=== PATIENT | male | born 1945 | race Caucasian/White ===

== ENCOUNTER 2016-10-26 06:59 | Day surgery (SDC) | payer MEDICARE ==
[2016-10-21 15:13] VITALS: BMI 27.8
[~2016-10-26 06:59] MED LIST: LACTATED RINGERS 1,000 ML IV SCH; LIDOCAINE 1% 20 ML VIAL (10MG/ML) FOR IV START INTRADERMA PRN
[2016-10-26] MEDS ORDERED: LACTATED RINGERS 1,000 ML IV ONE (07:30)
[2016-10-26] MEDS ORDERED: fentaNYL (PF) 50 MCG/ML 2 ML AMP IV ONE (07:45)
[2016-10-26 07:48] VITALS: RESP 16; TEMP 97.7
[2016-10-26] MEDS ORDERED: PROPOFOL 10 MG/ML 20 ML VIAL IV ONE (07:51)
--- NOTE | 2016-10-26 08:42 | P.PCN ---
Date of Procedure: 10/26/16 Procedure(s) Performed: Procedure: Total colonoscopy. Preoperative diagnosis: Screening for neoplasia. Postoperative diagnosis: Sigmoid diverticulosis with no evidence of acute diverticulitis, strictures, polyps or cancer. Preparation: HalfLytely prep. Sedation: Was provided by anesthesia. Brief clinical history: The patient is a 71-year-old male who is referred for this evaluation for screening for neoplasia. He had a prior exam around the time when he had diverticulitis 10 years ago. He has no abdominal complaints, bleeding or anemia. Procedure: With the patient on his left lateral decubitus position and after informed consent and adequate sedation, the perianal area was inspected and it did not show any fissures or fistulas. There were no masses felt on digital rectal examination. The Olympus CFQ 160L video colonoscope was then inserted in the rectum in the usual fashion and advanced to the cecum. Unfortunately, the preparation was less than ideal, however, I was able to clean most of the areas making sure that we are not missing significant polyps or tumors. I still think that smaller polyps or superficial pathology could have been missed in certain areas. There were multiple diverticular orifices seen scattered in the sigmoid but there was no evidence of acute diverticulitis or strictures. I retroflexed endoscope in the rectum before the endoscope was withdrawn. The patient tolerated the procedure well. Plan: The patient was reassured. Discussed dietary measures. In light of his less than ideal preparation, I suggested a repeat exam in 5 years. He will follow up with you as planned.
[2016-10-26 08:47] VITALS: PULSE 59
[2016-10-26 09:08] VITALS: BP 121/67
== END 2016-10-26 09:42 | disposition home or self-care (01) ==
LOC: ORWHC2ENDO 06:59
DX: Z12.11 Encounter for screening for malignant neoplasm of colon (principal); K57.30 Diverticulosis of large intestine without perforation or abscess without bleeding; E78.5 Hyperlipidemia, unspecified; Z79.899 Other long term (current) drug therapy
CPT/HCPCS: J3010; J2704; G0121; 45378; 99153

== ENCOUNTER → 2017-03-23 | Outpatient (CLI) | payer MEDICARE ==
--- NOTE | 2017-03-23 21:01 | MR ---
EXAMINATION TYPE: MR shoulder RT wo con DATE OF EXAM: 03/23/2017 COMPARISON: Outside right shoulder x-ray March 22, 2017. HISTORY: Rt shoulder pain x 10 mos, strained shoulder when cutting a tree TECHNIQUE: Multiplanar, multisequence imaging of the right shoulder is performed without contrast. FINDINGS: Rotator Cuff: Is increased signal distal supraspinatus tendon. There is full-thickness partial tear i nvolving anterior fibers measuring approximately 10 mm AP diameter on parasagittal image 8 near the a rticular surface. There is increased signal in the distal infraspinatus tendon. There is a regular te ar at articular surface is present with some fibers remaining intact and best paracoronal image 14. A rticular surface tears confirmed on parasagittal image 5. Rotator cuff muscle bulk is preserved. The subscapularis tendon appears intact. Surrounding fluid is noted. Acromioclavicular Joint: There is moderate joint space loss with mild spurring. Glenohumeral Joint: There is small to moderate glenohumeral joint effusion. There is joint space narr owing particularly inferiorly. Labrum: The labrum appears grossly intact given limitation of non-arthrogram study. Biceps Tendon: The long head of biceps is in normal location within bicipital groove. Bone marrow signal: No focal abnormal marrow signal is appreciated. Other: No additional significant abnormality is appreciated. IMPRESSION: 1. Severe tendinosis along with partial tears of the supraspinatus and infraspinatus tendons. Full-th ickness partial tear of the anterior fibers of supraspinatus tendon noted. 2. Moderate glenohumeral and acromioclavicular joint arthropathy as detailed above.
== END | disposition home or self-care (01) ==
LOC: RADMRIMAIN 16:56
PROVIDERS: ATTEND Orthopaedic Surgery
DX: S46.011A Strain of muscle(s) and tendon(s) of the rotator cuff of right shoulder, initial encounter (principal); M12.811 Other specific arthropathies, not elsewhere classified, right shoulder; M65.811 Other synovitis and tenosynovitis, right shoulder

== ENCOUNTER 2017-07-06 05:52 | Day surgery (SDC) | payer MEDICARE ==
--- NOTE | 2017-07-05 16:09 | HP ---
HISTORY AND PHYSICAL Surgery is 07/06/2017 Birgit Huff is a 72-year-old patient seen with progressive right shoulder pain. After treatment options were discussed, he elected to proceed with right shoulder arthroscopy. Consent regarding the procedure was obtained. Medical clearance was prior to Dr. Angeli Burton. PAST MEDICAL HISTORY: Hyperlipidemia. PAST SURGICAL HISTORY: Finger amputation. MEDICATIONS: 1. Simvastatin. 2. Multivitamins. ALLERGIES: None reported. SOCIAL HISTORY: Patient denies tobacco use. PHYSICAL EXAMINATION: Physical evaluation of the right shoulder: Flexion is 170 degrees, abduction 160 degrees. External rotation is 40 degrees with pain and weakness. There is tenderness on the anterolateral acromion rotator cuff insertion site. Impingement positive at 90 degrees. Distal neurovascular exam is intact. RADIOGRAPHS: Right shoulder revealed a type 3 anterior acromion and cystic changes of the tuberosity. An MRI of the right shoulder revealed rotator cuff tear. IMPRESSION: Right shoulder impingement with rotator cuff tear. PLAN: Right shoulder arthroscopy, subacromial decompression, probable arthroscopic rotator cuff repair and debridement. MMODL / IJN: [id number] /
[~2017-07-06 05:52] MED LIST changes: +DEXAMETHASONE SOD PHOSPHATE 10 MG/ML 1 ML VIAL IV ONE; +HYDROmorphone 1 MG/ML 1 ML SYRINGE IVP PRN; +ONDANSETRON 4 MG/2 ML VIAL IVP ONE; +ceFAZolin 2 GM in SODIUM CHLORIDE 0.9% 100 ML IVPB ONE
[2017-07-06 07:02] LABS: ALT 29 U/L (21-72); AST 20 U/L (17-59); Alkaline Phosphatase 51 U/L (38-126); Anion Gap 13 mmol/L; Blood Urea Nitrogen 27 mg/dL (9-20); Calcium 9.7 mg/dL (8.4-10.2); Carbon Dioxide 22 mmol/L (22-30); Chloride 108 mmol/L (98-107); Glucose 138 mg/dL (74-99); Non-African American GFR(MDRD) 54 (>60 ml/min/1.73 sqM); Potassium 4.3 mmol/L (3.5-5.1); Sodium 143 mmol/L (137-145); Total Bilirubin 0.6 mg/dL (0.2-1.3); Total Protein 6.7 g/dL (6.3-8.2)
[2017-07-06] MEDS ORDERED: MIDAZOLAM 2 MG/2 ML VIAL IVP ONE (07:10)
[2017-07-06] MEDS ORDERED: BUPIVACAINE (PF) 0.5% 30 ML VIAL ONE (07:30)
[2017-07-06] MEDS ORDERED: NEOSTIGMINE 1 MG/ML 10 ML VIAL ONE (07:30)
[2017-07-06] MEDS ORDERED: fentaNYL (PF) 50 MCG/ML 2 ML AMP ONE (07:30)
[2017-07-06] MEDS ORDERED: PHENYLEPHRINE-0.9% NACL SYG 1 MG/10 ML SYRINGE ONE (07:30)
[2017-07-06] MEDS ORDERED: SUCCINYLCHOLINE CHLORIDE 100 MG/5 ML SYR IV ONE (07:30)
[2017-07-06] MEDS ORDERED: ePHEDrine SULFATE/0.9% NACL/PF 50 MG/5 ML SYRINGE IV ONE (07:30)
[2017-07-06] MEDS ORDERED: LIDOCAINE 2% INJ 20 MG/ML (20 ML MDV) ONE (07:30)
[2017-07-06] MEDS ORDERED: ROCURONIUM BROMIDE 10 MG/ML 10 ML VIAL IV ONE (07:30)
[2017-07-06] MEDS ORDERED: LIDOCAINE 1% INJ 10MG/ML (20 ML MDV) ONE (07:30)
[2017-07-06] MEDS ORDERED: GLYCOPYRROLATE 0.2 MG/ML 2 ML VIAL ONE (07:30)
[2017-07-06] MEDS ORDERED: PROPOFOL 10 MG/ML 20 ML VIAL IV ONE (07:30)
[2017-07-06] MEDS ORDERED: LACTATED RINGERS 1,000 ML IV ONE (08:41)
--- NOTE | 2017-07-06 09:32 | P.OP ---
Date of Procedure: 07/06/17 Preoperative Diagnosis: Right shoulder impingement Postoperative Diagnosis: 1. Right shoulder rotator cuff tear 2. Right shoulder impingement 3. Right shoulder partial biceps tendon tear 4. Right shoulder superficial anterior/superior labral tears Procedure(s) Performed: 1. Right shoulder arthroscopic rotator cuff repair 2. Right shoulder arthroscopic subacromial decompression 3. Right shoulder arthroscopic biceps tenotomy 4. Right shoulder arthroscopic debridement labral tear Implants: 4-peek anchors Anesthesia: GETA, regional (Shoulder block) Surgeon: Von Way Capacity Manager #1: Saulo Salazar Estimated Blood Loss (ml): 15 Pathology: none sent Condition: stable Disposition: PACU Indications for Procedure: 72-year-old patient seen with progressive right shoulder pain. After treatment options were discussed, he elected to proceed with arthroscopy. Operative Findings: see description of procedure Description of Procedure: Patient underwent a shoulder block by department of anesthesia. The patient was then taken to the operative suite. The patient underwent a general anesthetic by the department of anesthesia. The patient was placed into a lateral position and secured. There was appropriate padding of the bony prominence. Right shoulder was then prepped and draped in normal sterile orthopedic fashion. We placed the extremity in 10 pounds of longitudinal traction. A posterior incision was now made for a posterior working portal site. The trocar and cannula were inserted into the glenohumeral joint. Arthroscopy was initiated. Spinal needle was now inserted anteriorly, to ascertain the anterior working portal site. An incision was now made in that area, a trocar was inserted followed by a probe. There was superficial tearing of the anterior and superior labrum. There was partial tearing of the long head biceps tendon, greater than 50%. There were grade 1 chondral moist changes of the humeral head and glenoid with no osteochondral tears present. There was an obvious rotator cuff tear visualized glenohumeral side. I performed an arthroscopic biceps tenotomy. I debrided the labral tear down to stable tissue. The residual labrum was found to be stable. Instruments were now removed from glenohumeral joint. Utilizing the posterior working portal site, the trocar and cannula were inserted into the subacromial space. Arthroscopy initiated. I made an incision 2 fingerbreadths lateral to the acromion. I introduced my trocar followed by my ArthroCare ablator. I now began ablating thick subacromial bursal tissue, which exposed the undersurface of the anterior acromion. This was diminished subacromial space. There was a very prominent anterior acromion. A motorized bur was introduced and a subacromial decompression was performed. I also excised some osteophytes off the inferior aspect of the distal clavicle. The AC joint was visualized and noted to be only moderately arthritic. I did not think enough toward a Kiley procedure. I now turned my attention to the rotator cuff. There was a large approximate 2.5 cm tear along the distal supraspinatus area. I debrided the margins down to stable tissue. I abraded the footprint with a motorized bur. I now created an assessory portal site off the lateral acromion. I now inserted 2 medial row anchors with 2 sutures each. We now passed all 8 limbs of suture through good bites of rotator cuff tendon. I now crisscrossed the sutures and introduced 2 lateral anchors compressing the tendon along the footprint very nicely. The residual suture limbs were clipped. The repair was probed and found to be stable. I now injected 1 mL Allogen intra-articular. Instruments now removed from the portal sites. All portal sites were approximated with nylon suture. Sterile dressings were applied followed by a shoulder immobilizer. Esvin MONTEZ assisted with the procedure. The patient was awakened, transferred to a bed, and taken to recovery in stable condition.
[2017-07-06 09:55] VITALS: TEMP 97.6
[2017-07-06 10:06] VITALS: RESP 16
[2017-07-06 11:56] VITALS: BP 133/71; PULSE 58
== END 2017-07-06 12:24 | disposition home or self-care (01) ==
LOC: OR 05:52
PROVIDERS: ATTEND Orthopaedic Surgery
DX: M75.101 Unspecified rotator cuff tear or rupture of right shoulder, not specified as traumatic (principal); M75.41 Impingement syndrome of right shoulder; S46.111A Strain of muscle, fascia and tendon of long head of biceps, right arm, initial encounter; S43.401A Unspecified sprain of right shoulder joint, initial encounter; M25.711 Osteophyte, right shoulder; X58.XXXA Exposure to other specified factors, initial encounter; I45.6 Pre-excitation syndrome; E78.5 Hyperlipidemia, unspecified; Z79.899 Other long term (current) drug therapy; Z79.82 Long term (current) use of aspirin
CPT/HCPCS: 80053; 29826; 29827; C1713 ×2; C1765; J2001 ×2; J2250; J1100; J2710; J0690; J2405; J3010; J2370; J0330; J2704

== ENCOUNTER → 2018-07-13 | Outpatient (CLI) | payer MEDICARE ==
--- NOTE | 2018-07-13 12:11 | CT ---
EXAMINATION TYPE: CT chest wo con DATE OF EXAM: 07/13/2018 COMPARISON: Chest x-ray 01/11/2014 HISTORY: Cough CT DLP: 272.8 mGycm. Automated Exposure Control for Dose Reduction was Utilized. TECHNIQUE: CT scan of the thorax is performed without IV contrast. FINDINGS: Lack of contrast may compromise sensitivity of the exam. LUNGS: The lungs are remarkable for minimal dependent atelectatic changes at the posterior lung bases . There is a 4 mm lung nodule in the right upper lobe axial image 27 which is indeterminate. There is no pleural effusion or pneumothorax seen. The tracheobronchial tree is patent. MEDIASTINUM: Lack of IV contrast is noted to limit evaluation for mediastinal and especially hilar ad enopathy. There are no definitive greater than 1 cm hilar or mediastinal lymph nodes. No cardiomega ly or pericardial effusion is seen. OTHER: No there are extensive coronary artery calcifications present. There is a small hiatal hernia present. Parapelvic cysts associated with the left kidney. Some metallic density present at the leve l of the head of the pancreas anteriorly is indeterminate. Right hemidiaphragm is elevated, there may be eventration. IMPRESSION: Indeterminate lung nodule, follow-up recommended in 6-12 months. Noncontrast exam. Donald ry artery disease. Additional findings above.
== END | disposition home or self-care (01) ==
LOC: RADCTMAIN 10:32
PROVIDERS: ATTEND Internal Medicine Pulmonary Disease
DX: I25.10 Atherosclerotic heart disease of native coronary artery without angina pectoris (principal)
CPT/HCPCS: 71250

== ENCOUNTER → 2018-10-30 | Outpatient (CLI) | payer MEDICARE ==
--- NOTE | 2018-10-30 14:58 | FL ---
EXAMINATION: Cervical and Thoracic Esophagram DATE OF EXAM: 10/30/2018 CLINICAL INDICATION: 73-year-old male with dysphagia, difficulty swallowing for 6 months. COMPARISON: None Total Fluoroscopy Time: 1 minute 43 seconds. Coronal images: 32. FINDINGS: The swallowing mechanism is normal and hypopharyngeal anatomy is preserved. The cervical and thoracic portions have a normal course and caliber. The mucosa is normal and no pers istent filling defect is encountered. However, there is moderate tertiary peristaltic contractions demonstrated. There is a small hiatal hernia. Valsalva and positional maneuvers failed to cause any gastroesophagea l reflux during the course of the exam. IMPRESSION: 1. Moderate esophageal tertiary peristalsis compatible with mild to moderate esophageal dysmotility. 2. Small hiatal hernia incidentally seen. No gastroesophageal reflux was identified during the course of the exam.
== END | disposition home or self-care (01) ==
LOC: RADFLWHC 09:42
PROVIDERS: ATTEND Family Medicine
DX: K44.9 Diaphragmatic hernia without obstruction or gangrene (principal); K22.4 Dyskinesia of esophagus
CPT/HCPCS: 74220

== ENCOUNTER 2019-01-29 09:11 | Day surgery (SDC) | payer MEDICARE ==
[2019-01-25 10:22] VITALS: BMI 26.2
[~2019-01-29 09:11] MED LIST changes: -DEXAMETHASONE SOD PHOSPHATE 10 MG/ML 1 ML VIAL IV ONE; -HYDROmorphone 1 MG/ML 1 ML SYRINGE IVP PRN; -ONDANSETRON 4 MG/2 ML VIAL IVP ONE; -ceFAZolin 2 GM in SODIUM CHLORIDE 0.9% 100 ML IVPB ONE
[2019-01-29 09:43] VITALS: RESP 16; TEMP 98.4
[2019-01-29] MEDS ORDERED: PROPOFOL 10 MG/ML 20 ML VIAL IV ONE (11:18)
[2019-01-29] MEDS ORDERED: LIDOCAINE 1% INJ 10MG/ML (20 ML MDV) ONE (11:18)
--- NOTE | 2019-01-29 11:45 | P.PCN ---
Date of Procedure: 01/29/19 Procedure(s) Performed: Procedure: Esophagogastroduodenoscopy and biopsy. Preoperative diagnosis: Dysphagia. Preoperative diagnosis: 1. Sliding hiatal hernia with no obvious esophagitis or complicated reflux disease. 2. Mild gastritis and duodenitis. 3. Biopsies obtained from the duodenum, antrum, cardia and esophagus. Preparation and sedation: Was provided by anesthesia. Brief clinical history: The patient is a 73-year-old male who was evaluated in the office earlier this month regarding dysphagia of one year duration which, apparently, has been getting progressively worse over the last 6 months. He had an esophagogram last month that showed a hiatal hernia and tertiary contractions. He does not take any medications for heartburn or reflux. His most difficulty is with breads and solids and some problems with his medications. No prior EGD. His last colonoscopy in October 2016 showed sigmoid diverticulosis. Procedure: With the patient on his left lateral decubitus position and after informed consent and adequate sedation, I passed the Olympus-GIF H 190 video upper endoscope through the cricopharyngeus down the esophagus. GE junction was around 38 cm from the incisors and there was a small sliding hiatal hernia but no definite esophagitis or any strictures or Parker's esophagus. The esophagus was showing sustained contractions and spasms as I was advancing the endoscope. The endoscope was then passed into the stomach which was insufflated with air and inspected in detail including the retroflex view in the cardia. There was diffuse mottling and erythema and I noted a prominent fold in the cardia. Pyloric channel did not show any ulcers. Duodenal bulb showed erythema and minimal friability but no ulcers. Post bulb area and descending duodenum did not show any obvious abnormalities. I obtained biopsies from the duodenum, antrum, cardia and esophagus then the endoscope was withdrawn. There was no indication to dilate in the absence of tight strictures. The patient tolerated the procedure well. Plan: The patient was reassured. Will await biopsy results. I will see him in follow-up in the office in make additional recommendations. I will keep you updated on his progress.
[2019-01-29 12:09] VITALS: BP 132/73; PULSE 53
== END 2019-01-29 12:13 | disposition home or self-care (01) ==
LOC: ORWHC2ENDO 09:11
DX: K29.50 Unspecified chronic gastritis without bleeding (principal); K44.9 Diaphragmatic hernia without obstruction or gangrene; K29.80 Duodenitis without bleeding; M19.90 Unspecified osteoarthritis, unspecified site; K21.0 Gastro-esophageal reflux disease with esophagitis; E78.5 Hyperlipidemia, unspecified; G47.33 Obstructive sleep apnea (adult) (pediatric); Z79.82 Long term (current) use of aspirin; Z79.899 Other long term (current) drug therapy; Z85.828 Personal history of other malignant neoplasm of skin
CPT/HCPCS: 88305; 43239; J2001; J2704

== ENCOUNTER → 2019-05-28 | Outpatient (CLI) | payer MEDICARE ==
--- NOTE | 2019-05-29 07:15 | MR ---
EXAMINATION TYPE: MR brain wo/w con DATE OF EXAM: 05/28/2019 COMPARISON: NONE HISTORY: Memory loss TECHNIQUE: Multiplanar, multisequence images of the brain and brainstem is performed without and with IV contras t, utilizing 6.5 mL intravenous Gadavist . FINDINGS: Diffusion weighted images demonstrate no evidence of a recent infarct or other diffusion ab normality. There is no worrisome extra-axial fluid collection. There is diffuse ventricular and sulc al prominence slightly more prominent over the bilateral frontal lobes. There are scattered foci of T 2 hyperintensity seen throughout the superficial, deep, and periventricular white matter. I estimate approximately 50 scattered small lesions. Midline structures demonstrate normal morphology. The craniocervical junction appears within normal limits. Post contrast images demonstrate no abnormal enhancement. The dural venous sinuses appear pa tent. The visualized sinuses are clear and the globes are intact. IMPRESSION: There is mild to moderate diffuse cerebral atrophy most prominent over the bilateral fron aly lobes with moderate chronic small vessel ischemic change present. No suspicious enhancement noted .
== END | disposition home or self-care (01) ==
LOC: RADMRIMAIN 15:21
PROVIDERS: ATTEND Psychiatry & Neurology Neurology
DX: G31.9 Degenerative disease of nervous system, unspecified (principal); I67.82 Cerebral ischemia
CPT/HCPCS: 70553; A9585

== ENCOUNTER → 2019-07-19 | Outpatient (CLI) | payer MEDICARE ==
--- NOTE | 2019-07-19 14:37 | CT ---
EXAMINATION TYPE: CT chest w con DATE OF EXAM: 07/19/2019 COMPARISON: 07/13/2008 HISTORY: Lung nodule CT DLP: 459 mGycm Automated exposure control for dose reduction was used. CONTRAST: CT scan of the chest is performed with IV Contrast, patient injected with 100 mL of Isovue 300. FINDINGS: LUNGS: The lungs are grossly clear. There is no pleural effusion or pneumothorax seen. The tracheo bronchial tree is patent. There is a stable 4 mm nodule. Linear changes at the lung bases most typica l atelectasis or scar. MEDIASTINUM: There are no greater than 1 cm hilar or mediastinal lymph nodes. There is a tiny pericar dial effusion seen. Extensive coronary artery calcifications. OTHER: Small hiatal hernia noted. Parapelvic renal cysts noted. Stable right hemidiaphragm elevation . Hypertrophic and degenerative change of the spine. There is haziness within the left upper quadrant mesentery IMPRESSION: 1. Stable 4 mm right upper lobe pulmonary nodule unchanged from the prior exam. Confirming stability over the course of 2 years recommended. Therefore, six-month follow-up recommended. 2. Extensive coronary artery calcification. 3. Nonspecific haziness to the mesentery the left upper quadrant is only partially included on exam. Recommend dedicated CT of the abdomen pelvis for further evaluation. .
== END | disposition home or self-care (01) ==
LOC: RADCTMAIN 12:51
PROVIDERS: ATTEND Family Medicine
DX: I25.10 Atherosclerotic heart disease of native coronary artery without angina pectoris (principal); R91.1 Solitary pulmonary nodule
CPT/HCPCS: 82565; 84520; 71260; 36415; Q9967

== ENCOUNTER → 2020-03-12 | Outpatient (CLI) | payer MEDICARE ==
--- NOTE | 2020-03-12 16:12 | CT ---
EXAMINATION TYPE: CT chest w con DATE OF EXAM: 03/12/2020 COMPARISON: 07/19/2019 and 07/13/2018 HISTORY: 75-year-old male follow up solitary pulmonary nodule TECHNIQUE: Contiguous axial scanning of the chest after the administration of 100 mL of Isovue 300. Coronal/sagittal reconstructions performed. CT DLP: 212.6mGycm. Automatic exposure control utilized for a dose reduction. FINDINGS: Heart normal size with a small anterior pericardial effusion, minimally increased from 07/19/2019. Co ronary artery calcifications are present. Aorta normal caliber with conventional branching anatomy. No thoracic lymphadenopathy by CT size criteria. Mild dependent atelectasis and some strandy right basilar atelectasis. 4 mm right middle lobe pulmonary nodule unchanged for 8 months. This suggests a benign etiology. 3 mm lingular pulmonary nodule, axial image 30, unchanged. No consolidation or pleural effusion. Small hiatal hernia. Otherwise, the visualized upper abdomen shows parapelvic cysts within the left k idney. Moderate stool burden is visualized. Bones: Moderate degenerative disc disease midthoracic spine. IMPRESSION: A couple pulmonary nodules measuring up to 4 mm stable for nearly 2 years back to 07/13/2018. Findings suggest a benign etiology. CAD. Small hiatal hernia.
== END | disposition home or self-care (01) ==
LOC: RADCTMAIN 14:14
PROVIDERS: ATTEND Family Medicine
DX: R91.1 Solitary pulmonary nodule (principal); I25.10 Atherosclerotic heart disease of native coronary artery without angina pectoris; K44.9 Diaphragmatic hernia without obstruction or gangrene
CPT/HCPCS: 82565; 84520; 71260; 36415; Q9967

== ENCOUNTER 2020-12-21 15:35 | Emergency (ER) | payer MEDICARE ==
[2020-12-21 15:50] VITALS: RESP 18
--- NOTE | 2020-12-21 16:15 | ED ---
General Adult HPI - General Stated complaint: SOB Time Seen by Provider: 12/21/20 15:48 Source: patient Mode of arrival: ambulatory Limitations: no limitations - History of Present Illness Initial comments: Birgit is a 75-year-old male who presents to the ER today with his with a multitude of vague complaints. Patient has a long history of obstructive sleep apnea and has been prescribed a CPAP in the past, he is really recently lost a significant amount of weight and was prescribed a new CPAP mask which she doesn't feel fits well. Patient reports he only wears CPAP for about one hour per night. He admits that he is not sleeping well and he is fatigued and tired throughout the day every day. reports that he nods off frequently while sitting during the day. reports that today they were sitting on a couch when the patient stood up and seemed somewhat disoriented. This is atypical for him. decided to bring him the ER for evaluation. Of note the patient does have a history of Parkinson's disease. Approximately 2 months ago the patient's Sinemet dose was doubled but it caused him side effects including constipation which prompted him to decrease the dose. reports that they would prefer he do with the tremors rather than the side effects of the higher dose of medication. Patient has only had for 4 visits with neurology and has not been seen in person. - Related Data Home Medications Medication Instructions Recorded Confirmed Nature[employer] Nutrition Vitamin 1 pack PO DAILY 10/21/16 01/25/19 Pack Simvastatin [Zocor] 10 mg PO HS 10/21/16 01/25/19 Aspirin [Adult Low Dose Aspirin EC] 81 mg PO DAILY 06/30/17 01/25/19 [place]-3 Fatty Acids/Fish Oil [Fish 1 cap PO DAILY 06/30/17 01/25/19 Oil 1,000 mg Softgel] Vit C/E/Zn/Coppr/Lutein/Zeaxan 1 cap PO DAILY 06/30/17 01/25/19 [Preservision Areds 2 Softgel] polyethylene glycoL 3350 [Miralax] 17 gm PO Q48H 06/30/17 01/25/19 Saw [place] 500 mg PO DAILY 01/25/19 01/25/19 Allergies Allergy/AdvReac Type Severity Reaction Status Date / Time No Known Allergies Allergy Verified 12/21/20 15:49 Review of Systems ROS Statement: Those systems with pertinent positive or pertinent negative responses have been documented in the HPI. ROS Other: All systems not noted in ROS Statement are negative. Past Medical History Past Medical History: Cancer, Hyperlipidemia, Osteoarthritis (OA), Sleep Apnea/CPAP/BIPAP Additional Past Medical History / Comment(s): hx Lbjsd-Tdyodefcv-Jshdg, Skin CA. small hiatal hernia, diff swallowing, arthritis rt hand, Parkinson History of Any Multi-Drug Resistant Organisms: None Reported Past Surgical History: Cardiac Ablation, Orthopedic Surgery Additional Past Surgical History / Comment(s): skin cancer removed from forehead, .Lt ring finger amputation. arthroscopic surgery on left hip and left knee Past Anesthesia/Blood Transfusion Reactions: No Reported Reaction Past Psychological History: No Psychological Hx Reported Smoking Status: Never smoker Past Alcohol Use History: Rare Past Drug Use History: None Reported - Past Family History Mother Family Medical History: Cancer Additional Family Medical History / Comment(s): Breast CA. Father Family Medical History: Cancer Additional Family Medical History / Comment(s): Prostate CA with mets to liver and colon Sister(s) Family Medical History: Cancer Additional Family Medical History / Comment(s): Ovarian CA. General Exam - General Exam Comments Initial Comments: Physical Exam GENERAL: Elderly gentleman in no acute distress HENT: Normocephalic, Atraumatic. EYES: PERRL, EOMI PULMONARY: Unlabored respirations. No audible rales rhonchi or wheezing was noted. CARDIOVASCULAR: There is a regular rate and rhythm without any murmurs gallops or rubs. ABDOMEN: Soft and nontender with normal bowel sounds. SKIN: Skin is clear with no lesions or rashes and otherwise unremarkable. : Deferred NEUROLOGIC: Patient is alert and oriented x3. Moving all extremities spontaneously MUSCULOSKELETAL: Normal extremities with adequate strength and full range of motion. No lower extremity swelling or edema. No calf tenderness. PSYCHIATRIC: Normal psychiatric evaluation. Limitations: no limitations Course Vital Signs 12/21/20 12/21/20 15:44 17:30 Temperature 98.1 F 97.9 F Pulse Rate 67 62 Respiratory 18 18 Rate Blood Pressure 138/67 138/76 O2 Sat by Pulse 98 98 Oximetry EKG Findings - EKG Comments: EKG Findings:: EKG was obtained at 1557, rate of 65 rhythm junctional versus slow A. fib, QRS 86 QTC [address] elevations or depressions no ischemia or infarction. Medical Decision Making - Medical Decision Making Patient was seen and evaluated history was obtained from patient and My concern that the patient is fatigued not wearing his CPAP at night and having episodes of confusion Labs and imaging were obtained came back with no acute findings, likely feels reassured by his would prefer outpatient follow-up as they don't want to stay in the hospital at this time. - Lab Data Result diagrams: 12/21/20 16:23 12/21/20 16:23 Lab Results 12/21/20 12/21/20 Range/Units 16:23 16:23 WBC 5.3 (3.8-10.6) k/uL RBC 4.30 (4.30-5.90) m/uL Hgb 13.9 (13.0-17.5) gm/dL Hct 41.6 (39.0-53.0) % MCV 96.8 (80.0-100.0) fL MCH 32.5 (25.0-35.0) pg MCHC 33.5 (31.0-37.0) g/dL RDW 12.7 (11.5-15.5) % Plt Count 184 (150-450) k/uL MPV 8.1 Neutrophils % 67 % Lymphocytes % 22 % Monocytes % 7 % Eosinophils % 2 % Basophils % 1 % Neutrophils # 3.5 (1.3-7.7) k/uL Lymphocytes # 1.1 (1.0-4.8) k/uL Monocytes # 0.4 (0-1.0) k/uL Eosinophils # 0.1 (0-0.7) k/uL Basophils # 0.0 (0-0.2) k/uL Sodium 138 (137-145) mmol/L Potassium 4.3 (3.5-5.1) mmol/L Chloride 101 (98-107) mmol/L Carbon Dioxide 32 H (22-30) mmol/L Anion Gap 5 mmol/L BUN 22 H (9-20) mg/dL Creatinine 1.30 H (0.66-1.25) mg/dL Est GFR (CKD-EPI)AfAm 62 (>60 ml/min/1.73 sqM) Est GFR (CKD-EPI)NonAf 54 (>60 ml/min/1.73 sqM) Glucose 173 H (74-99) mg/dL Calcium 9.2 (8.4-10.2) mg/dL Total Bilirubin 0.4 (0.2-1.3) mg/dL AST 24 (17-59) U/L ALT 6 (4-49) U/L Alkaline Phosphatase 65 (38-126) U/L Total Protein 6.4 (6.3-8.2) g/dL Albumin 4.2 (3.5-5.0) g/dL Disposition Clinical Impression: Obstructive sleep apnea, Parkinson disease Disposition: HOME SELF-CARE Condition: Stable Instructions (If sedation given, give patient instructions): Sleep Apnea (DC) Is patient prescribed a controlled substance at d/c from ED?: No Referrals: Angeli Burton MD [Primary Care Provider] - 1-2 days
[2020-12-21 16:33] LABS: Basophils % (A) 1 %; Eosinophils # (A) 0.1 k/uL (0-0.7); Eosinophils % (A) 2 %; HCT 41.6 % (39.0-53.0); HGB 13.9 gm/dL (13.0-17.5); Lymphocytes # (A) 1.1 k/uL (1.0-4.8); Lymphocytes % (A) 22 %; MCH 32.5 pg (25.0-35.0); MCHC 33.5 g/dL (31.0-37.0); MCV 96.8 fL (80.0-100.0); Mean Platelet Volume 8.1; Monocytes # (A) 0.4 k/uL (0-1.0); Monocytes % (A) 7 %; Neutrophils # (A) 3.5 k/uL (1.3-7.7); Neutrophils % (A) 67 %; Platelet Count 184 k/uL (150-450); RDW 12.7 % (11.5-15.5); WBC 5.3 k/uL (3.8-10.6)
[2020-12-21 16:44] LABS: Albumin 4.2 g/dL (3.5-5.0); Calcium 9.2 mg/dL (8.4-10.2); Potassium 4.3 mmol/L (3.5-5.1); Total Bilirubin 0.4 mg/dL (0.2-1.3); Total Protein 6.4 g/dL (6.3-8.2)
--- NOTE | 2020-12-21 16:55 | CT ---
EXAMINATION TYPE: CT brain wo con DATE OF EXAM: 12/21/2020 COMPARISON: None HISTORY: Altered mental status. Increased tremors with Parkinson's disease. CT DLP: 1107.4 mGycm Automated exposure control for dose reduction was used. Images obtained of the brain without contrast. There is cerebral cortical atrophy. There is no mass effect nor midline shift. There is no sign of in tracranial hemorrhage. There is normal aeration of the mastoid sinuses. Calvarium is intact. IMPRESSION: Cerebral atrophy. No acute intracranial abnormality.
[2020-12-21 17:32] VITALS: BP 138/76; PULSE 62; TEMP 97.9
== END 2020-12-21 18:28 | disposition home or self-care (01) ==
LOC: EC 15:35
DX: G47.33 Obstructive sleep apnea (adult) (pediatric) (principal); G20 Parkinson's disease; M19.90 Unspecified osteoarthritis, unspecified site; E78.5 Hyperlipidemia, unspecified
CPT/HCPCS: 36415; 70450; 80053; 85025; 93005; 99284

== ENCOUNTER 2021-04-24 22:57 | Emergency (ER) | payer MEDICARE ==
[2021-04-24 23:01] VITALS: BP 136/73; RESP 16; TEMP 98.8
[2021-04-24] MEDS ORDERED: ONDANSETRON 4 MG/2 ML VIAL IVP STA (23:27)
[2021-04-24] MEDS ORDERED: SODIUM CHLORIDE 0.9% 1,000 ML IV STA (23:27)
--- NOTE | 2021-04-24 23:57 | XR ---
EXAMINATION TYPE: XR KUB DATE OF EXAM: 04/24/2021 COMPARISON: 01/11/2014 HISTORY: Pain TECHNIQUE: 2 views upright FINDINGS: There is no sign of intestinal obstruction or pneumoperitoneum. Fecal pattern is normal. Angeli ng bases are clear. There are no pathologic calcifications. There is calcification of the vas deferen s. Sacroiliac joints are intact. IMPRESSION: Nonacute abdomen. No adverse change.
[2021-04-25 00:14] LABS: Basophils % (A) 0 %; Eosinophils # (A) 0.1 k/uL (0-0.7); Eosinophils % (A) 2 %; HCT 42.3 % (39.0-53.0); HGB 13.7 gm/dL (13.0-17.5); Lymphocytes # (A) 0.9 k/uL (1.0-4.8); Lymphocytes % (A) 15 %; MCH 31.1 pg (25.0-35.0); MCHC 32.5 g/dL (31.0-37.0); MCV 95.7 fL (80.0-100.0); Monocytes # (A) 0.3 k/uL (0-1.0); Monocytes % (A) 5 %; Neutrophils # (A) 4.5 k/uL (1.3-7.7); Neutrophils % (A) 76 %; Platelet Count 187 k/uL (150-450); RBC 4.41 m/uL (4.30-5.90)
[2021-04-25 00:20] VITALS: PULSE 53
[2021-04-25 00:24] LABS: ALT <6 U/L (4-49); AST 34 U/L (17-59); African American GFR (CKD) 66 (>60 ml/min/1.73 sqM); Albumin 4.2 g/dL (3.5-5.0); Alkaline Phosphatase 65 U/L (38-126); Anion Gap 7 mmol/L; Blood Urea Nitrogen 26 mg/dL (9-20); Calcium 9.8 mg/dL (8.4-10.2); Carbon Dioxide 30 mmol/L (22-30); Chloride 101 mmol/L (98-107); Glucose 128 mg/dL (74-99); Non-African American GFR(CKD) 57 (>60 ml/min/1.73 sqM); Potassium 4.4 mmol/L (3.5-5.1); Sodium 138 mmol/L (137-145); Total Bilirubin 0.4 mg/dL (0.2-1.3); Total Protein 6.4 g/dL (6.3-8.2)
--- NOTE | 2021-04-25 00:33 | ED ---
General Adult HPI - General Chief complaint: Nausea/Vomiting/Diarrhea Stated complaint: Vomiting Time Seen by Provider: 04/24/21 23:06 Source: patient, family, RN notes reviewed Mode of arrival: ambulatory Limitations: no limitations - History of Present Illness Initial comments: Patient is a 76-year-old male that presented to the emergency department c omplaining of a 2-3 days history of nausea with vomiting. He notes that he only vomits at night but is nauseous throughout the day. He notes that he's recently diagnosed with Parkinson's and was wondering if that headache is due to. Patient was a well-appearing 76-year-old male in no apparent distress or pain while sitting up in bed during the exam and interview. He denied any hematemesis. He noted that he does takes medications as prescribed. He denied any other issues. He denied any chest pain shortness of breath headache constipation diarrhea fever fatigue chills hematochezia melena. - Related Data Home Medications Medication Instructions Recorded Confirmed Nature's Code Nutrition Vitamin 1 pack PO DAILY 10/21/16 01/25/19 Pack Simvastatin [Zocor] 10 mg PO HS 10/21/16 01/25/19 Aspirin [Adult Low Dose Aspirin EC] 81 mg PO DAILY 06/30/17 01/25/19 [place]-3 Fatty Acids/Fish Oil [Fish 1 cap PO DAILY 06/30/17 01/25/19 Oil 1,000 mg Softgel] Vit C/E/Zn/Coppr/Lutein/Zeaxan 1 cap PO DAILY 06/30/17 01/25/19 [Preservision Areds 2 Softgel] polyethylene glycoL 3350 [Miralax] 17 gm PO Q48H 06/30/17 01/25/19 Saw [place] 500 mg PO DAILY 01/25/19 01/25/19 Previous Rx's Medication Instructions Recorded Ondansetron Odt [Zofran Odt] 4 mg PO Q8HR PRN #10 tab 04/25/21 Allergies Allergy/AdvReac Type Severity Reaction Status Date / Time No Known Allergies Allergy Verified 04/24/21 23:01 Review of Systems ROS Statement: Those systems with pertinent positive or pertinent negative responses have been documented in the HPI. ROS Other: All systems not noted in ROS Statement are negative. Past Medical History Past Medical History: Cancer, Hyperlipidemia, Osteoarthritis (OA), Sleep Apnea/CPAP/BIPAP Additional Past Medical History / Comment(s): hx Fljrt-Cbtteskut-Ttqgd, Skin CA. small hiatal hernia, diff swallowing, arthritis rt hand, Parkinson History of Any Multi-Drug Resistant Organisms: None Reported Past Surgical History: Cardiac Ablation, Orthopedic Surgery Additional Past Surgical History / Comment(s): skin cancer removed from forehead, .Lt ring finger amputation. arthroscopic surgery on left hip and left knee Past Anesthesia/Blood Transfusion Reactions: No Reported Reaction Past Psychological History: No Psychological Hx Reported Smoking Status: Never smoker Past Alcohol Use History: Rare Past Drug Use History: None Reported - Past Family History Mother Family Medical History: Cancer Additional Family Medical History / Comment(s): Breast CA. Father Family Medical History: Cancer Additional Family Medical History / Comment(s): Prostate CA with mets to liver and colon Sister(s) Family Medical History: Cancer Additional Family Medical History / Comment(s): Ovarian CA. General Exam Limitations: no limitations General appearance: alert, in no apparent distress Head exam: Present: atraumatic, normocephalic, normal inspection Eye exam: Present: normal appearance, PERRL, EOMI. Absent: scleral icterus, conjunctival injection, periorbital swelling Neck exam: Present: normal inspection Respiratory exam: Present: normal lung sounds bilaterally. Absent: respiratory distress, wheezes, rales, rhonchi, stridor Cardiovascular Exam: Present: regular rate, normal rhythm, normal heart sounds. Absent: systolic murmur, diastolic murmur, rubs, gallop, clicks GI/Abdominal exam: Present: soft, normal bowel sounds, other (Discomfort on the left side). Absent: distended, tenderness, guarding, rebound, rigid Extremities exam: Present: normal inspection, full ROM, normal capillary refill. Absent: tenderness, pedal edema, joint swelling, calf tenderness Neurological exam: Present: alert, oriented X3 Psychiatric exam: Present: normal affect, normal mood Skin exam: Present: warm, dry, intact, normal color. Absent: rash Course Vital Signs 04/24/21 04/25/21 22:59 00:00 Temperature 98.8 F Pulse Rate 55 L 53 L Respiratory 16 16 Rate Blood Pressure 136/73 O2 Sat by Pulse 98 98 Oximetry Medical Decision Making - Medical Decision Making 76-year-old male complaining of nausea and vomiting for the past several days. Labs: Normal saline, 4 mg of Zofran ordered. KUB ordered, nonacute abdomen. Labs unremarkable. Case discussed with Dr. Mejias, patient can discharge home with follow-up to primary care. - Lab Data Result diagrams: 04/25/21 00:00 04/25/21 00:00 Lab Results 04/25/21 04/25/21 Range/Units 00:00 00:00 WBC 6.0 (3.8-10.6) k/uL RBC 4.41 (4.30-5.90) m/uL Hgb 13.7 (13.0-17.5) gm/dL Hct 42.3 (39.0-53.0) % MCV 95.7 (80.0-100.0) fL MCH 31.1 (25.0-35.0) pg MCHC 32.5 (31.0-37.0) g/dL RDW 13.0 (11.5-15.5) % Plt Count 187 (150-450) k/uL MPV 8.0 Neutrophils % 76 % Lymphocytes % 15 % Monocytes % 5 % Eosinophils % 2 % Basophils % 0 % Neutrophils # 4.5 (1.3-7.7) k/uL Lymphocytes # 0.9 L (1.0-4.8) k/uL Monocytes # 0.3 (0-1.0) k/uL Eosinophils # 0.1 (0-0.7) k/uL Basophils # 0.0 (0-0.2) k/uL Sodium 138 (137-145) mmol/L Potassium 4.4 (3.5-5.1) mmol/L Chloride 101 (98-107) mmol/L Carbon Dioxide 30 (22-30) mmol/L Anion Gap 7 mmol/L BUN 26 H (9-20) mg/dL Creatinine 1.23 (0.66-1.25) mg/dL Est GFR (CKD-EPI)AfAm 66 (>60 ml/min/1.73 sqM) Est GFR (CKD-EPI)NonAf 57 (>60 ml/min/1.73 sqM) Glucose 128 H (74-99) mg/dL Calcium 9.8 (8.4-10.2) mg/dL Total Bilirubin 0.4 (0.2-1.3) mg/dL AST 34 (17-59) U/L ALT <6 (4-49) U/L Alkaline Phosphatase 65 (38-126) U/L Total Protein 6.4 (6.3-8.2) g/dL Albumin 4.2 (3.5-5.0) g/dL Disposition Clinical Impression: Nausea & vomiting Disposition: HOME SELF-CARE Condition: Stable Instructions (If sedation given, give patient instructions): Acute Nausea and Vomiting (ED) Additional Instructions: Please return to the Emergency Department if symptoms worsen or any other concerns. Follow-up with primary care in the next several days. Eat foods as tolerated. Prescriptions: Ondansetron Odt [Zofran Odt] 4 mg PO Q8HR PRN #10 tab PRN Reason: Nausea Is patient prescribed a controlled substance at d/c from ED?: No Referrals: Angeli Burton MD [Primary Care Provider] - 1-2 days Time of Disposition: 00:49
== END 2021-04-25 01:23 | disposition home or self-care (01) ==
LOC: EC 22:57
DX: R11.2 Nausea with vomiting, unspecified (principal); E78.5 Hyperlipidemia, unspecified; G20 Parkinson's disease; G47.30 Sleep apnea, unspecified; M19.041 Primary osteoarthritis, right hand; Z79.82 Long term (current) use of aspirin; Z79.899 Other long term (current) drug therapy
CPT/HCPCS: 36415; 80053; 85025; 74018; 99284; 96374; 96361; J2405

== ENCOUNTER 2022-02-07 18:57 | Emergency (ER) | payer MEDICARE ==
[2022-02-07 19:18] VITALS: TEMP 98.1
[2022-02-07 20:11] LABS: Basophils % (A) 1 %; Eosinophils # (A) 0.2 k/uL (0-0.7); Eosinophils % (A) 3 %; HCT 41.6 % (39.0-53.0); Lymphocytes # (A) 1.2 k/uL (1.0-4.8); Lymphocytes % (A) 20 %; MCH 30.6 pg (25.0-35.0); MCHC 31.3 g/dL (31.0-37.0); MCV 97.7 fL (80.0-100.0); Mean Platelet Volume 8.4; Monocytes # (A) 0.3 k/uL (0-1.0); Monocytes % (A) 5 %; Neutrophils # (A) 4.3 k/uL (1.3-7.7); Neutrophils % (A) 70 %; Platelet Count 194 k/uL (150-450); RBC 4.26 m/uL (4.30-5.90); RDW 12.8 % (11.5-15.5); WBC 6.1 k/uL (3.8-10.6)
--- NOTE | 2022-02-07 20:18 | XR ---
EXAMINATION TYPE: XR chest 2V DATE OF EXAM: 02/07/2022 COMPARISON: Chest x-ray January 11, 2014. CT chest March 12, 2020 HISTORY: Difficulty in breathing. TECHNIQUE: Frontal and lateral views of the chest are obtained. FINDINGS: There is mild chronic parenchymal change bilaterally without suspicious focal air space op acity, pleural effusion, or pneumothorax seen. Symmetric densities over the lung bases correlate to p atient's nipples. The cardiac silhouette size remains within normal limits. Underlying scoliosis cent ered in the upper lumbar spine is present. IMPRESSION: Chronic changes without acute pulmonary process.
[2022-02-07 20:24] LABS: INR 0.9 (<1.2); Partial Thromboplastin Time 23.1 sec (22.0-30.0); Prothrombin Time 10.1 sec (9.0-12.0)
[2022-02-07 20:53] LABS: ALT <6 U/L (4-49); AST 28 U/L (17-59); African American GFR (CKD) 68 (>60 ml/min/1.73 sqM); Albumin 4.3 g/dL (3.5-5.0); Alkaline Phosphatase 55 U/L (38-126); Anion Gap 6 mmol/L; Blood Urea Nitrogen 33 mg/dL (9-20); Calcium 9.4 mg/dL (8.4-10.2); Carbon Dioxide 30 mmol/L (22-30); Chloride 104 mmol/L (98-107); Glucose 123 mg/dL (74-99); Non-African American GFR(CKD) 58 (>60 ml/min/1.73 sqM); Potassium 4.6 mmol/L (3.5-5.1); Sodium 140 mmol/L (137-145); Total Bilirubin 0.6 mg/dL (0.2-1.3); Total Protein 6.7 g/dL (6.3-8.2)
--- NOTE | 2022-02-07 21:13 | ED ---
General Adult HPI - General Chief complaint: Shortness of Breath Stated complaint: SOB Time Seen by Provider: 02/07/22 21:12 Source: patient Mode of arrival: wheelchair - History of Present Illness Initial comments: Patient presents to the ED with his for evaluation. Patient states that he has had intermittent dyspnea over the past 3 weeks or so. Patient states that his dyspnea seems to be worse today. Patient states that his dyspnea is worse when he lays flat. Patient admits that he did recently return from a road trip to [place]. Patient states that he is fully vaccinated against Covid. Patient denies having any pain, fever or chills, headache, focal neuro deficit, sore throat, neck/arm/jaw/back pain, chest pain or pressure, cough or cold symptoms, palpitations, dizziness, nausea/vomiting/diarrhea, abdominal pain, bloody or melanotic stool, dysuria or urinary symptoms, decreased urine output, leg or calf swelling or pain, or any other symptoms or complaints. - Related Data Home Medications Medication Instructions Recorded Confirmed Nature's Code Nutrition Vitamin 1 pack PO DAILY 10/21/16 01/25/19 Pack Simvastatin [Zocor] 10 mg PO HS 10/21/16 01/25/19 Aspirin [Adult Low Dose Aspirin EC] 81 mg PO DAILY 06/30/17 01/25/19 [place]-3 Fatty Acids/Fish Oil [Fish 1 cap PO DAILY 06/30/17 01/25/19 Oil 1,000 mg Softgel] Vit C/E/Zn/Coppr/Lutein/Zeaxan 1 cap PO DAILY 06/30/17 01/25/19 [Preservision Areds 2 Softgel] polyethylene glycoL 3350 [Miralax] 17 gm PO Q48H 06/30/17 01/25/19 Saw [place] 500 mg PO DAILY 01/25/19 01/25/19 Previous Rx's Medication Instructions Recorded Ondansetron Odt [Zofran Odt] 4 mg PO Q8HR PRN #10 tab 04/25/21 Allergies Allergy/AdvReac Type Severity Reaction Status Date / Time No Known Allergies Allergy Verified 02/07/22 19:18 Review of Systems ROS Statement: Those systems with pertinent positive or pertinent negative responses have been documented in the HPI. ROS Other: All systems not noted in ROS Statement are negative. Past Medical History Past Medical History: Cancer, Hyperlipidemia, Osteoarthritis (OA), Sleep Apnea/CPAP/BIPAP Additional Past Medical History / Comment(s): hx Nocxn-Ouljtnowo-Qnhjl, Skin CA. small hiatal hernia, diff swallowing, arthritis rt hand, Parkinson History of Any Multi-Drug Resistant Organisms: None Reported Past Surgical History: Cardiac Ablation, Orthopedic Surgery Additional Past Surgical History / Comment(s): skin cancer removed from forehead , .Lt ring finger amputation. arthroscopic surgery on left hip and left knee Past Anesthesia/Blood Transfusion Reactions: No Reported Reaction Past Psychological History: No Psychological Hx Reported Smoking Status: Never smoker Past Alcohol Use History: Rare Past Drug Use History: None Reported - Past Family History Mother Family Medical History: Cancer Additional Family Medical History / Comment(s): Breast CA. Father Family Medical History: Cancer Additional Family Medical History / Comment(s): Prostate CA with mets to liver and colon Sister(s) Family Medical History: Cancer Additional Family Medical History / Comment(s): Ovarian CA. General Exam Limitations: no limitations General appearance: alert, in no apparent distress Head exam: Present: atraumatic, normocephalic Eye exam: Present: normal appearance, PERRL, EOMI ENT exam: Present: mucous membranes moist Neck exam: Present: other (Trachea is in midline) Respiratory exam: Present: normal lung sounds bilaterally. Absent: respiratory distress, wheezes, rales, rhonchi, stridor Cardiovascular Exam: Present: regular rate, normal rhythm, normal heart sounds, other (Normal radial pulses bilaterally) GI/Abdominal exam: Present: soft. Absent: distended, tenderness, guarding Extremities exam: Present: other (Negative Homans sign bilaterally). Absent: tenderness, pedal edema, calf tenderness Neurological exam: Present: alert, oriented X3, other (Parkinson's tremor is present). Absent: motor sensory deficit Psychiatric exam: Present: normal affect, normal mood Skin exam: Present: warm, dry, intact, normal color Course Vital Signs 02/07/22 02/07/22 19:16 21:18 Temperature 98.1 F Pulse Rate 48 L 67 Respiratory 22 16 Rate Blood Pressure 128/54 137/84 O2 Sat by Pulse 100 98 Oximetry - Reevaluation(s) Reevaluation #1: 02/07/22 23:21 Patient denies development of any new symptoms while in the ED. Patient remains alert and breathing comfortably with a normal room air oxygen saturation and clear breath sounds bilaterally. Patient and are aware the patient's test results, and they both feel comfortable with the patient being discharged home at this time. They were counseled about dyspnea, and they were clearly explained return and follow-up instructions. Patient was instructed to follow up closely with his primary care provider. Patient was also instructed to have a low threshold for return to the emergency department should his symptoms wo rsen. Patient feels comfortable with this plan. EKG Findings - EKG Comments: EKG Findings:: Normal sinus rhythm, ventricular rate of 68 bpm, occasional premature supraventricular complexes, normal AL and QRS intervals, normal QT interval, normal axis, no ST or T-wave abnormality Medical Decision Making - Medical Decision Making Patient's labs and chest x-ray are fairly unremarkable. Patient is breathing comfortably in the ED with clear breath sounds bilaterally and a normal room air oxygen saturation. Patient is afebrile and without leukocytosis. Patient's Covid test, troponin, BNP and d-dimer are all negative. I do not suspect an emergent medical condition at this time. Will discharge patient home with his at this time. Patient feels comfortable with this plan. - Lab Data Result diagrams: 02/07/22 19:55 02/07/22 19:55 Lab Results 02/07/22 02/07/22 02/07/22 Range/Units 19:55 19:55 19:55 WBC 6.1 (3.8-10.6) k/uL RBC 4.26 L (4.30-5.90) m/uL Hgb 13.0 (13.0-17.5) gm/dL Hct 41.6 (39.0-53.0) % MCV 97.7 (80.0-100.0) fL MCH 30.6 (25.0-35.0) pg MCHC 31.3 (31.0-37.0) g/dL RDW 12.8 (11.5-15.5) % Plt Count 194 (150-450) k/uL MPV 8.4 Neutrophils % 70 % Lymphocytes % 20 % Monocytes % 5 % Eosinophils % 3 % Basophils % 1 % Neutrophils # 4.3 (1.3-7.7) k/uL Lymphocytes # 1.2 (1.0-4.8) k/uL Monocytes # 0.3 (0-1.0) k/uL Eosinophils # 0.2 (0-0.7) k/uL Basophils # 0.0 (0-0.2) k/uL PT 10.1 (9.0-12.0) sec INR 0.9 (<1.2) APTT 23.1 (22.0-30.0) sec D-Dimer 0.28 (<0.60) mg/L FEU Sodium 140 (137-145) mmol/L Potassium 4.6 (3.5-5.1) mmol/L Chloride 104 (98-107) mmol/L Carbon Dioxide 30 (22-30) mmol/L Anion Gap 6 mmol/L BUN 33 H (9-20) mg/dL Creatinine 1.21 (0.66-1.25) mg/dL Est GFR (CKD-EPI)AfAm 68 (>60 ml/min/1.73 sqM) Est GFR (CKD-EPI)NonAf 58 (>60 ml/min/1.73 sqM) Glucose 123 H (74-99) mg/dL Plasma Lactic Acid Lux (0.7-2.0) mmol/L Calcium 9.4 (8.4-10.2) mg/dL Total Bilirubin 0.6 (0.2-1.3) mg/dL AST 28 (17-59) U/L ALT <6 (4-49) U/L Alkaline Phosphatase 55 (38-126) U/L Troponin I (0.000-0.034) ng/mL NT-Pro-B Natriuret Pep pg/mL Total Protein 6.7 (6.3-8.2) g/dL Albumin 4.3 (3.5-5.0) g/dL Coronavirus (PCR) (Not Detectd) 02/07/22 02/07/22 02/07/22 Range/Units 19:55 19:55 19:55 WBC (3.8-10.6) k/uL RBC (4.30-5.90) m/uL Hgb (13.0-17.5) gm/dL Hct (39.0-53.0) % MCV (80.0-100.0) fL MCH (25.0-35.0) pg MCHC (31.0-37.0) g/dL RDW (11.5-15.5) % Plt Count (150-450) k/uL MPV Neutrophils % % Lymphocytes % % Monocytes % % Eosinophils % % Basophils % % Neutrophils # (1.3-7.7) k/uL Lymphocytes # (1.0-4.8) k/uL Monocytes # (0-1.0) k/uL Eosinophils # (0-0.7) k/uL Basophils # (0-0.2) k/uL PT (9.0-12.0) sec INR (<1.2) APTT (22.0-30.0) sec D-Dimer (<0.60) mg/L FEU Sodium (137-145) mmol/L Potassium (3.5-5.1) mmol/L Chloride (98-107) mmol/L Carbon Dioxide (22-30) mmol/L Anion Gap mmol/L BUN (9-20) mg/dL Creatinine (0.66-1.25) mg/dL Est GFR (CKD-EPI)AfAm (>60 ml/min/1.73 sqM) Est GFR (CKD-EPI)NonAf (>60 ml/min/1.73 sqM) Glucose (74-99) mg/dL Plasma Lactic Acid Lux 1.0 (0.7-2.0) mmol/L Calcium (8.4-10.2) mg/dL Total Bilirubin (0.2-1.3) mg/dL AST (17-59) U/L ALT (4-49) U/L Alkaline Phosphatase (38-126) U/L Troponin I <0.012 (0.000-0.034) ng/mL NT-Pro-B Natriuret Pep 118 pg/mL Total Protein (6.3-8.2) g/dL Albumin (3.5-5.0) g/dL Coronavirus (PCR) (Not Detectd) 02/07/22 Range/Units 22:01 WBC (3.8-10.6) k/uL RBC (4.30-5.90) m/uL Hgb (13.0-17.5) gm/dL Hct (39.0-53.0) % MCV (80.0-100.0) fL MCH (25.0-35.0) pg MCHC (31.0-37.0) g/dL RDW (11.5-15.5) % Plt Count (150-450) k/uL MPV Neutrophils % % Lymphocytes % % Monocytes % % Eosinophils % % Basophils % % Neutrophils # (1.3-7.7) k/uL Lymphocytes # (1.0-4.8) k/uL Monocytes # (0-1.0) k/uL Eosinophils # (0-0.7) k/uL Basophils # (0-0.2) k/uL PT (9.0-12.0) sec INR (<1.2) APTT (22.0-30.0) sec D-Dimer (<0.60) mg/L FEU Sodium (137-145) mmol/L Potassium (3.5-5.1) mmol/L Chloride (98-107) mmol/L Carbon Dioxide (22-30) mmol/L Anion Gap mmol/L BUN (9-20) mg/dL Creatinine (0.66-1.25) mg/dL Est GFR (CKD-EPI)AfAm (>60 ml/min/1.73 sqM) Est GFR (CKD-EPI)NonAf (>60 ml/min/1.73 sqM) Glucose (74-99) mg/dL Plasma Lactic Acid Lux (0.7-2.0) mmol/L Calcium (8.4-10.2) mg/dL Total Bilirubin (0.2-1.3) mg/dL AST (17-59) U/L ALT (4-49) U/L Alkaline Phosphatase (38-126) U/L Troponin I (0.000-0.034) ng/mL NT-Pro-B Natriuret Pep pg/mL Total Protein (6.3-8.2) g/dL Albumin (3.5-5.0) g/dL Coronavirus (PCR) Not Detected (Not Detectd) - Radiology Data Chest x-ray: Chronic changes without acute pulmonary process. Disposition Clinical Impression: Dyspnea Disposition: HOME SELF-CARE Condition: Stable Instructions (If sedation given, give patient instructions): Dyspnea (ED) Additional Instructions: Return to the ER immediately should you develop increased shortness of breath, any significant pain, chest pain, a fever, vomiting, feeling dizzy or faint, or new or worsening symptoms. Follow up closely with your primary care provider. Is patient prescribed a controlled substance at d/c from ED?: No Referrals: Angeli Burton MD [Primary Care Provider] - 1-2 days Time of Disposition: 23:23
[2022-02-07 22:13] VITALS: RESP 16
[2022-02-07 23:29] VITALS: BP 119/70; PULSE 70
== END 2022-02-07 23:28 | disposition home or self-care (01) ==
LOC: EC 18:57
DX: R06.00 Dyspnea, unspecified (principal); Z20.822 Contact with and (suspected) exposure to COVID-19
CPT/HCPCS: 36415; 71046; 80053; 83605; 83880; 84484; 85025; 85379; 85610; 85730; 87635; 93005; 99285

== ENCOUNTER 2022-03-05 00:29 | Emergency (ER) | payer MEDICARE ==
[2022-03-05 01:08] VITALS: TEMP 98.6
[2022-03-05] MEDS ORDERED: ONDANSETRON 4 MG/2 ML VIAL IVP STA (01:15)
[2022-03-05 02:37] LABS: Basophils % (A) 0 %; Eosinophils % (A) 0 %; HCT 37.7 % (39.0-53.0); HGB 12.1 gm/dL (13.0-17.5); Lymphocytes # (A) 0.5 k/uL (1.0-4.8); Lymphocytes % (A) 5 %; MCH 31.4 pg (25.0-35.0); MCHC 32.2 g/dL (31.0-37.0); MCV 97.7 fL (80.0-100.0); Monocytes # (A) 0.3 k/uL (0-1.0); Monocytes % (A) 3 %; Neutrophils # (A) 9.3 k/uL (1.3-7.7); Neutrophils % (A) 91 %; Platelet Count 144 k/uL (150-450); RBC 3.85 m/uL (4.30-5.90); RDW 12.8 % (11.5-15.5); WBC 10.2 k/uL (3.8-10.6)
[2022-03-05 02:47] LABS: Calcium 8.8 mg/dL (8.4-10.2); Potassium 4.2 mmol/L (3.5-5.1); Total Bilirubin 0.5 mg/dL (0.2-1.3)
[2022-03-05 04:40] VITALS: BP 117/63; PULSE 72; RESP 15
[2022-03-05 04:52] LABS: Appearance,Urine Clear (Clear); Bilirubin,Urine Negative (Negative); Blood,Urine Negative (Negative); Color,Urine Yellow; Glucose,Urine (UA) Negative (Negative); Ketones,Urine 2+ (Negative); Leukocyte Esterase,Urine Negative (Negative); Nitrite,Urine Negative (Negative); PH, Urine 5.5 (5.0-8.0); Protein,Urine Trace (Negative); Specific Gravity,Urine 1.023 (1.001-1.035); Urobilinogen,Urine <2.0 mg/dL (<2.0)
--- NOTE | 2022-03-05 04:53 | ED ---
Nausea/Vomiting/Diarrhea HPI - General Chief complaint: Nausea/Vomiting/Diarrhea Stated complaint: Weakness, nausea Time Seen by Provider: 03/05/22 01:15 Source: patient Mode of arrival: EMS Limitations: no limitations - History of Present Illness MD complaint: nausea, vomiting, diarrhea Onset/Timin -: days(s) Description of Vomiting: watery, bilious Associated Abdominal Pain: No Radiation: none Severity scale (1-10): 0 Consistency: intermittent Improves with: none Worsens with: none Associated Symptoms: denies other symptoms - Related Data Home Medications Medication Instructions Recorded Confirmed Nature's Code Nutrition Vitamin 1 pack PO DAILY 10/21/16 01/25/19 Pack Simvastatin [Zocor] 10 mg PO HS 10/21/16 01/25/19 Aspirin [Adult Low Dose Aspirin EC] 81 mg PO DAILY 06/30/17 01/25/19 [place]-3 Fatty Acids/Fish Oil [Fish 1 cap PO DAILY 06/30/17 01/25/19 Oil 1,000 mg Softgel] Vit C/E/Zn/Coppr/Lutein/Zeaxan 1 cap PO DAILY 06/30/17 01/25/19 [Preservision Areds 2 Softgel] polyethylene glycoL 3350 [Miralax] 17 gm PO Q48H 06/30/17 01/25/19 Saw [place] 500 mg PO DAILY 01/25/19 01/25/19 Previous Rx's Medication Instructions Recorded Ondansetron Odt [Zofran Odt] 4 mg PO Q8HR PRN #10 tab 04/25/21 Ondansetron Odt [Zofran ODT] 4 mg PO Q8HR PRN #10 tab 03/05/22 Allergies Allergy/AdvReac Type Severity Reaction Status Date / Time No Known Allergies Allergy Verified 02/07/22 19:18 Review of Systems ROS Statement: Those systems with pertinent positive or pertinent negative responses have been documented in the HPI. ROS Other: All systems not noted in ROS Statement are negative. Constitutional: Denies: fever Respiratory: Denies: cough, dyspnea Cardiovascular: Denies: chest pain, palpitations Gastrointestinal: Reports: vomiting, diarrhea. Denies: abdominal pain, nausea, hematemesis, melena, hematochezia Genitourinary: Denies: dysuria, hematuria, testicular pain Musculoskeletal: Denies: back pain Skin: Denies: rash Neurological: Denies: headache, weakness Past Medical History Past Medical History: Cancer, Hyperlipidemia, Osteoarthritis (OA), Sleep Apnea/CPAP/BIPAP Additional Past Medical History / Comment(s): hx [id number], Skin CA. small hiatal hernia, diff swallowing, arthritis rt hand, Parkinson History of Any Multi-Drug Resistant Organisms: None Reported Past Surgical History: Cardiac Ablation, Orthopedic Surgery Additional Past Surgical History / Comment(s): skin cancer removed from forehead, .Lt ring finger amputation. arthroscopic surgery on left hip and left knee Past Anesthesia/Blood Transfusion Reactions: No Reported Reaction Past Psychological History: No Psychological Hx Reported Smoking Status: Never smoker Past Alcohol Use History: Rare Past Drug Use History: None Reported - Past Family History Mother Family Medical History: Cancer Additional Family Medical History / Comment(s): Breast CA. Father Family Medical History: Cancer Additional Family Medical History / Comment(s): Prostate CA with mets to liver and colon Sister(s) Family Medical History: Cancer Additional Family Medical History / Comment(s): Ovarian CA. General Exam Limitations: no limitations General appearance: alert, in no apparent distress Head exam: Present: atraumatic, normocephalic Eye exam: Present: normal appearance. Absent: scleral icterus, conjunctival injection ENT exam: Present: normal oropharynx Neck exam: Present: normal inspection Respiratory exam: Present: normal lung sounds bilaterally. Absent: respiratory distress, wheezes, rales, rhonchi, stridor Cardiovascular Exam: Present: regular rate, normal rhythm, normal heart sounds. Absent: systolic murmur, diastolic murmur, rubs, gallop GI/Abdominal exam: Present: soft. Absent: distended, tenderness, guarding, rebound, rigid, mass, pulsatile mass, hernia Extremities exam: Present: normal inspection, normal capillary refill. Absent: pedal edema, calf tenderness Back exam: Present: normal inspection. Absent: CVA tenderness (R), CVA tenderness (L) Neurological exam: Present: alert Skin exam: Present: warm, dry, intact, normal color. Absent: rash Course Vital Signs 03/05/22 03/05/22 03/05/22 00:57 02:15 04:39 Temperature 98.6 F Pulse Rate 62 69 72 Respiratory 16 20 15 Rate Blood Pressure 140/68 140/68 117/63 O2 Sat by Pulse 98 99 63 L Oximetry Medical Decision Making - Lab Data Result diagrams: 03/05/22 02:16 03/05/22 02:16 Lab Results 03/05/22 03/05/22 03/05/22 Range/Units 02:16 02:16 04:39 WBC 10.2 (3.8-10.6) k/uL RBC 3.85 L (4.30-5.90) m/uL Hgb 12.1 L (13.0-17.5) gm/dL Hct 37.7 L (39.0-53.0) % MCV 97.7 (80.0-100.0) fL MCH 31.4 (25.0-35.0) pg MCHC 32.2 (31.0-37.0) g/dL RDW 12.8 (11.5-15.5) % Plt Count 144 L (150-450) k/uL MPV 8.0 Neutrophils % 91 % Lymphocytes % 5 % Monocytes % 3 % Eosinophils % 0 % Basophils % 0 % Neutrophils # 9.3 H (1.3-7.7) k/uL Lymphocytes # 0.5 L (1.0-4.8) k/uL Monocytes # 0.3 (0-1.0) k/uL Eosinophils # 0.0 (0-0.7) k/uL Basophils # 0.0 (0-0.2) k/uL Sodium 134 L (137-145) mmol/L Potassium 4.2 (3.5-5.1) mmol/L Chloride 100 (98-107) mmol/L Carbon Dioxide 28 (22-30) mmol/L Anion Gap 6 mmol/L BUN 30 H (9-20) mg/dL Creatinine 1.19 (0.66-1.25) mg/dL Est GFR (CKD-EPI)AfAm 69 (>60 ml/min/1.73 sqM) Est GFR (CKD-EPI)NonAf 60 (>60 ml/min/1.73 sqM) Glucose 136 H (74-99) mg/dL Calcium 8.8 (8.4-10.2) mg/dL Total Bilirubin 0.5 (0.2-1.3) mg/dL AST 26 (17-59) U/L ALT 7 (4-49) U/L Alkaline Phosphatase 55 (38-126) U/L Total Protein 6.0 L (6.3-8.2) g/dL Albumin 4.0 (3.5-5.0) g/dL Amylase 57 (30-110) U/L Lipase 56 (23-300) U/L Urine Color Yellow Urine Appearance Clear (Clear) Urine pH 5.5 (5.0-8.0) Ur Specific [place] 1.023 (1.001-1.035) Urine Protein Trace H (Negative) Urine Glucose (UA) Negative (Negative) Urine Ketones 2+ H (Negative) Urine Blood Negative (Negative) Urine Nitrite Negative (Negative) Urine Bilirubin Negative (Negative) Urine Urobilinogen <2.0 (<2.0) mg/dL Ur Leukocyte Esterase Negative (Negative) Disposition Clinical Impression: Vomiting Disposition: HOME SELF-CARE Condition: Fair Instructions (If sedation given, give patient instructions): Acute Nausea and Vomiting (ED) Prescriptions: Ondansetron Odt [Zofran ODT] 4 mg PO Q8HR PRN #10 tab PRN Reason: Nausea Is patient prescribed a controlled substance at d/c from ED?: No Referrals: Angeli Burton MD [Primary Care Provider] - 1-2 days
== END 2022-03-05 05:46 | disposition home or self-care (01) ==
LOC: EC 00:29
DX: R11.10 Vomiting, unspecified (principal); E78.5 Hyperlipidemia, unspecified; M19.90 Unspecified osteoarthritis, unspecified site; Z72.89 Other problems related to lifestyle
CPT/HCPCS: 36415; 80053; 82150; 83690; 85025; 81003; 99284; 96374; J2405

== ENCOUNTER 2022-03-09 13:10 | Emergency (ER) | payer MEDICARE ==
[2022-03-09] MEDS ORDERED: SODIUM CHLORIDE 0.9% 500 ML 500 ML IV STA (16:15)
--- NOTE | 2022-03-09 16:22 | ED ---
General Adult HPI - General Source: patient, family, RN notes reviewed, old records reviewed Mode of arrival: ambulatory Limitations: no limitations - History of Present Illness -: days(s) (10) Associated Symptoms: nausea/vomiting, other (diarrhea) <Eugenio River - Last Filed: 03/09/22 19:02> <Justin Mccarty - Last Filed: 03/09/22 19:21> - General Chief complaint: Nausea/Vomiting/Diarrhea Stated complaint: Diarrhea/revisit Time Seen by Provider: 03/09/22 16:10 - History of Present Illness Initial comments: 76-year-old male presents to the emergency room with family member complaining of diarrhea for the past 10 days watery in nature. Also complaining of left lower quadrant pain. Patient states he was recently seen here for nausea vomiting and diarrhea and directed to follow up with his primary care doctor. He did see Dr. Burton's nurse practitioner today and referred him back to the emergency room. He also complains of vomiting for the past 6 months, watery in nature. Denies any fevers. They have not seen a music video director. Family member at bedside states that she's just wanting answers and does not know where else to turn. (Eugenio River) - Related Data Home Medications Medication Instructions Recorded Confirmed Simvastatin [Zocor] 10 mg PO HS 10/21/16 03/09/22 Aspirin [Adult Low Dose Aspirin EC] 81 mg PO HS 06/30/17 03/09/22 Carbidopa-Levodopa ER 50-200Mg 1 tab PO TID@0900,1300,1700 03/09/22 03/09/22 [Sinemet CR 50-200 mg] Ciprofloxacin HCl 500 mg PO BID 03/09/22 03/09/22 Donepezil HCl [Aricept] 10 mg PO HS 03/09/22 03/09/22 FLUoxetine HCL [PROzac] 20 mg PO HS 03/09/22 03/09/22 Temazepam [Restoril] 15 mg PO HS 03/09/22 03/09/22 hydrOXYzine HCL [Atarax] 50 mg PO HS 03/09/22 03/09/22 metroNIDAZOLE [Flagyl] 500 mg PO QID 03/09/22 03/09/22 rOPINIRole HCL [Requip] 0.25 mg PO HS 03/09/22 03/09/22 Allergies Allergy/AdvReac Type Severity Reaction Status Date / Time No Known Allergies Allergy Verified 03/09/22 17:27 Review of Systems ROS Other: All systems not noted in ROS Statement are negative. <Eugenio River - Last Filed: 03/09/22 19:02> ROS Other: All systems not noted in ROS Statement are negative. <Justin Mccarty - Last Filed: 03/09/22 19:21> ROS Statement: Those systems with pertinent positive or pertinent negative responses have been documented in the HPI. Past Medical History Past Medical History: Cancer, Hyperlipidemia, Osteoarthritis (OA), Sleep Apnea/CPAP/BIPAP Additional Past Medical History / Comment(s): hx Azlmq-Vfoxtxnaq-Vghuc, Skin CA. small hiatal hernia, diff swallowing, arthritis rt hand, Parkinson History of Any Multi-Drug Resistant Organisms: None Reported Past Surgical History: Cardiac Ablation, Orthopedic Surgery Additional Past Surgical History / Comment(s): skin cancer removed from forehead, .Lt ring finger amputation. arthroscopic surgery on left hip and left knee Past Anesthesia/Blood Transfusion Reactions: No Reported Reaction Past Psychological History: No Psychological Hx Reported Smoking Status: Never smoker Past Alcohol Use History: Rare Past Drug Use History: None Reported - Past Family History Mother Family Medical History: Cancer Additional Family Medical History / Comment(s): Breast CA. Father Family Medical History: Cancer Additional Family Medical History / Comment(s): Prostate CA with mets to liver and colon Sister(s) Family Medical History: Cancer Additional Family Medical History / Comment(s): Ovarian CA. <Eugenio River - Last Filed: 03/09/22 19:02> General Exam Limitations: no limitations General appearance: alert, in no apparent distress Head exam: Present: atraumatic Eye exam: Absent: scleral icterus, conjunctival injection Respiratory exam: Present: normal lung sounds bilaterally. Absent: respiratory distress, accessory muscle use Cardiovascular Exam: Present: regular rate GI/Abdominal exam: Present: soft, tenderness (Left lower quadrant), normal bowel sounds. Absent: distended, guarding, rebound, rigid Extremities exam: Present: normal capillary refill. Absent: pedal edema Back exam: Absent: tenderness, CVA tenderness (R), CVA tenderness (L) Neurological exam: Present: alert, oriented X3 Psychiatric exam: Present: normal affect, normal mood Skin exam: Present: warm, dry, normal color. Absent: cyanosis, diaphoretic, petechiae, pallor <Eugenio River - Last Filed: 03/09/22 19:02> Course Vital Signs 03/09/22 03/09/22 13:52 17:24 Temperature 97.7 F Pulse Rate 74 72 Respiratory 20 20 Rate Blood Pressure 122/70 138/61 O2 Sat by Pulse 97 98 Oximetry Medical Decision Making - Lab Data Result diagrams: 03/09/22 17:20 03/09/22 17:20 <Eugenio River - Last Filed: 03/09/22 19:02> - Lab Data Result diagrams: 03/09/22 17:20 03/09/22 17:20 <Justin Mccarty - Last Filed: 03/09/22 19:21> - Medical Decision Making Patient care is signed out to me by previous shift doctor of nursing, nurse practitioner, Dr. Eugenio River. Plan [place] to follow-up with pending computed tomography scan of the abdomen and pelvis. There was concern of diverticulitis given that patient has lower left quadrant pain. Laboratory evaluation is unremarkable. Computed tomography scan of the abdomen and pelvis shows prostatomegaly no evidence of bowel obstruction, diverticulitis or intra- abdominal infection. There does appear to be gaseous distention of the colon. There also does appear to be a fecaloma. Repeat abdominal exam performed at 7:20 PM shows non-impressive abdominal exam. Patient's well-appearing at bedside. Patient did mention to me that he takes MiraLAX daily as a constipation preventative measure he is told that his symptoms could be perhaps from taking MiraLAX daily. Patient advised to discontinue MiraLAX for the next couple days follow-up with primary care doctor for outpatient management of diarrhea and constipation. Skull is. Patient be discharged. (Justin Mccarty) - Lab Data Lab Results 03/09/22 03/09/22 03/09/22 Range/Units 17:20 17:20 17:20 WBC 6.5 (3.8-10.6) k/uL RBC 4.21 L (4.30-5.90) m/uL Hgb 13.3 (13.0-17.5) gm/dL Hct 41.6 (39.0-53.0) % MCV 99.0 (80.0-100.0) fL MCH 31.7 (25.0-35.0) pg MCHC 32.0 (31.0-37.0) g/dL RDW 13.5 (11.5-15.5) % Plt Count 174 (150-450) k/uL MPV 8.4 Neutrophils % 76 % Lymphocytes % 14 % Monocytes % 7 % Eosinophils % 1 % Basophils % 0 % Neutrophils # 5.0 (1.3-7.7) k/uL Lymphocytes # 0.9 L (1.0-4.8) k/uL Monocytes # 0.4 (0-1.0) k/uL Eosinophils # 0.0 (0-0.7) k/uL Basophils # 0.0 (0-0.2) k/uL Sodium 138 (137-145) mmol/L Potassium 5.1 (3.5-5.1) mmol/L Chloride 103 (98-107) mmol/L Carbon Dioxide 29 (22-30) mmol/L Anion Gap 6 mmol/L BUN 25 H (9-20) mg/dL Creatinine 1.16 (0.66-1.25) mg/dL Est GFR (CKD-EPI)AfAm 71 (>60 ml/min/1.73 sqM) Est GFR (CKD-EPI)NonAf 62 (>60 ml/min/1.73 sqM) Glucose 110 H (74-99) mg/dL Plasma Lactic Acid Lux 1.3 (0.7-2.0) mmol/L Calcium 9.3 (8.4-10.2) mg/dL Total Bilirubin 0.7 (0.2-1.3) mg/dL AST 54 (17-59) U/L ALT 6 (4-49) U/L Alkaline Phosphatase 50 (38-126) U/L Total Protein 6.5 (6.3-8.2) g/dL Albumin 4.3 (3.5-5.0) g/dL Amylase 60 (30-110) U/L Lipase 55 (23-300) U/L Disposition <Eugenio River - Last Filed: 03/09/22 19:02> Is patient prescribed a controlled substance at d/c from ED?: No <Justin Mccarty - Last Filed: 03/09/22 19:21> Clinical Impression: Diarrhea Disposition: HOME SELF-CARE Condition: Fair Instructions (If sedation given, give patient instructions): Acute Diarrhea (ED) Referrals: Angeli Burton MD [Primary Care Provider] - 1-2 days
[2022-03-09 17:27] LABS: Basophils % (A) 0 %; Eosinophils % (A) 1 %; HCT 41.6 % (39.0-53.0); HGB 13.3 gm/dL (13.0-17.5); Lymphocytes # (A) 0.9 k/uL (1.0-4.8); Lymphocytes % (A) 14 %; MCH 31.7 pg (25.0-35.0); Mean Platelet Volume 8.4; Monocytes # (A) 0.4 k/uL (0-1.0); Monocytes % (A) 7 %; Neutrophils % (A) 76 %; Platelet Count 174 k/uL (150-450); RBC 4.21 m/uL (4.30-5.90); RDW 13.5 % (11.5-15.5); WBC 6.5 k/uL (3.8-10.6)
[2022-03-09 17:41] LABS: Albumin 4.3 g/dL (3.5-5.0); Calcium 9.3 mg/dL (8.4-10.2); Total Bilirubin 0.7 mg/dL (0.2-1.3); Total Protein 6.5 g/dL (6.3-8.2)
[2022-03-09 17:42] LABS: Potassium 5.1 mmol/L (3.5-5.1)
--- NOTE | 2022-03-09 19:06 | CT ---
EXAMINATION TYPE: CT abdomen pelvis w con CT DLP: 616.6 mGycm, Automated exposure control for dose reduction was used. DATE OF EXAM: 03/09/2022 6:47 PM COMPARISON: None. CLINICAL INDICATION:Male, 76 years old with history of LLQ pain TECHNIQUE: Standard CT of the abdomen and pelvis following the administration of 100 cc of Isovue 3 00 IV contrast material. Coronal and sagittal reformats were performed. FINDINGS: LOWER CHEST: Unremarkable ABDOMEN LIVER: Unremarkable GALLBLADDER AND BILE DUCTS: Unremarkable. PANCREAS: Unremarkable. SPLEEN: Unremarkable. ADRENAL GLANDS: Unremarkable. KIDNEYS AND URETERS: Peripelvic renal cysts are seen bilaterally. No evidence of hydronephrosis or re nal calculus. The ureters are unremarkable. PELVIS BLADDER: Unremarkable REPRODUCTIVE: Prostate is enlarged in size measuring 5.7 cm in transverse dimension. ABDOMEN & PELVIS STOMACH AND BOWEL: No evidence of bowel obstruction. Limited evaluation of the abdomen secondary to paucity of intra-abdominal fat as well as blooming fro m multiple loops of bowel containing presumably ingested contents with high density. There is gaseous distention of the colon which appears right redundant in the sigmoid colon portion. PERITONEUM: No evidence of pneumoperitoneum or free fluid. VASCULATURE: No evidence of aortic aneurysm. Atherosclerosis of the arterial vasculature. MUSCULOSKELETAL: No acute osseous abnormalities. LYMPH NODES: No gross evidence for lymphadenopathy. SOFT TISSUE/ABDOMINAL WALL: Unremarkable IMPRESSION: 1. No evidence for acute intra-abdominal process. 2. There is gaseous distention of the colon with fecaloma in the rectum. 3. Prostatomegaly correlate with serum PSA.
[2022-03-09 19:39] VITALS: BP 136/69; PULSE 67; RESP 16; TEMP 98.2
== END 2022-03-09 19:38 | disposition home or self-care (01) ==
LOC: EC 13:10
DX: R19.7 Diarrhea, unspecified (principal); R10.32 Left lower quadrant pain; E78.5 Hyperlipidemia, unspecified; M19.90 Unspecified osteoarthritis, unspecified site; G20 Parkinson's disease; Z79.82 Long term (current) use of aspirin; Z79.899 Other long term (current) drug therapy
CPT/HCPCS: 36415; 80053; 82150; 83605; 83690; 85025; 74177; 99284; 96360; Q9967

== ENCOUNTER 2022-12-25 22:20 | Emergency (ER) | payer MEDICARE ==
[2022-12-25 22:38] VITALS: BP 153/67; PULSE 53; RESP 18; TEMP 97.8
[2022-12-25] MEDS ORDERED: ONDANSETRON 4 MG/2 ML VIAL IVP STA (22:48)
[2022-12-25] MEDS ORDERED: SODIUM CHLORIDE 0.9% 1,000 ML IV STA ×2 (22:48→23:31)
[2022-12-25 23:17] LABS: Basophils % (A) 0 %; Eosinophils # (A) 0.1 k/uL (0-0.7); Eosinophils % (A) 1 %; HCT 42.3 % (39.0-53.0); HGB 13.8 gm/dL (13.0-17.5); Lymphocytes # (A) 0.8 k/uL (1.0-4.8); Lymphocytes % (A) 9 %; MCH 31.6 pg (25.0-35.0); MCHC 32.6 g/dL (31.0-37.0); MCV 96.9 fL (80.0-100.0); Mean Platelet Volume 7.6; Monocytes # (A) 0.4 k/uL (0-1.0); Monocytes % (A) 4 %; Neutrophils # (A) 7.6 k/uL (1.3-7.7); Neutrophils % (A) 84 %; Platelet Count 189 k/uL (150-450); RBC 4.37 m/uL (4.30-5.90); RDW 12.6 % (11.5-15.5)
[2022-12-25 23:29] LABS: Albumin 4.5 g/dL (3.5-5.0); Calcium 9.5 mg/dL (8.4-10.2); Potassium 4.4 mmol/L (3.5-5.1); Total Bilirubin 0.4 mg/dL (0.2-1.3); Total Protein 6.8 g/dL (6.3-8.2)
--- NOTE | 2022-12-25 23:46 | ED ---
Nausea/Vomiting/Diarrhea HPI - General Chief complaint: Nausea/Vomiting/Diarrhea Stated complaint: vomiting blood Time Seen by Provider: 12/25/22 22:48 Source: patient, family (Spouse), RN notes reviewed Mode of arrival: wheelchair Limitations: no limitations - History of Present Illness Initial comments: Patient is a 77 year old male presenting to the emergency room with acute onset of nausea and vomiting which began approximately 4 hours before arrival to the emergency room. He believed that there was blood in his vomit however he has a bucket containing some of this emesis which she believes is bloody in nature and the emesis is discolored secondary to food intake with no blood present. Hair focused reports that they ate supper around 5:30 this evening and he took his medications approximately half an hour before his nausea and vomiting began with codeine as he typically does. She does report that he has been taking fluoxetine as needed around lunchtime and states that his primary care provider advised him he could do so despite our records indicating that he is post be taking it daily at bedtime. He has been seeing a new neurologist in regards to his Parkinson's disease which is slowly worsening and has been placed on a new medication however they are unsure of the new medication name he has been on this medication for approximately 4 weeks. Spouse reports that she this female as a patient without any episodes of nausea or vomiting since eating the food herself. He reports generalized weakness as an associated symptoms but denies any other symptoms including any chest pain, shortness of breath, abdominal pain, diarrhea, dysuria, urinary hematuria, new focal neurological deficits, fevers or chills. In addition to his Parkinson's disease he has a past medical history significant for WPW, Hyperlipidemia, skin cancer, arthritis, and sleep apnea. - Related Data Home Medications Medication Instructions Recorded Confirmed Simvastatin [Zocor] 10 mg PO HS 10/21/16 03/09/22 Aspirin [Adult Low Dose Aspirin EC] 81 mg PO HS 06/30/17 03/09/22 Carbidopa-Levodopa ER 50-200Mg 1 tab PO TID@0900,1300,1700 03/09/22 03/09/22 [Sinemet CR 50-200 mg] Ciprofloxacin HCl 500 mg PO BID 03/09/22 03/09/22 Donepezil HCl [Aricept] 10 mg PO HS 03/09/22 03/09/22 FLUoxetine HCL [PROzac] 20 mg PO HS 03/09/22 03/09/22 Temazepam [Restoril] 15 mg PO HS 03/09/22 03/09/22 hydrOXYzine HCL [Atarax] 50 mg PO HS 03/09/22 03/09/22 metroNIDAZOLE [Flagyl] 500 mg PO QID 03/09/22 03/09/22 rOPINIRole HCL [Requip] 0.25 mg PO HS 03/09/22 03/09/22 Allergies Allergy/AdvReac Type Severity Reaction Status Date / Time No Known Allergies Allergy Verified 12/25/22 22:34 Review of Systems ROS Statement: Those systems with pertinent positive or pertinent negative responses have been documented in the HPI. ROS Other: All systems not noted in ROS Statement are negative. Past Medical History Past Medical History: Cancer, Hyperlipidemia, Musculoskeletal Disorder, Osteoarthritis (OA), Sleep Apnea/CPAP/BIPAP Additional Past Medical History / Comment(s): hx Pjnfp-[id number]-[id number], Skin CA. small hiatal hernia, diff swallowing, arthritis rt hand, Parkinson History of Any Multi-Drug Resistant Organisms: None Reported Past Surgical History: Cardiac Ablation, Orthopedic Surgery Additional Past Surgical History / Comment(s): skin cancer removed from forehead, .Lt ring finger amputation. arthroscopic surgery on left hip and left knee Past Anesthesia/Blood Transfusion Reactions: No Reported Reaction Past Psychological History: No Psychological Hx Reported Smoking Status: Never smoker Past Alcohol Use History: Rare Past Drug Use History: None Reported - Past Family History Mother Family Medical History: Cancer Additional Family Medical History / Comment(s): Breast CA. Father Family Medical History: Cancer Additional Family Medical History / Comment(s): Prostate CA with mets to liver and colon Sister(s) Family Medical History: Cancer Additional Family Medical History / Comment(s): Ovarian CA. General Exam - General Exam Comments Initial Comments: GENERAL: Appears chronically ill. HEENT: Normocephalic, atraumatic. Pupils equal, round, reactive to light. Moist mucous membranes. LUNGS: No respiratory distress. Clear to auscultation, no adventitious sounds, no use of accessory muscles. HEART: Regular rate and rhythm without murmur, rub, or gallop. ABDOMEN: Normal bowel sounds. Soft, non-tender, non-distended. BACK: Normal inspection. EXTREMITIES: No edema. Stiff extremities with tremor bilateral upper extremities noted NEUROLOGIC: Alert & oriented x 3. Tremor as above. Slow verbal responses. Poor eye contact. PSYCHIATRIC: Flat affect and behavior. DERMATOLOGIC: Skin intact, without rashes or lesions noted. Limitations: no limitations Course Vital Signs 12/25/22 22:34 Temperature 97.8 F Pulse Rate 53 L Respiratory 18 Rate Blood Pressure 153/67 O2 Sat by Pulse 98 Oximetry Medical Decision Making - Medical Decision Making Was pt. sent in by a medical professional or institution (, [facility], DIAL MAKER, urgent care, hospital, or fci...) When possible be specific @ -No Did you speak to anyone other than the patient for history (EMS, parent, family, police, friend...)? What history was obtained from this source @ -Spouse Did you review nursing and triage notes (agree or disagree)? Why? @ -I reviewed and agree with nursing and triage notes except no blood in vomit. Were old charts reviewed (outside hosp., previous admission, EMS record, old EKG, old radiological studies, urgent care reports/EKG's, fci records)? Report findings @ -Yes, I reviewed MRI report from November 2022 and most recent laboratory studies from August 2022 Differential Diagnosis (chest pain, altered mental status, abdominal pain women, abdominal pain men, vaginal bleeding, weakness, fever, dyspnea, syncope, headache, dizziness, GI bleed, back pain, seizure, CVA, palpatations, mental health, musculoskeletal)? @ -Differential Abdominal Pain Men: Appendicitis, cholecystitis, diverticulosis, ischemic bowel, pancreatitis, hepatitis, UTI, gastroenteritis, incarcerated hernia, bowel obstruction, con stipation, viral illness, medication side effect, this is not meant to be an all-inclusive list EKG interpreted by me (3pts min.). @ -None done X-rays interpreted by me (1pt min.). @ -None done CT interpreted by me (1pt min.). @ -None done U/S interpreted by me (1pt. min.). @ -None done What testing was considered but not performed or refused? (CT, X-rays, U/S, labs)? Why? @ -None What meds were considered but not given or refused? Why? @ -None Did you discuss the management of the patient with other professionals (professionals i.e. , PA, DIAL MAKER, lab, RT, psych nurse, marriage and family social worker, building rental manager, teacher, fire information officer, family independence case manager)? Give summary @ -No Was smoking cessation discussed for >3mins.? @ -No Was critical care preformed (if so, how long)? @ -No Were there social determinants of health that impacted care today? How? (Homel essness, low income, unemployed, alcoholism, drug addiction, transportation, low edu. Level, literacy, decrease access to med. care, group home, rehab)? @ -No Was there de-escalation of care discussed even if they declined (Discuss DNR or withdrawal of care, Hospice)? DNR status @ -No What co-morbidities impacted this encounter? (DM, HTN, Smoking, COPD, CAD, Cancer, CVA, ARF, Chemo, Hep., AIDS, mental health diagnosis, sleep apnea, morbid obesity)? @ -None Was patient admitted / discharged? Hospital course, mention meds given and route, prescriptions, significant lab abnormalities, going to OR and other pertinent info. @ -77 year old male presenting to the emergency room with acute onset of nausea and vomiting which began approximately 4 hours before arrival to the emergency room. He believed that there was blood in his vomit however emesis is discolored secondary to food intake and no blood present. No other symptoms with the exception of generalized weakness. Patient does note that he is taking his fluoxetine as needed and did not take a dose today. Will obtain laboratory studies of CBC, CMP, amylase, lipase and viral testing for COVID, influenza and RSV. In the absence of abdominal pain and normal abdominal exam no indication for diagnostic imaging. Will give IV fluids and Zofran. Laboratory study results include CBC normal except lymphocytes low at 0.8 CMP with elevated CO2 levels 32 anion gap normal BUN elevated 26 creatinine high n ormal at 1.2 glucose elevated 176 patient not diabetic AST and ALTs and alkaline phosphate normal potassium and sodium levels normal amylase and lipase normal viral swabs for COVID, RSV and influenza negative. High concern for worsening of Parkinson's causing weakness. Will give additional 1 L fluid bolus and monitor for further episodes of vomiting. Tolerated IV hydration well. No further episodes of emesis. No indication for further laboratory studies or diagnostic imaging at this time. Above findings discussed at length with patient and spouse. Questions and concerns answered. Advised to maintain good hydration and utilize Zofran starter pack as needed for nausea. Advised follow-up with primary care provider and neurologist. Questions return parameters to the emergency room discussed. Will discharge home in stable condition with symptomatic management of nausea and vomiting with Zofran starter pack along with good hydration advising follow- up with primary care provider and neurologist as scheduled. Undiagnosed new problem with uncertain prognosis? @ -No Drug Therapy requiring intensive monitoring for toxicity (Heparin, Nitro, Insulin, Cardizem)? @ -No Were any procedures done? @ -No Diagnosis/symptom? @ -Nausea and vomiting Acute, or Chronic, or Acute on Chronic? @ -Acute Uncomplicated (without systemic symptoms) or Complicated (systemic symptoms)? @ -Uncomplicated Side effects of treatment? @ -No Exacerbation, Progression, or Severe Exacerbation? @ -No Poses a threat to life or bodily function? How? (Chest pain, [place], [place], pneumonia, PE, COPD, DKA, ARF, appy, cholecystitis, CVA, Diverticulitis, Homicidal, Suicidal, threat to staff... and all critical care pts) @ -No Case discussed with Dr. Mccarty - Lab Data Result diagrams: 12/25/22 22:52 12/25/22 22:52 Lab Results 12/25/22 12/25/22 12/25/22 Range/Units 22:52 22:52 22:52 WBC 9.0 (3.8-10.6) k/uL RBC 4.37 (4.30-5.90) m/uL Hgb 13.8 (13.0-17.5) gm/dL Hct 42.3 (39.0-53.0) % MCV 96.9 (80.0-100.0) fL MCH 31.6 (25.0-35.0) pg MCHC 32.6 (31.0-37.0) g/dL RDW 12.6 (11.5-15.5) % Plt Count 189 (150-450) k/uL MPV 7.6 Neutrophils % 84 % Lymphocytes % 9 % Monocytes % 4 % Eosinophils % 1 % Basophils % 0 % Neutrophils # 7.6 (1.3-7.7) k/uL Lymphocytes # 0.8 L (1.0-4.8) k/uL Monocytes # 0.4 (0-1.0) k/uL Eosinophils # 0.1 (0-0.7) k/uL Basophils # 0.0 (0-0.2) k/uL Sodium 139 (137-145) mmol/L Potassium 4.4 (3.5-5.1) mmol/L Chloride 98 (98-107) mmol/L Carbon Dioxide 32 H (22-30) mmol/L Anion Gap 9 mmol/L BUN 26 H (9-20) mg/dL Creatinine 1.23 (0.66-1.25) mg/dL Est GFR (CKD-EPI)AfAm 66 (>60 ml/min/1.73 sqM) Est GFR (CKD-EPI)NonAf 57 (>60 ml/min/1.73 sqM) Glucose 176 H (74-99) mg/dL Calcium 9.5 (8.4-10.2) mg/dL Total Bilirubin 0.4 (0.2-1.3) mg/dL AST 28 (17-59) U/L ALT 12 (4-49) U/L Alkaline Phosphatase 73 (38-126) U/L Total Protein 6.8 (6.3-8.2) g/dL Albumin 4.5 (3.5-5.0) g/dL Amylase 72 (30-110) U/L Lipase 299 (23-300) U/L Influenza Type A (PCR) Not Detected (Not Detectd) Influenza Type B (PCR) Not Detected (Not Detectd) RSV (PCR) Not Detected (Not Detectd) SARS-CoV-2 (PCR) Not Detected (Not Detectd) Disposition Clinical Impression: Nausea and vomiting Disposition: HOME SELF-CARE Condition: Stable Instructions (If sedation given, give patient instructions): Acute Nausea and Vomiting (ED) Additional Instructions: Utilize Zofran starter pack for nausea and vomiting as needed. Stay well hydrated Avoid vitamin and mineral administration during nausea and vomiting time. Please follow-up with your primary care provider and neurologist per their recommendations.. Please return to the Emergency Department if symptoms worsen or any other concerns. Is patient prescribed a controlled substance at d/c from ED?: No Referrals: Angeli Burton MD [Primary Care Provider] - 1-2 days Time of Disposition: 01:12
[2022-12-26] MEDS ORDERED: ONDANSETRON 4 MG ODT STARTER PACK 2 TAB BTL PO STA (01:12)
== END 2022-12-26 01:56 | disposition home or self-care (01) ==
LOC: EC 22:20
DX: R11.2 Nausea with vomiting, unspecified (principal); E78.5 Hyperlipidemia, unspecified; G47.30 Sleep apnea, unspecified; Z79.82 Long term (current) use of aspirin; Z79.899 Other long term (current) drug therapy; Z20.822 Contact with and (suspected) exposure to COVID-19
CPT/HCPCS: 80053; 82150; 83690; 85025; 87636; 99284; 96374; 96361 ×3; J2405; S0119

== ENCOUNTER → 2023-07-21 | Outpatient (CLI) | payer MEDICARE ==
--- NOTE | 2023-07-21 12:42 | FL ---
Modified barium swallow. HISTORY: Dysphagia. Modified barium swallow was performed with the department of speech pathology. The patient was prese nted with various consistencies of barium. There is evidence of deep transient penetration. There is also pooling of contrast within the vallecu [place] and piriform sinuses. Dysmotility is noted of the epiglottis. Full report is to follow from the de partment of speech pathology. Impression: No evidence for aspiration.
== END | disposition home or self-care (01) ==
LOC: RADFLMAIN 11:01
PROVIDERS: ATTEND Psychiatry & Neurology Neurology
DX: G20.C Parkinsonism, unspecified (principal); R13.10 Dysphagia, unspecified
CPT/HCPCS: 74230

== ENCOUNTER 2023-09-07 22:29 | Observation (INO) | payer MEDICARE ==
[2023-09-07] MEDS ORDERED: SODIUM CHLORIDE 0.9% 1,000 ML IV STA (22:50)
[2023-09-07] MEDS ORDERED: ONDANSETRON 4 MG/2 ML VIAL IVP STA (22:50)
[2023-09-08 00:09] LABS: Basophils % (A) 0 %; Eosinophils # (A) 0.1 k/uL (0-0.7); Eosinophils % (A) 1 %; HCT 39.7 % (39.0-53.0); HGB 13.2 gm/dL (13.0-17.5); Lymphocytes # (A) 0.9 k/uL (1.0-4.8); Lymphocytes % (A) 11 %; MCH 31.6 pg (25.0-35.0); MCHC 33.1 g/dL (31.0-37.0); MCV 95.4 fL (80.0-100.0); Mean Platelet Volume 7.9; Monocytes # (A) 0.4 k/uL (0-1.0); Monocytes % (A) 4 %; Neutrophils # (A) 6.5 k/uL (1.3-7.7); Neutrophils % (A) 82 %; Platelet Count 223 k/uL (150-450); RBC 4.17 m/uL (4.30-5.90); RDW 13.1 % (11.5-15.5)
[2023-09-08 00:14] LABS: ALT 6 U/L (4-49); AST 26 U/L (17-59); African American GFR (CKD) 76 (>60 ml/min/1.73 sqM); Albumin 3.9 g/dL (3.5-5.0); Alkaline Phosphatase 74 U/L (38-126); Anion Gap 10 mmol/L; Blood Urea Nitrogen 28 mg/dL (9-20); Calcium 9.4 mg/dL (8.4-10.2); Carbon Dioxide 26 mmol/L (22-30); Chloride 99 mmol/L (98-107); Glucose 128 mg/dL (74-99); Non-African American GFR(CKD) 66 (>60 ml/min/1.73 sqM); Potassium 4.5 mmol/L (3.5-5.1); Sodium 135 mmol/L (137-145); Total Bilirubin 0.7 mg/dL (0.2-1.3); Total Protein 6.3 g/dL (6.3-8.2)
[2023-09-08 00:15] LABS: INR 0.9 (<1.2); Partial Thromboplastin Time 23.7 sec (22.0-30.0); Prothrombin Time 10.4 sec (10.0-12.5)
--- NOTE | 2023-09-08 00:22 | ED ---
General Adult HPI - General Chief complaint: Shortness of Breath Stated complaint: UTI Time Seen by Provider: 09/07/23 22:41 Source: patient, EMS, RN notes reviewed, old records reviewed Mode of arrival: EMS Limitations: no limitations - History of Present Illness Initial comments: Patient is a 78-year-old male who presents emergency Department complaining of generalized weakness and when he describes his shortness of breath for 2 weeks. Does have a history of sleep apnea, Parkinson's disease. Also states that he occasionally feels nauseous. No known sick contacts. Concerned for possible UTI per family and EMS. Patient has no other acute complaints at this time. Denies diarrhea. Denies emesis. Denies chest pain. Denies current shortness of breath. Denies any lower extremity edema. His chronic weakness of the lower extremity secondary to Parkinson's and uses a walker at home. Presents for further evaluation. Lives with his at home. - Related Data Home Medications Medication Instructions Recorded Confirmed Simvastatin [Zocor] 10 mg PO HS 10/21/16 03/09/22 Aspirin [Adult Low Dose Aspirin EC] 81 mg PO HS 06/30/17 03/09/22 Carbidopa-Levodopa ER 50-200Mg 1 tab PO TID@0900,1300,1700 03/09/22 03/09/22 [Sinemet CR 50-200 mg] Ciprofloxacin HCl 500 mg PO BID 03/09/22 03/09/22 Donepezil HCl [Aricept] 10 mg PO HS 03/09/22 03/09/22 FLUoxetine HCL [PROzac] 20 mg PO HS 03/09/22 03/09/22 Temazepam [Restoril] 15 mg PO HS 03/09/22 03/09/22 hydrOXYzine HCL [Atarax] 50 mg PO HS 03/09/22 03/09/22 metroNIDAZOLE [Flagyl] 500 mg PO QID 03/09/22 03/09/22 rOPINIRole HCL [Requip] 0.25 mg PO HS 03/09/22 03/09/22 Allergies Allergy/AdvReac Type Severity Reaction Status Date / Time No Known Allergies Allergy Verified 09/07/23 22:34 Review of Systems ROS Statement: Those systems with pertinent positive or pertinent negative responses have been documented in the HPI. Review of Systems: CONST: Denies fever EYES: Denies blurry vision ENT: Denies nasal congestion C/V: Denies Chest pain RESP: Denies shortness of breath GI: Denies abdominal pain : Denies dysuria SKIN: Denies rash. MSK: Denies joint pain. NEURO: Denies headache ROS Other: All systems not noted in ROS Statement are negative. Past Medical History Past Medical History: Cancer, Hyperlipidemia, Musculoskeletal Disorder, Osteoarthritis (OA), Sleep Apnea/CPAP/BIPAP Additional Past Medical History / Comment(s): hx [id number], Skin CA. small hiatal hernia, diff swallowing, arthritis rt hand, Parkinson History of Any Multi-Drug Resistant Organisms: None Reported Past Surgical History: Cardiac Ablation, Orthopedic Surgery Additional Past Surgical History / Comment(s): skin cancer removed from forehead, .Lt ring finger amputation. arthroscopic surgery on left hip and left knee Past Anesthesia/Blood Transfusion Reactions: No Reported Reaction Past Psychological History: No Psychological Hx Reported Smoking Status: Never smoker Past Alcohol Use History: Rare Past Drug Use History: None Reported - Past Family History Mother Family Medical History: Cancer Additional Family Medical History / Comment(s): Breast CA. Father Family Medical History: Cancer Additional Family Medical History / Comment(s): Prostate CA with mets to liver and colon Sister(s) Family Medical History: Cancer Additional Family Medical History / Comment(s): Ovarian CA. General Exam - General Exam Comments Initial Comments: General: Appears in no acute distress. HEAD: Normal with no signs of head trauma. EYES: PERRLA, EOMI, conjunctiva normal, no discharge. ENT: Hearing grossly intact, normal oropharynx. Dry mucous membranes. RESPIRATORY: Clear breath sounds bilaterally. No wheezes, rales, or rhonchi. C/V: Regular rate and rhythm. S1 and S2 auscultated, no edema, peripheral pulses 2+ and intact throughout ABD: Abd is soft, nontender, nondistended EXT: Normal range of motion, no obvious deformity SKIN: No rashes or lesions observed on exposed skin. NEURO: Alert and oriented 4. Chronic lower extremity weakness. No focal deficits appreciated. Limitations: no limitations Course Vital Signs 09/07/23 09/08/23 09/08/23 22:31 01:38 01:48 Temperature 98.0 F Pulse Rate 72 69 63 Respiratory 20 Rate Blood Pressure 161/80 O2 Sat by Pulse 96 Oximetry Medical Decision Making - Medical Decision Making Was pt. sent in by a medical professional or institution (, [facility], [facility], urgent care, hospital, or [facility]...) When possible be specific @ -No Did you speak to anyone other than the patient for history (EMS, parent, family, police, friend...)? What history was obtained from this source @ -No Did you review nursing and triage notes (agree or disagree)? Why? @ -I reviewed and agree with nursing and triage notes Were old charts reviewed (outside hosp., previous admission, EMS record, old EKG, old radiological studies, urgent care reports/EKG's, [facility] records)? Report findings @ -Old charts reviewed Differential Diagnosis (chest pain, altered mental status, abdominal pain women, abdominal pain men, vaginal bleeding, weakness, fever, dyspnea, syncope, headache, dizziness, GI bleed, back pain, seizure, CVA, palpatations, mental health, musculoskeletal)? @ -Differential Weakness: Hypoglycemia, shock, sepsis, hyponatremia, anemia, infection, [place], ETOH, adverse medicine reaction, overdose, stroke, this is not meant to be an all-inclusive list. EKG interpreted by me (3pts min.). @ -As above X-rays interpreted by me (1pt min.). @ -Chest x-ray reveals no obvious acute cardio pulmonary process. CT interpreted by me (1pt min.). @ -None done U/S interpreted by me (1pt. min.). @ -None done What testing was considered but not performed or refused? (CT, X-rays, U/S, labs)? Why? @ -None What meds were considered but not given or refused? Why? @ -None Did you discuss the management of the patient with other professionals (mayco velasco i.e. , [facility], [facility], lab, RT, psych nurse, professor of social work, product engineer, teacher, ship officer, family service caseworker)? Give summary @ -Discussed with Dr. Levy who accepted the patient. Was smoking cessation discussed for >3mins.? @ -No Was critical care preformed (if so, how long)? @ -No Were there social determinants of health that impacted care today? How? (Homelessness, low income, unemployed, alcoholism, drug addiction, transportation, low edu. Level, literacy, decrease access to med. care, [place] [facility], rehab)? @ -No Was there de-escalation of care discussed even if they declined (Discuss DNR or withdrawal of care, Hospice)? DNR status @ -No What co-morbidities impacted this encounter? (DM, HTN, Smoking, COPD, CAD, Cancer, CVA, ARF, Chemo, Hep., AIDS, mental health diagnosis, sleep apnea, morbid obesity)? @ -None Was patient admitted / discharged? Hospital course, mention meds given and route, prescriptions, significant lab abnormalities, going to OR and other pertinent info. @ -Based on the patient's presentation and physical exam, I'm concerned for possible infectious process for his current weakness. We'll obtain basic labs. Does appear mildly dehydrated. He will receive 1 L fluid bolus. We will obtain a chest x-ray. He was in agreement with this plan. Vital signs are within acceptable limits. EKG showed no signs of acute ischemia.Chest x-ray unremarkable. Patient's laboratory studies also unremarkable. On reevaluation, patient adamantly will desat to 90-92% on room air. Patient's family is not bedside. We'll discuss at length the patient's workup. There is possible his symptoms are all secondary to worsening Parkinson's diseases as they did recently have some medication changes. However due to the weakness, as well as patient's age we will admit the patient. Due to the intermittent dyspnea but he is experiencing, we will trial him on a breathing treatment. I will order an echo. Patient in agreement this plan. Family in agreement this plan. I spoke with the admitting physician, Dr. Levy who accepted the patient. Undiagnosed new problem with uncertain prognosis? @ -No Drug Therapy requiring intensive monitoring for toxicity (Heparin, Nitro, Insuli n, Cardizem)? @ -No Were any procedures done? @ -No Diagnosis/symptom? @ -Weakness Acute, or Chronic, or Acute on Chronic? @ -Acute Uncomplicated (without systemic symptoms) or Complicated (systemic symptoms)? @ -Complicated Side effects of treatment? @ -none Exacerbation, Progression, or Severe Exacerbation] @ -no Poses a threat to life or bodily function? @ -Possibly - Lab Data Result diagrams: 09/07/23 23:24 09/07/23 23:24 Lab Results 09/07/23 09/07/23 09/07/23 Range/Units 23:24 23:24 23:24 WBC 8.0 (3.8-10.6) k/uL RBC 4.17 L (4.30-5.90) m/uL Hgb 13.2 (13.0-17.5) gm/dL Hct 39.7 (39.0-53.0) % MCV 95.4 (80.0-100.0) fL MCH 31.6 (25.0-35.0) pg MCHC 33.1 (31.0-37.0) g/dL RDW 13.1 (11.5-15.5) % Plt Count 223 (150-450) k/uL MPV 7.9 Neutrophils % 82 % Lymphocytes % 11 % Monocytes % 4 % Eosinophils % 1 % Basophils % 0 % Neutrophils # 6.5 (1.3-7.7) k/uL Lymphocytes # 0.9 L (1.0-4.8) k/uL Monocytes # 0.4 (0-1.0) k/uL Eosinophils # 0.1 (0-0.7) k/uL Basophils # 0.0 (0-0.2) k/uL PT 10.4 (10.0-12.5) sec INR 0.9 (<1.2) APTT 23.7 (22.0-30.0) sec Sodium (137-145) mmol/L Potassium (3.5-5.1) mmol/L Chloride (98-107) mmol/L Carbon Dioxide (22-30) mmol/L Anion Gap mmol/L BUN (9-20) mg/dL Creatinine (0.66-1.25) mg/dL Est GFR (CKD-EPI)AfAm (>60 ml/min/1.73 sqM) Est GFR (CKD-EPI)NonAf (>60 ml/min/1.73 sqM) Glucose (74-99) mg/dL Plasma Lactic Acid Lux (0.7-2.0) mmol/L Calcium (8.4-10.2) mg/dL Magnesium (1.6-2.3) mg/dL Total Bilirubin (0.2-1.3) mg/dL AST (17-59) U/L ALT (4-49) U/L Alkaline Phosphatase (38-126) U/L Total Protein (6.3-8.2) g/dL Albumin (3.5-5.0) g/dL Urine Color Light Yellow Urine Appearance Clear (Clear) Urine pH 7.5 (5.0-8.0) Ur Specific [place] 1.018 (1.001-1.035) Urine Protein Trace H (Negative) Urine Glucose (UA) Negative (Negative) Urine Ketones 1+ H (Negative) Urine Blood Negative (Negative) Urine Nitrite Negative (Negative) Urine Bilirubin Negative (Negative) Urine Urobilinogen <2.0 (<2.0) mg/dL Ur Leukocyte Esterase Negative (Negative) Influenza Type A (PCR) (Not Detectd) Influenza Type B (PCR) (Not Detectd) RSV (PCR) (Not Detectd) SARS-CoV-2 (PCR) (Not Detectd) 09/07/23 09/07/23 09/07/23 Range/Units 23:24 23:24 23:24 WBC (3.8-10.6) k/uL RBC (4.30-5.90) m/uL Hgb (13.0-17.5) gm/dL Hct (39.0-53.0) % MCV (80.0-100.0) fL MCH (25.0-35.0) pg MCHC (31.0-37.0) g/dL RDW (11.5-15.5) % Plt Count (150-450) k/uL MPV Neutrophils % % Lymphocytes % % Monocytes % % Eosinophils % % Basophils % % Neutrophils # (1.3-7.7) k/uL Lymphocytes # (1.0-4.8) k/uL Monocytes # (0-1.0) k/uL Eosinophils # (0-0.7) k/uL Basophils # (0-0.2) k/uL PT (10.0-12.5) sec INR (<1.2) APTT (22.0-30.0) sec Sodium 135 L (137-145) mmol/L Potassium 4.5 (3.5-5.1) mmol/L Chloride 99 (98-107) mmol/L Carbon Dioxide 26 (22-30) mmol/L Anion Gap 10 mmol/L BUN 28 H (9-20) mg/dL Creatinine 1.08 (0.66-1.25) mg/dL Est GFR (CKD-EPI)AfAm 76 (>60 ml/min/1.73 sqM) Est GFR (CKD-EPI)NonAf 66 (>60 ml/min/1.73 sqM) Glucose 128 H (74-99) mg/dL Plasma Lactic Acid Lux 0.9 (0.7-2.0) mmol/L Calcium 9.4 (8.4-10.2) mg/dL Magnesium 2.0 (1.6-2.3) mg/dL Total Bilirubin 0.7 (0.2-1.3) mg/dL AST 26 (17-59) U/L ALT 6 (4-49) U/L Alkaline Phosphatase 74 (38-126) U/L Total Protein 6.3 (6.3-8.2) g/dL Albumin 3.9 (3.5-5.0) g/dL Urine Color Urine Appearance (Clear) Urine pH (5.0-8.0) Ur Specific [place] (1.001-1.035) Urine Protein (Negative) Urine Glucose (UA) (Negative) Urine Ketones (Negative) Urine Blood (Negative) Urine Nitrite (Negative) Urine Bilirubin (Negative) Urine Urobilinogen (<2.0) mg/dL Ur Leukocyte Esterase (Negative) Influenza Type A (PCR) Not Detected (Not Detectd) Influenza Type B (PCR) Not Detected (Not Detectd) RSV (PCR) Not Detected (Not Detectd) SARS-CoV-2 (PCR) Not Detected (Not Detectd) - EKG Data -: EKG Interpreted by Me EKG Comments: 12-lead Electrocardiogram Interpretation Note EKG was reviewed and interpreted by myself. 12-lead ECG performed at 2340 is interpreted by me as revealing normal sinus rhythm at a rate of 68 beats per minute. [place] is normal. [place] interval is 175 ms, QRS duration is 90 ms, QTc is 417 ms.. There were no ST or T wave abnormalities to suggest myocardial ischemia or injury. R wave progression across the precordium was satisfactory. By my interpretation this EKG is non-diagnostic for acute ischemia.. Disposition Clinical Impression: Weakness Disposition: ADMITTED IP TO THIS HOSP Condition: Stable Time of Disposition: 01:05
[2023-09-08 00:42] LABS: Appearance,Urine Clear (Clear); Bilirubin,Urine Negative (Negative); Blood,Urine Negative (Negative); Color,Urine Light Yellow; Glucose,Urine (UA) Negative (Negative); Ketones,Urine 1+ (Negative); Leukocyte Esterase,Urine Negative (Negative); Nitrite,Urine Negative (Negative); PH, Urine 7.5 (5.0-8.0); Protein,Urine Trace (Negative); Specific Gravity,Urine 1.018 (1.001-1.035); Urobilinogen,Urine <2.0 mg/dL (<2.0)
--- NOTE | 2023-09-08 01:03 | XR ---
EXAM: XR Chest, 2 Views CLINICAL HISTORY: ITS.REASON XR Reason: Weakness TECHNIQUE: Frontal and lateral views of the chest. COMPARISON: No relevant prior studies available. FINDINGS: Lungs: Unremarkable. No consolidation. Pleural space: Unremarkable. No pneumothorax. Heart: Unremarkable. No cardiomegaly. Mediastinum: Unremarkable. Normal mediastinal contour. Bones/joints: Unremarkable. No acute fracture. IMPRESSION: Normal chest x-rays.
[2023-09-08] MEDS ORDERED: IPRATROPIUM-ALBUTEROL 3 ML NEB INHALATION STA (01:15)
[2023-09-08] MEDS ORDERED: ONDANSETRON 4 MG/2 ML VIAL IVP PRN (01:17)
[2023-09-08] MEDS ORDERED: ACETAMINOPHEN TAB 325 MG TAB PO PRN (01:17)
[2023-09-08] MEDS ORDERED: NALOXONE 0.4 MG/ML 1 ML VIAL IV PRN (01:17)
[2023-09-08] MEDS: SODIUM CHLORIDE 0.9% 1,000 ML IV SCH ×2 (02:25→16:14)
--- NOTE | 2023-09-08 06:44 | P.CNPUL ---
History of Present Illness Consult date: 09/08/23 Requesting physician: Andrew Couch Reason for consult: dyspnea Chief complaint: "Anxiety attacks" and shortness of breath History of present illness: I am seeing this patient in new consultation today 09/08/2023 in the emergency room after he presented with episodic shortness of breath and "anxiety attacks". Patient is a 78-year-old white male with past medical history significant for moderate to severe Parkinson's disease with Doupa pump, dysphagia, dementia, recent diagnosis of diabetes, obstructive sleep apnea with CPAP. His PCP is Dr. Burton, and does follow with Dr. Galdamez. Patient provides very limited information. He is confused and only oriented to self. He appears weak and deconditioned. He lives at home with his . I did speak to the patient's over the phone. She states that he has had intermittent episodic episodes of shortness of breath over the last 2 months, and over the last 2 weeks he has become more weak, more confused than baseline, and having what she feels are anxiety attacks. This occur even at rest. She denies any other observable symptoms while at home. No witnessed aspiration. Denies any history of pulmonary disease. Does not smoke. No reported heart palpitations, syncopal episodes, or chest pain. Patient is currently lying in bed, sleeping, on room air. SpO2 is 95%. Not in any respiratory distress. He does have a resting tremor. Chest x- ray on arrival did not demonstrate any cardiopulmonary disease process. CBC on arrival is unremarkable. BMP on arrival also unremarkable. Normal saline is infusing at 75 mL per hour. Urinalysis not concerning for UTI. Lactic acid level 0.9. Negative for influenza, RSV, COVID-19. Afebrile. Vital signs are stable. He is being admitted to the general medical floor. Review of Systems ROS unobtainable: due to mental status Past Medical History Past Medical History: Cancer, Hyperlipidemia, Musculoskeletal Disorder, Osteoarthritis (OA), Sleep Apnea/CPAP/BIPAP Additional Past Medical History / Comment(s): hx [id number], Skin CA. small hiatal hernia, diff swallowing, arthritis rt hand, Parkinson History of Any Multi-Drug Resistant Organisms: None Reported Past Surgical History: Cardiac Ablation, Orthopedic Surgery Additional Past Surgical History / Comment(s): skin cancer removed from forehead, .Lt ring finger amputation. arthroscopic surgery on left hip and left knee Past Anesthesia/Blood Transfusion Reactions: No Reported Reaction Past Psychological History: No Psychological Hx Reported Smoking Status: Never smoker Past Alcohol Use History: Rare Past Drug Use History: None Reported - Past Family History Mother Family Medical History: Cancer Additional Family Medical History / Comment(s): Breast CA. Father Family Medical History: Cancer Additional Family Medical History / Comment(s): Prostate CA with mets to liver and colon Sister(s) Family Medical History: Cancer Additional Family Medical History / Comment(s): Ovarian CA. Medications and Allergies Home Medications Medication Instructions Recorded Confirmed Type Simvastatin [Zocor] 10 mg PO HS 10/21/16 03/09/22 History Aspirin [Adult Low Dose Aspirin EC] 81 mg PO HS 06/30/17 03/09/22 History Carbidopa-Levodopa ER 50-200Mg 1 tab PO TID@0900,1300,1700 03/09/22 03/09/22 History [Sinemet CR 50-200 mg] Ciprofloxacin HCl 500 mg PO BID 03/09/22 03/09/22 History Donepezil HCl [Aricept] 10 mg PO HS 03/09/22 03/09/22 History FLUoxetine HCL [PROzac] 20 mg PO HS 03/09/22 03/09/22 History Temazepam [Restoril] 15 mg PO HS 03/09/22 03/09/22 History hydrOXYzine HCL [Atarax] 50 mg PO HS 03/09/22 03/09/22 History metroNIDAZOLE [Flagyl] 500 mg PO QID 03/09/22 03/09/22 History rOPINIRole HCL [Requip] 0.25 mg PO HS 03/09/22 03/09/22 History Allergies Allergy/AdvReac Type Severity Reaction Status Date / Time No Known Allergies Allergy Verified 09/07/23 22:34 Physical Exam Vitals: Vital Signs Temp Pulse Resp BP Pulse Ox 09/08/23 04:00 73 18 137/75 94 L 09/08/23 03:34 78 18 149/79 95 09/08/23 02:34 71 18 151/75 95 09/08/23 01:48 63 09/08/23 01:38 69 09/08/23 01:34 71 18 154/79 95 09/07/23 23:00 18 09/07/23 22:31 98.0 F 72 20 161/80 96 Intake and Output 09/07/23 09/07/23 09/08/23 14:59 22:59 06:59 Other: Weight 57.153 kg GENERAL EXAM: Alert, 78-year-old white male with flat affect, comfortable in no apparent distress. HEAD: Normocephalic and atraumatic EYES: Normal reaction of pupils, equal size. NOSE: Clear with pink turbinates. THROAT: No erythema or exudates. NECK: No masses, no JVD. CHEST: No chest wall deformity. LUNGS: Equal air entry with no crackles, wheeze, rhonchi or dullness. On room air. No conversational dyspnea or accessory muscle use.. CVS: S1 and S2 normal with no audible murmur, regular rhythm. No extra heart sounds ABDOMEN: No hepatosplenomegaly, active bowel sounds, no guarding or rigidity. Duo pump insertion site is clean and dry. SPINE: No scoliosis or deformity SKIN: No rashes CENTRAL NERVOUS SYSTEM: No focal deficits, tone is normal in all 4 extremities. Generalized resting tremor EXTREMITIES: Rigidity. There is no peripheral edema, clubbing, or cyanosis. Peripheral pulses are intact. Results - Laboratory Findings CBC and BMP: 09/07/23 23:24 09/07/23 23:24 PT/INR, D-dimer PT 10.4 sec (10.0-12.5) 09/07/23 23:24 INR 0.9 (<1.2) 09/07/23 23:24 Abnormal lab findings: Abnormal Labs 09/07/23 09/07/23 09/07/23 23:24 23:24 23:24 RBC 4.17 L Lymphocytes # 0.9 L Sodium 135 L BUN 28 H Glucose 128 H Urine Protein Trace H Urine Ketones 1+ H - Diagnostic Findings Chest x-ray: image reviewed Assessment and Plan Assessment: Episodic dyspnea, under investigation. Chest x-ray did not show any acute cardiopulmonary process. No history of pulmonary disease. Negative for influenza, RSV, COVID-19 Moderate to severe progression of Parkinson's disease Dementia, on Aricept Possible anxiety Diabetes mellitus type 2, recently started on metformin outpatient Hyperlipidemia History of Mota Parkinson White, previous cardiac ablation Obstructive sleep apnea, on CPAP at home Plan: Patient's medications, labs, chest x-ray reviewed Patient's dyspnea is currently under investigation. No clear-cut etiology. No infectious symptoms reported. No history of pulmonary disease other than JAMEY. May consider PFT on outpatient basis. Patient is currently on room air, not in any respiratory distress. SpO2 is reading 95%. echocardiogram pending. We will continue to follow I have personally seen and examined the patient, performed the documentation and the assessment and plan as written. Number of minutes spent on the visit:20 Time with Patient: Greater than 30
[2023-09-08] MEDS: HEPARIN SODIUM,PORCINE 5,000 UNIT/ML 1 ML VIAL SQ SCH ×2 (08:23→21:07)
[2023-09-08] MEDS: glipiZIDE 5 MG TAB PO SCH (13:13)
[2023-09-08] MEDS: metFORMIN 500 MG TAB PO SCH (13:13)
[2023-09-08] MEDS: LEVODOPA MISCELLANE SCH (13:15)
[2023-09-08] MEDS: CARBIDOPA MISCELLANE SCH (13:15)
--- NOTE | 2023-09-08 15:01 | P.HPIM ---
History of Present Illness H&P Date: 09/08/23 Birgit Huff, is a 78-year-old male who presented to [facility] emergency room with multiple medical problems, per his at the bedside, patient was having episodes of shaking, episodes of shortness of breath, and generalized weakness, she was concerned that patient may have seizures so she called EMS. Patient has a known history of advanced Parkinson disease, he has a carbidopa/levodopa pump, he also has a known history of diabetes mellitus, Alzheimer disease with dementia, and hyperlipidemia. He was evaluated in the emergency room vital examination on presentation reveal ed a temperature of 98 pulse 72 respiration 20 blood pressure 161/80 pulse ox 96% on room air Laboratory data revealed a white blood count of 8.0 hemoglobin 13.2 platelet count 223 sodium 135 potassium 4.5 chloride 99 CO2 26 BUN 28 creatinine 1.08 Testing in the emergency room revealed EKG revealed sinus rhythm normal EKG, chest x-ray revealed normal chest. Patient was admitted to medical floor for further evaluation and treatment Past Medical History Past Medical History: Cancer, Diabetes Mellitus, Hyperlipidemia, Musculoskeletal Disorder, Osteoarthritis (OA), Sleep Apnea/CPAP/BIPAP Additional Past Medical History / Comment(s): hx [id number], Skin CA. small hiatal hernia, diff swallowing, arthritis rt hand, Parkinson History of Any Multi-Drug Resistant Organisms: None Reported Past Surgical History: Cardiac Ablation, Orthopedic Surgery Additional Past Surgical History / Comment(s): skin cancer removed from forehead, .Lt ring finger amputation. arthroscopic surgery on left hip and left knee Past Anesthesia/Blood Transfusion Reactions: No Reported Reaction Past Psychological History: No Psychological Hx Reported Smoking Status: Never smoker Past Alcohol Use History: Rare Past Drug Use History: None Reported - Past Family History Mother Family Medical History: Cancer Additional Family Medical History / Comment(s): Breast CA. Father Family Medical History: Cancer Additional Family Medical History / Comment(s): Prostate CA with mets to liver and colon Sister(s) Family Medical History: Cancer Additional Family Medical History / Comment(s): Ovarian CA. Medications and Allergies Home Medications Medication Instructions Recorded Confirmed Type Simvastatin [Zocor] 10 mg PO HS 10/21/16 09/08/23 History Aspirin [Adult Low Dose Aspirin EC] 81 mg PO HS 06/30/17 09/08/23 History Donepezil HCl [Aricept] 10 mg PO HS 03/09/22 09/08/23 History FLUoxetine HCL [PROzac] 20 mg PO HS 03/09/22 09/08/23 History Temazepam [Restoril] 15 mg PO HS PRN 03/09/22 09/08/23 History rOPINIRole HCL [Requip] 0.25 mg PO TID 03/09/22 09/08/23 History Carbidopa/Levodopa [Duopa 4.63 1 dose MISCELLANE DIRECTED 09/08/23 09/08/23 History mg-20 mg/ml Susp] Mv-Min/Folic/K1/Lycopen/Lutein 1 tab PO DAILY 09/08/23 09/08/23 History [Centrum Silver Men Tablet] glipiZIDE/METFORMIN HCL 1 tab PO DAILY 09/08/23 09/08/23 History [glipiZIDE/METFORMIN HCL 5-500 mg] Allergies Allergy/AdvReac Type Severity Reaction Status Date / Time No Known Allergies Allergy Verified 09/08/23 08:56 Physical Exam Vitals: Vital Signs Temp Pulse Pulse Resp BP BP Pulse Ox 09/08/23 08:23 92 L 09/08/23 08:08 98.0 F 79 18 149/76 09/08/23 06:00 79 18 154/68 94 L 09/08/23 04:00 73 18 137/75 94 L 09/08/23 03:34 78 18 149/79 95 09/08/23 02:34 71 18 151/75 95 09/08/23 01:48 63 09/08/23 01:38 69 09/08/23 01:34 71 18 154/79 95 09/07/23 23:00 18 09/07/23 22:31 98.0 F 72 20 161/80 96 Intake and Output 09/07/23 09/08/23 09/08/23 22:59 06:59 14:59 Other: Voiding Method Bedpan Urinal Weight 57.153 kg 57.153 kg In general patient is alert and oriented x 3 in no distress HEENT head normocephalic and atraumatic Neck is supple no JVD no goiter no lymphadenopathy no carotid bruit Chest examination is clear to auscultation no crackles no wheezing Cardiac exam reveals regular heart sounds S1 and S2 no gallops no murmurs Abdomen is soft nontender no organomegaly with normal bowel sounds Extremity exam reveals no edema no cyanosis or clubbing Neurological examination reveals no gross focal deficits Results CBC & Chem 7: 09/07/23 23:24 09/07/23 23:24 Labs: Abnormal Lab Results - Last 24 Hours (Table) 09/07/23 09/07/23 09/07/23 Range/Units 23:24 23:24 23:24 RBC 4.17 L (4.30-5.90) m/uL Lymphocytes # 0.9 L (1.0-4.8) k/uL Sodium 135 L (137-145) mmol/L BUN 28 H (9-20) mg/dL Glucose 128 H (74-99) mg/dL Urine Protein Trace H (Negative) Urine Ketones 1+ H (Negative) Thrombosis Risk Factor Assmnt - Choose All That Apply Any of the Below Risk Factors Present?: No Other Risk Factors: Yes Each Risk Factor Represents 2 Points: Malignancy Each Risk Factor Represents 3 Points: Age 75 years or older Other congenital or acquired thrombophilia - If yes, enter type in comment: No Thrombosis Risk Factor Assessment Total Risk Factor Score: 5 Thrombosis Risk Factor Assessment Level: High Risk Assessment and Plan Plan: Generalized weakness Episodes of shaking rule out seizure activity Episodes of shortness of breath Underlying history of Parkinson disease maintained on Levodopa/carbidopa pump Underlying history of Alzheimer's disease with dementia maintained on Aricept Underlying history of hyperlipidemia maintained on Lipitor At this time patient was seen and examined on the medical floor Home medications reviewed and reordered For DVT prophylaxis subcu Lovenox Pulmonary consultation and neurology consultation requested Will follow closely
[2023-09-08] MEDS: ASPIRIN 81 MG PO SCH (21:06)
[2023-09-08] MEDS: ATORVASTATIN 10 MG TAB PO SCH (21:07)
[2023-09-08] MEDS: DONEPEZIL 10 MG TAB PO SCH (21:07)
[2023-09-08] MEDS: FLUoxetine HCL 20 MG CAP PO SCH (21:07)
[2023-09-09] MEDS: SODIUM CHLORIDE 0.9% 1,000 ML IV SCH ×2 (05:20→19:34)
[2023-09-09 08:31] LABS: Basophils # (A) 0.04 X 10*3/uL (0.00-0.10); Basophils % (A) 0.5 %; Eosinophils # (A) 0.08 X 10*3/uL (0.04-0.35); HCT 38.6 % (39.6-50.0); HGB 12.8 g/dL (13.0-17.0); Lymphocytes # (A) 1.58 X 10*3/uL (0.90-5.00); Lymphocytes % (A) 20.2 %; MCH 31.2 pg (27.0-32.0); MCHC 33.2 g/dL (32.0-37.0); MCV 94.1 FL (80.0-97.0); Mean Platelet Volume 10.1 FL (9.5-12.2); Monocytes # (A) 0.57 X 10*3/uL (0.20-1.00); Monocytes % (A) 7.3 %; NRBC Per 100 WBC 0 X 10*3/uL (0.00-0.01); Neutrophils % (A) 70.5 %; Platelet Count 246 X 10*3/uL (140-440); RDW 13.3 % (11.5-14.5); WBC 7.81 X 10*3/uL (4.50-10.00)
[2023-09-09] MEDS: MULTIVITAMINS, THERA 1 EACH TAB PO SCH (08:46)
[2023-09-09] MEDS: glipiZIDE 5 MG TAB PO SCH (08:46)
[2023-09-09] MEDS: metFORMIN 500 MG TAB PO SCH (08:47)
[2023-09-09] MEDS: LEVODOPA MISCELLANE SCH (08:47)
[2023-09-09] MEDS: HEPARIN SODIUM,PORCINE 5,000 UNIT/ML 1 ML VIAL SQ SCH ×2 (08:47→19:57)
[2023-09-09] MEDS: CARBIDOPA MISCELLANE SCH (08:47)
[2023-09-09 09:25] LABS: ALT <5 U/L (10-49); AST 31 U/L (14-35); Albumin 4.2 g/dL (3.8-4.9); Albumin/Globulin Ratio 2.33 Ratio (1.60-3.17); Alkaline Phosphatase 77 U/L (41-126); Blood Urea Nitrogen 21.7 mg/dL (9.0-27.0); Calcium 9.6 mg/dL (8.7-10.3); Carbon Dioxide 23.2 mmol/L (21.6-31.8); Chloride 104 mmol/L (96-109); Globulin 1.8 g/dL (1.6-3.3); Glucose 98 mg/dL (70-110); Potassium 4.5 mmol/L (3.5-5.5); Sodium 141 mmol/L (135-145); Total Bilirubin 0.4 mg/dL (0.3-1.2)
--- NOTE | 2023-09-09 10:40 | P.PN ---
Subjective Progress Note Date: 09/09/23 Birgit Huff, is a 78-year-old male who presented to [facility] emergency room with multiple medical problems, per his at the bedside, patient was having episodes of shaking, episodes of shortness of breath, and generalized weakness, she was concerned that patient may have seizures so she called EMS. Patient has a known history of advanced Parkinson disease, he has a carbidopa/levodopa pump, he also has a known history of diabetes mellitus, Alzheimer disease with dementia, and hyperlipidemia. He was evaluated in the emergency room vital examination on presentation revealed a temperature of 98 pulse 72 respiration 20 blood pressure 161/80 pulse ox 96% on room air Laboratory data revealed a white blood count of 8.0 hemoglobin 13.2 platelet count 223 sodium 135 potassium 4.5 chloride 99 CO2 26 BUN 28 creatinine 1.08 Testing in the emergency room revealed EKG revealed sinus rhythm normal EKG, chest x-ray revealed normal chest. Patient was admitted to medical floor for further evaluation and treatment On 09/09/2023 patient is alert and oriented 3. Awaiting neurology input 2-D echo completed awaiting reading. Patient reports improvement with shortness of breath. Vital signs temp 97.7, heart rate 71, respiratory rate 16, blood pressure 158/65 with pulse ox of 94%. Patient denies chest pain or shortness breath. Patient denies nausea vomiting or diarrhea. Patient denies any urinary burning or frequency Objective - Vital Signs Vital signs: Vital Signs Temp 97.9 F 09/09/23 07:00 Pulse 61 09/09/23 07:00 Resp 16 09/09/23 07:00 BP 163/82 09/09/23 07:00 Pulse Ox 94 L 09/09/23 07:00 FiO2 Intake & Output 09/08/23 09/09/23 09/09/23 18:59 06:59 18:59 Output Total 900 300 Balance -900 -300 Weight 57.153 kg Output: Urine 900 300 Other: Voiding Method Bedpan Toilet Urinal Diaper # Voids 3 3 - Exam In general patient is alert and oriented x 3 in no distress HEENT head normocephalic and atraumatic Neck is supple no JVD no goiter no lymphadenopathy no carotid bruit Chest examination is clear to auscultation no crackles no wheezing Cardiac exam reveals regular heart sounds S1 and S2 no gallops no murmurs Abdomen is soft nontender no organomegaly with normal bowel sounds Extremity exam reveals no edema no cyanosis or clubbing Neurological examination reveals no gross focal deficits - Labs CBC & Chem 7: 09/09/23 05:37 09/09/23 05:37 Labs: Abnormal Lab Results - Last 24 Hours (Table) 09/09/23 09/09/23 Range/Units 05:37 05:37 RBC 4.10 L (4.40-5.60) X 10*6/uL Hgb 12.8 L (13.0-17.0) g/dL Hct 38.6 L (39.6-50.0) % Anion Gap 13.80 H (4.00-12.00) mmol/L Est GFR (CKD-EPI) 52 L (>=60) ALT <5 L (10-49) U/L Total Protein 6.0 L (6.2-8.2) g/dL Assessment and Plan Plan: Generalized weakness Episodes of shaking rule out seizure activity Episodes of shortness of breath Underlying history of Parkinson disease maintained on Levodopa/carbidopa pump Underlying history of Alzheimer's disease with dementia maintained on Aricept Underlying history of hyperlipidemia maintained on Lipitor At this time patient was seen and examined on the medical floor Home medications reviewed and reordered For DVT prophylaxis subcu Lovenox Pulmonary consultation and neurology consultation requested Will follow closely
--- NOTE | 2023-09-09 12:32 | CA ---
Transthoracic Echo Report Name: Birgit Huff Age: 78 Gender: M : 1945 Exam Date: 09/09/2023 09:11 Exam Location: [place] [facility] Ht (in): 60 Wt (lb): 126 Ordering Physician: Andrew Couch MD Attending/Referring Phys: Saw Man Martine Escobar RDCS Procedure CPT: Indications: dyspnea Cardiac Hx: Technical Quality: Fair Contrast 1: Total Dose (mL): Contrast 2: Total Dose (mL): MEASUREMENTS (Male / Female) Normal Values 2D ECHO LV Diastolic Diameter PLAX 4.7 cm 4.2 - 5.9 / 3.9 - 5.3 cm LV Systolic Diameter PLAX 3.1 cm IVS Diastolic Thickness 1.0 cm 0.6 - 1.0 / 0.6 - 0.9 cm LVPW Diastolic Thickness 1.0 cm 0.6 - 1.0 / 0.6 - 0.9 cm LV Relative Wall Thickness 0.4 LA Systolic Diameter LX 3.0 cm 3.0 - 4.0 / 2.7 - 3.8 cm LA Volume 28.5 cm??? 18 - 58 / 22 - 52 cm??? LA Volume Index 18.2 cm???/m??? 16 - 28 cm???/m??? M-MODE Aortic Root Diameter MM 3.6 cm AV Cusp Separation MM 2.0 cm DOPPLER AV Peak Velocity 83.5 cm/s AV Peak Gradient 2.8 mmHg MV Area PHT 2.7 cm??? Mitral E Point Velocity 57.8 cm/s Mitral A Point Velocity 77.7 cm/s Mitral E to A Ratio 0.7 MV Deceleration Time 279.3 ms MV E' Velocity 5.1 cm/s Mitral E to MV E' Ratio 11.3 FINDINGS Left Ventricle Left ventricular ejection fraction is estimated at 55-60 %. Left ventricular cavity size normal. Right Ventricle Right ventricle not well visualized. Right Atrium Normal right atrial size. Left Atrium Normal left atrial size. Mitral Valve Structurally normal mitral valve. No mitral stenosis, regurgitation or prolapse. Aortic Valve Trileaflet aortic valve. Aortic valve sclerosis. Tricuspid Valve Structurally normal tricuspid valve. No tricuspid stenosis, regurgitation or prolapse. Pulmonic Valve Structurally normal pulmonic valve. Trace pulmonic regurgitation. Pericardium No pericardial effusion. Aorta Normal size aortic root and proximal ascending aorta. CONCLUSIONS Normal LV systolic function Previewed by: Dr. Andrew Workmna MD (Electronically Signed) Final Date: 09 September 2023 12:31
--- NOTE | 2023-09-09 15:06 | P.PN ---
Subjective Progress Note Date: 09/09/23 I am seeing this patient in new consultation today 09/08/2023 in the emergency room after he presented with episodic shortness of breath and "anxiety attacks". Patient is a 78-year-old white male with past medical history significant for moderate to severe Parkinson's disease with Doupa pump, dysphagia, dementia, recent diagnosis of diabetes, obstructive sleep apnea with CPAP. His PCP is Dr. Burton, and does follow with Dr. Galdamez. Patient provides very limited information. He is confused and only oriented to self. He appears weak and deconditioned. He lives at home with his . I did speak to the patient's over the phone. She states that he has had intermittent episodic episodes of shortness of breath over the last 2 months, and over the last 2 weeks he has become more weak, more confused than baseline, and having what she feels are anxiety attacks. This occur even at rest. She denies any other observable symptoms while at home. No witnessed aspiration. Denies any history of pulmonary disease. Does not smoke. No reported heart palpitations, syncopal episodes, or chest pain. Patient is currently lying in bed, sleeping, on room air. SpO2 is 95%. Not in any respiratory distress. He does have a resting tremor. Chest x- ray on arrival did not demonstrate any cardiopulmonary disease process. CBC on arrival is unremarkable. BMP on arrival also unremarkable. Normal saline is infusing at 75 mL per hour. Urinalysis not concerning for UTI. Lactic acid level 0.9. Negative for influenza, RSV, COVID-19. Afebrile. Vital signs are stable. He is being admitted to the general medical floor. The patient is seen today 09/09/2023 in follow-up on the regular medical floor. He is currently sitting up in bed. Awake and alert in no acute distress. Maintaining good O2 saturations in the 90s on room air. No IV fluids. Echocardiogram revealed preserved left ventricle systolic function with ejection fraction 55-60%. White count 7.8. Hemoglobin 12.8. Platelets 246. Sodium 141. Potassium 4.5. Bicarb 23. BUN 22. Creatinine 1.4. Glucose 98. He is continued on heparin for DVT prophylaxis. Objective - Vital Signs Vital signs: Vital Signs Temp 97.5 F L 09/09/23 14:58 Pulse 65 09/09/23 14:58 Resp 16 09/09/23 14:58 BP 119/61 09/09/23 14:58 Pulse Ox 96 09/09/23 14:58 FiO2 Intake & Output 09/08/23 09/09/23 09/09/23 18:59 06:59 18:59 Intake Total 354 Output Total 900 300 Balance -900 54 Weight 57.153 kg Intake: Oral 354 Output: Urine 900 300 Other: Voiding Method Bedpan Toilet Toilet Urinal Diaper Diaper # Voids 3 3 - Exam GENERAL EXAM: Alert, 78-year-old male with flat affect, on room air, comfortable in no apparent distress. HEAD: Normocephalic and atraumatic EYES: Normal reaction of pupils, equal size. NOSE: Clear with pink turbinates. THROAT: No erythema or exudates. NECK: No masses, no JVD. CHEST: No chest wall deformity. LUNGS: Equal air entry with no crackles, wheeze, rhonchi or dullness. No conversational dyspnea. CVS: S1 and S2 normal with no audible murmur, regular rhythm. No extra heart sounds ABDOMEN: No hepatosplenomegaly, active bowel sounds, no guarding or rigidity. Duo pump insertion site is clean and dry. SPINE: No scoliosis or deformity SKIN: No rashes CENTRAL NERVOUS SYSTEM: No focal deficits, tone is normal in all 4 extremities. Generalized resting tremor EXTREMITIES: Rigidity. There is no peripheral edema, clubbing, or cyanosis. Peripheral pulses are intact. - Labs CBC & Chem 7: 09/09/23 05:37 09/09/23 05:37 Labs: Abnormal Lab Results - Last 24 Hours (Table) 09/09/23 09/09/23 Range/Units 05:37 05:37 RBC 4.10 L (4.40-5.60) X 10*6/uL Hgb 12.8 L (13.0-17.0) g/dL Hct 38.6 L (39.6-50.0) % Anion Gap 13.80 H (4.00-12.00) mmol/L Est GFR (CKD-EPI) 52 L (>=60) ALT <5 L (10-49) U/L Total Protein 6.0 L (6.2-8.2) g/dL Assessment and Plan Assessment: Episodic dyspnea, under investigation. Chest x-ray did not show any acute cardiopulmonary process. No history of pulmonary disease. Negative for influenza, RSV, COVID-19 Moderate to severe progression of Parkinson's disease Dementia, on Aricept Possible anxiety Diabetes mellitus type 2, recently started on metformin outpatient Hyperlipidemia History of Mota Parkinson White, previous cardiac ablation Obstructive sleep apnea, on CPAP at home Plan: The patient was seen and evaluated Echocardiogram, labs and medications reviewed Stable and on room air Continue the current treatment plan I have personally seen and examined the patient, performed the documentation and the assessment and plan as written. Number of minutes spent on the visit: 10.
--- NOTE | 2023-09-09 16:17 | P.CNNES ---
History of Present Illness Consult date: 09/09/23 Requesting physician: Stalin Levy Reason for Consult: weakness, parkinson disease History of Present Illness: Patient is a 78-year-old male with history of Parkinson's disease and dementia, came to the hospital, 2 days ago by ambulance on 09/07/2023 at 10:29 PM for worsening Parkinson's, and near syncopal spell. Patient not able to provide much history. He has mentioned his that he wants to . Per patient's , he has been diagnosed with Parkinson's disease about 4 years ago. Patient follows up with Dr. Bernard Bernardo, and patient's next appointment is in and of October 2023. Patient's mentioned on the day of admission, he was not feeling well all day. Usually with his Parkinson's, he does very well in the mornings, but his evenings and nights are bad. His Parkinson's gets worse, he cannot move and his has to help with everything, and with walking. He develops mucous in the throat, cannot cough it up and sometimes chokes. On the day of admission, in the evening, he was sitting in the chair and he started shaking, straightened out in the chair. Patient's brought the recliner back up and he shortly came out of it. He did wet himself. Patient states that he never passed out, and remembers the whole incident. No loss of consciousness. Patient's believes that it was "like a seizure". Patient has check blood pressure before the incident, which was 150/80s. When EMS came, they checked his vitals and was fine. Patient's mentions that his Parkinson's gets worse in the evening. He gets more dependent on her and his legs bother him. This is going on for months. Patient has a Duopa pump, and the last follow-up, the dose was increased to double and is getting the medication 24 hours a day. They have tried evening Sinemet dose, which did not help. Patient's believes that he has mild dementia, getting worse. Patient also has sleep apnea, uses CPAP machine. She believes that when he uses CPAP, in the morning, it loosens up the mucous, and he coughs it up. Patient's also mentions that he has developed hallucinations for the last 1 year. EMS flow sheet not available in the chart. Vital signs on arrival, blood pressure 161/80, pulse rate 72 temperature 98.0. EKG shows sinus rhythm. Chest x-ray is normal. 2-D echo revealed normal left ventricle systolic function. Left atrial size is normal. MRI of the brain performed 12/07/2022 revealed mild to moderate diffuse cerebral atrophy, greatest over the bilateral frontal and temporal lobes. Moderate to severe probable chronic small vessel ischemic change. Moderate chronic ethmoid sinus disease. There is no history of tobacco or alcohol use. He has been recently diagnosed w ith diabetes. Medications include simvastatin 10 mg, aspirin 81 mg, ropinirole 0.25 mg 3 times a day, donepezil 10 mg at bedtime, fluoxetine 20 mg at bedtime, glipizide/metformin, Duopa 4.63 mg-20 mg/mL suspension, 100 mL as directed. Review of Systems Constitutional: Denies chills (cold), Denies fever Eyes: denies blurred vision, denies diplopia, denies pain Ears: deny: decreased hearing, ear discharge Ears, nose, mouth and throat: Reports headache, Denies sore throat Cardiovascular: Reports shortness of breath, Denies chest pain Respiratory: Reports cough, Reports excessive sputum, Reports sleep apnea Gastrointestinal: Reports nausea, Denies abdominal pain, Denies diarrhea, Denies vomiting Genitourinary: Denies dysuria, Denies incontinence Musculoskeletal: Denies low back pain, Denies neck pain Integumentary: Denies pruritus, Denies rash Neurological: Denies aphasia, Denies numbness, Denies weakness Psychiatric: Reports depression, Reports hallucinations (Off and on for last 1 year), Reports memory loss Hematologic/Lymphatic: Denies easy bleeding, Denies easy bruising Past Medical History Past Medical History: Cancer, Diabetes Mellitus, Hyperlipidemia, Musculoskeletal Disorder, Osteoarthritis (OA), Sleep Apnea/CPAP/BIPAP Additional Past Medical History / Comment(s): hx [id number], Skin CA. small hiatal hernia, diff swallowing, arthritis rt hand, Parkinson History of Any Multi-Drug Resistant Organisms: None Reported Past Surgical History: Cardiac Ablation, Orthopedic Surgery Additional Past Surgical History / Comment(s): skin cancer removed from forehead, .Lt ring finger amputation. arthroscopic surgery on left hip and left knee Past Anesthesia/Blood Transfusion Reactions: No Reported Reaction Past Psychological History: No Psychological Hx Reported Smoking Status: Never smoker Past Alcohol Use History: Rare Past Drug Use History: None Reported - Past Family History Mother Family Medical History: Cancer Additional Family Medical History / Comment(s): Breast CA. Father Family Medical History: Cancer Additional Family Medical History / Comment(s): Prostate CA with mets to liver and colon Sister(s) Family Medical History: Cancer Additional Family Medical History / Comment(s): Ovarian CA. Medications and Allergies Home Medications Medication Instructions Recorded Confirmed Type Simvastatin [Zocor] 10 mg PO HS 10/21/16 09/08/23 History Aspirin [Adult Low Dose Aspirin EC] 81 mg PO HS 06/30/17 09/08/23 History Donepezil HCl [Aricept] 10 mg PO HS 03/09/22 09/08/23 History FLUoxetine HCL [PROzac] 20 mg PO HS 03/09/22 09/08/23 History Temazepam [Restoril] 15 mg PO HS PRN 03/09/22 09/08/23 History rOPINIRole HCL [Requip] 0.25 mg PO TID 03/09/22 09/08/23 History Carbidopa/Levodopa [Duopa 4.63 1 dose MISCELLANE DIRECTED 09/08/23 09/08/23 History mg-20 mg/ml Susp] Mv-Min/Folic/K1/Lycopen/Lutein 1 tab PO DAILY 09/08/23 09/08/23 History [Centrum Silver Men Tablet] glipiZIDE/METFORMIN HCL 1 tab PO DAILY 09/08/23 09/08/23 History [glipiZIDE/METFORMIN HCL 5-500 mg] Allergies Allergy/AdvReac Type Severity Reaction Status Date / Time No Known Allergies Allergy Verified 09/08/23 08:56 Physical Examination - Vital Signs Vital Signs: Vital Signs Temp Pulse Resp BP Pulse Ox 09/09/23 08:00 61 16 09/09/23 07:00 97.9 F 61 16 163/82 94 L 09/09/23 02:14 97.7 F 71 16 158/65 94 L 09/08/23 19:29 98.1 F 62 16 101/74 95 09/08/23 15:00 98.3 F 63 14 138/68 94 L Intake and Output 09/08/23 09/09/23 09/09/23 22:59 06:59 14:59 Intake Total 236 Output Total 300 Balance -64 Intake: Oral 236 Output: Urine 300 Other: Voiding Method Toilet Toilet Toilet Diaper Diaper Diaper # Voids 1 3 3 Patient is an elderly male, in no acute distress. Patient is alert awake. Patient states it is September and the year is 2013, then said it was 2023. He knows that he is in the hospital in [place] in [place], does not know the name. Patient has some hypophonia. Speech and language functions are normal. Patient can name and repeat very well. No aphasia or dysarthria. Attention, concentration is slightly impaired and fund of knowledge is limited. On cranial nerve examination, pupils are equal, round and reacting to light, visual enciso are full on confrontation, with no neglect on double simultaneous stimulation. Extraocular muscles are intact with no nystagmus. Face is symmetric, tongue protrudes to the midline. Palatal elevation and sensation normal, hearing and shoulder shrug normal, facial sensation normal. On muscle strength testing, there is no pronator drift and the strength is normal in arms and legs distally and proximally. Deep tendon reflexes are symmetric but overall hypoactive and plantars downgoing bilaterally. Sensory to touch is equal with no neglect on double simultaneous stimulation. Cerebellar function showed no ataxia for [id number] testing. No dysdiadochokinesia. No ataxia for [id number] testing on either side. Tone is normal in the arms, and no tremors at rest noted. No rigidity. Patient is slightly bradykinetic. His bulk of muscles normal. Gait deferred.. On general examination, there is no carotid bruit or murmur, S1-S2 audible. Chest is clear on consultation. Abdomen is soft nontender. No organomegaly, bowel sounds present. Peripheral pulses are present. No peripheral edema. Results - Laboratory Findings CBC and BMP: 09/09/23 05:37 09/09/23 05:37 Abnormal Lab Findings: Abnormal Labs 09/07/23 09/07/23 09/07/23 23:24 23:24 23:24 RBC 4.17 L Hgb Hct Lymphocytes # 0.9 L Sodium 135 L Anion Gap BUN 28 H Est GFR (CKD-EPI) Glucose 128 H ALT Total Protein Urine Protein Trace H Urine Ketones 1+ H 09/09/23 09/09/23 05:37 05:37 RBC 4.10 L Hgb 12.8 L Hct 38.6 L Lymphocytes # Sodium Anion Gap 13.80 H BUN Est GFR (CKD-EPI) 52 L Glucose ALT <5 L Total Protein 6.0 L Urine Protein Urine Ketones Assessment and Plan Assessment: * Near syncope, less likely seizure. This is likely triggered from viral syndrome. * Parkinson's disease * Mild dementia * Presence of Duopa pump * Diabetes * Hypertension * Hyperlipidemia * Sleep apnea, on CPAP machine Plan: * It appears patient's Parkinson's gets worse in the evening at night, daily for "months". I discussed with patient's about adding either Sinemet at night, but she believes it did not help and she declined. Recommended increase dose of Requip, but she declined, as the dose was just increased 0.25 mg 3 times a day to 4 times a day. She can increase the rate of Duopa pump, but she does not have instructions how to do it. Patient's wanted him to stay on the same medication regimen, and did not seem to accept any changes in his regimen. * 2-D echo revealed normal left ventricular size and systolic function with EF 55-60%. Left atrial size is normal. Aortic valve sclerosis. * Carotid Doppler, rule out stenosis. * EEG, can be done as an outpatient. Prescription provided and will be schedule d as an outpatient. * Recommend patient follow up with neurologist Dr. Maciel as outpatient for management of Parkinson's disease. Has an appointment in end of October 2023. * Continue donepezil 10 mg for cognitive impairment * B12, folate * Continue Requip 0.25 mg 4 times a day. * Neurologically clear, if the carotid Doppler comes back normal. * Dr. Gama will be covering neurology service over the weekend if any concerns. * Thank you for the consult. Addendum: About an hour later, I was passing by patient's room, and patient's diverted my attention to the patient. Went in to see patient having tremoring of the right arm. It was nervous shake, as when I alerted the patient a bit firmly, he stopped jerking, and was fully at baseline. I do not believe this wa s a seizure. Carotid Doppler revealed atheromatous plaquing without significant flow limiting stenosis. Antegrade flow in both vertebral arteries. Dr. Gama will be available for any neurological concerns over the weekend. Time with Patient: Greater than 30
--- NOTE | 2023-09-09 16:43 | US ---
EXAMINATION TYPE: US carotid duplex BILAT DATE OF EXAM: 09/09/2023 COMPARISON: NONE CLINICAL INDICATION: Male, 78 years old with history of Near syncope; Near syncope TECHNIQUE: Carotid duplex ultrasound examination. Indirect Doppler criteria was utilized. FINDINGS: EXAM MEASUREMENTS: RIGHT: Peak Systolic Velocity (PSV) cm/sec ----- Right CCA: 107 ----- Right ICA: 103 ----- Right ECA: 121 ICA/CCA ratio: 0.96 RIGHT: End Diastole cm/sec ----- Right CCA: 16.2 ----- Right ICA: 21.4 ----- Right ECA: 5.9 LEFT: Peak Systolic Velocity (PSV) cm/sec ----- Left CCA: 103 ----- Left ICA: 102 ----- Left ECA: 120 ICA/CCA ratio: 0.99 LEFT: End Diastole cm/sec ----- Left CCA: 18.2 ----- Left ICA: 19.8 ----- Left ECA: 2.2 VERTEBRALS (direction of flow): Right Vertebral: Antegrade Left Vertebral: Antegrade Rhythm: Normal [employer] NOTES: Mild plaque bilateral bifurcations. No evidence of increased velocities. Tortuous vessels bilaterally IMPRESSION: 1. Atheromatous plaquing without significant flow-limiting stenosis. Criteria for Assigning % of Stenosis / Diameter reduction (Estimation based on the indirect measurements of the internal carotid artery velocities (ICA PSV). 1. Normal (no stenosis)=ICA PSV < 125 cm/s: ratio < 2.0: ICA EDV<40 cm/s. 2. Less than 50% stenosis=ICA PSV < 125 cm/s: ratio < 2.0: ICA EDV<40 cm/s. 3. 50 to 69% stenosis=ICA PSV of 125 to 230 cm/s: ration 2.0 ? 4.0: ICA EDV 40-100 cm/s. 4. Greater than 70% stenosis to near occlusion= ICA PSV > 230 cm/s: ratio > 4.0: ICA EDV > 100 cm/s. 5. Near occlusion= ICA PSV velocities may be low or undetectable: variable ratio and ICA EDV. 6. Total occlusion=unable to detect flow.
[2023-09-09] MEDS: ASPIRIN 81 MG PO SCH (19:56)
[2023-09-09] MEDS: FLUoxetine HCL 20 MG CAP PO SCH (19:56)
[2023-09-09] MEDS: DONEPEZIL 10 MG TAB PO SCH (19:56)
[2023-09-09] MEDS: ATORVASTATIN 10 MG TAB PO SCH (19:57)
[2023-09-10] MEDS: SODIUM CHLORIDE 0.9% 1,000 ML IV SCH ×2 (05:49→19:42)
[2023-09-10] MEDS: LEVODOPA MISCELLANE SCH (08:58)
[2023-09-10] MEDS: metFORMIN 500 MG TAB PO SCH (08:58)
[2023-09-10] MEDS: glipiZIDE 5 MG TAB PO SCH (08:58)
[2023-09-10] MEDS: MULTIVITAMINS, THERA 1 EACH TAB PO SCH (08:58)
[2023-09-10] MEDS: CARBIDOPA MISCELLANE SCH (08:58)
[2023-09-10] MEDS: HEPARIN SODIUM,PORCINE 5,000 UNIT/ML 1 ML VIAL SQ SCH ×2 (08:58→19:41)
--- NOTE | 2023-09-10 11:01 | P.PN ---
Subjective Progress Note Date: 09/10/23 I am seeing this patient in new consultation today 09/08/2023 in the emergency room after he presented with episodic shortness of breath and "anxiety attacks". Patient is a 78-year-old white male with past medical history significant for moderate to severe Parkinson's disease with Doupa pump, dysphagia, dementia, recent diagnosis of diabetes, obstructive sleep apnea with CPAP. His PCP is Dr. Burton, and does follow with Dr. Galdamez. Patient provides very limited information. He is confused and only oriented to self. He appears weak and deconditioned. He lives at home with his . I did speak to the patient's over the phone. She states that he has had intermittent episodic episodes of shortness of breath over the last 2 months, and over the last 2 weeks he has become more weak, more confused than baseline, and having what she feels are anxiety attacks. This occur even at rest. She denies any other observable symptoms while at home. No witnessed aspiration. Denies any history of pulmonary disease. Does not smoke. No reported heart palpitations, syncopal episodes, or chest pain. Patient is currently lying in bed, sleeping, on room air. SpO2 is 95%. Not in any respiratory distress. He does have a resting tremor. Chest x- ray on arrival did not demonstrate any cardiopulmonary disease process. CBC on arrival is unremarkable. BMP on arrival also unremarkable. Normal saline is infusing at 75 mL per hour. Urinalysis not concerning for UTI. Lactic acid level 0.9. Negative for influenza, RSV, COVID-19. Afebrile. Vital signs are stable. He is being admitted to the general medical floor. The patient is seen today 09/09/2023 in follow-up on the regular medical floor. He is currently sitting up in bed. Awake and alert in no acute distress. Maintaining good O2 saturations in the 90s on room air. No IV fluids. Echocardiogram revealed preserved left ventricle systolic function with ejection fraction 55-60%. White count 7.8. Hemoglobin 12.8. Platelets 246. Sodium 141. Potassium 4.5. Bicarb 23. BUN 22. Creatinine 1.4. Glucose 98. He is continued on heparin for DVT prophylaxis. The patient is seen today 09/10/2023 in follow-up on the regular medical floor. He is currently sitting up in bed. Awake and alert. Somewhat confused to time and place. He is maintaining O2 saturations in the 90s on 2 L/m per nasal cannula. He has normal saline at 75 ML's per hour. Carotid Dopplers did not reveal any significant carotid artery stenosis. He remains on Aricept, Duopa, and Requip. Heparin for DVT prophylaxis. Objective - Vital Signs Vital signs: Vital Signs Temp 97.3 F L 09/10/23 07:00 Pulse 78 09/10/23 07:00 Resp 16 09/10/23 07:00 BP 159/78 09/10/23 07:00 Pulse Ox 96 09/10/23 07:00 FiO2 21 09/09/23 21:39 Intake & Output 09/09/23 09/10/23 09/10/23 18:59 06:59 18:59 Intake Total 354 120 Output Total 300 Balance 54 120 Intake: Oral 354 120 Output: Urine 300 Other: Voiding Method Toilet Toilet Toilet Diaper Diaper Diaper # Voids 4 2 - Exam GENERAL EXAM: Alert, pleasantly confused 78-year-old male with flat affect, on room air, comfortable in no apparent distress. HEAD: Normocephalic and atraumatic EYES: Normal reaction of pupils, equal size. NOSE: Clear with pink turbinates. THROAT: No erythema or exudates. NECK: No masses, no JVD. CHEST: No chest wall deformity. LUNGS: Equal air entry with no crackles, wheeze, rhonchi or dullness. No conversational dyspnea. CVS: S1 and S2 normal with no audible murmur, regular rhythm. No extra heart sounds ABDOMEN: No hepatosplenomegaly, active bowel sounds, no guarding or rigidity. Duo pump insertion site is clean and dry. SPINE: No scoliosis or deformity SKIN: No rashes CENTRAL NERVOUS SYSTEM: No focal deficits, tone is normal in all 4 extremities. Generalized resting tremor EXTREMITIES: Rigidity. There is no peripheral edema, clubbing, or cyanosis. Peripheral pulses are intact. - Labs CBC & Chem 7: 09/09/23 05:37 09/09/23 05:37 Assessment and Plan Assessment: Episodic dyspnea, under investigation. Chest x-ray did not show any acute cardiopulmonary process. No history of pulmonary disease. Negative for influenza, RSV, COVID-19 Moderate to severe progression of Parkinson's disease Dementia, on Aricept Possible anxiety Diabetes mellitus type 2, recently started on metformin outpatient Hyperlipidemia History of Mota Parkinson White, previous cardiac ablation Obstructive sleep apnea, on CPAP at home Plan: The patient was seen and evaluated Carotid Dopplers, medications reviewed Stable and on room air Continue the current treatment plan Plan is for home with home care per social work This patient was seen independently by the nurse practitioner I have personally seen and examined the patient, performed the documentation and the assessment and plan as written. Number of minutes spent on the visit: 22.
--- NOTE | 2023-09-10 12:37 | P.PN ---
Subjective Progress Note Date: 09/10/23 Birgit Huff, is a 78-year-old male who presented to [facility] emergency room with multiple medical problems, per his at the bedside, patient was having episodes of shaking, episodes of shortness of breath, and generalized weakness, she was concerned that patient may have seizures so she called EMS. Patient has a known history of advanced Parkinson disease, he has a carbidopa/levodopa pump, he also has a known history of diabetes mellitus, Alzheimer disease with dementia, and hyperlipidemia. He was evaluated in the emergency room vital examination on presentation revealed a temperature of 98 pulse 72 respiration 20 blood pressure 161/80 pulse ox 96% on room air Laboratory data revealed a white blood count of 8.0 hemoglobin 13.2 platelet count 223 sodium 135 potassium 4.5 chloride 99 CO2 26 BUN 28 creatinine 1.08 Testing in the emergency room revealed EKG revealed sinus rhythm normal EKG, chest x-ray revealed normal chest. Patient was admitted to medical floor for further evaluation and treatment On 09/09/2023 patient is alert and oriented 3. Awaiting neurology input 2-D echo completed awaiting reading. Patient reports improvement with shortness of breath. Vital signs temp 97.7, heart rate 71, respiratory rate 16, blood pressure 158/65 with pulse ox of 94%. Patient denies chest pain or shortness breath. Patient denies nausea vomiting or diarrhea. Patient denies any urinary burning or frequency. On 09/10/2023 patient was seen and examined on the medical floor he is alert and oriented 3 in no apparent distress, patient is complaining of extreme weakness with inability to stand or walk, there is no fever or chills no headache or dizziness no chest pain no shortness of breath no cough no nausea or vomiting no abdominal pain no diarrhea and no urinary symptoms. Physical therapy and occupational therapy consult requested.. Possibility of going home discussed with patient and in details, patient is having significant weakness and is stating that she is not able to take care for him at home , they are requesting evaluation by physical therapy, will follow closely Objective - Vital Signs Vital signs: Vital Signs Temp 97.3 F L 09/10/23 07:00 Pulse 78 09/10/23 07:00 Resp 16 09/10/23 07:00 BP 159/78 09/10/23 07:00 Pulse Ox 96 09/10/23 07:00 FiO2 21 09/09/23 21:39 Intake & Output 09/09/23 09/10/23 09/10/23 18:59 06:59 18:59 Intake Total 354 Output Total 300 Balance 54 Intake: Oral 354 Output: Urine 300 Other: Voiding Method Toilet Toilet Diaper Diaper # Voids 4 2 - Exam In general patient is alert and oriented x 3 in no distress HEENT head normocephalic and atraumatic Neck is supple no JVD no goiter no lymphadenopathy no carotid bruit Chest examination is clear to auscultation no crackles no wheezing Cardiac exam reveals regular heart sounds S1 and S2 no gallops no murmurs Abdomen is soft nontender no organomegaly with normal bowel sounds Extremity exam reveals no edema no cyanosis or clubbing Neurological examination reveals no gross focal deficits - Labs CBC & Chem 7: 09/09/23 05:37 09/09/23 05:37 Labs: Abnormal Lab Results - Last 24 Hours (Table) 09/09/23 Range/Units 05:37 Anion Gap 13.80 H (4.00-12.00) mmol/L Est GFR (CKD-EPI) 52 L (>=60) ALT <5 L (10-49) U/L Total Protein 6.0 L (6.2-8.2) g/dL Assessment and Plan Plan: Generalized weakness Episodes of shaking rule out seizure activity Episodes of shortness of breath Underlying history of Parkinson disease maintained on Levodopa/carbidopa pump Underlying history of Alzheimer's disease with dementia maintained on Aricept Underlying history of hyperlipidemia maintained on Lipitor At this time patient was seen and examined on the medical floor Home medications reviewed and reordered For DVT prophylaxis subcu Lovenox Pulmonary consultation and neurology consultation requested Will follow closely
[2023-09-10] MEDS: DONEPEZIL 10 MG TAB PO SCH (19:41)
[2023-09-10] MEDS: FLUoxetine HCL 20 MG CAP PO SCH (19:41)
[2023-09-10] MEDS: ASPIRIN 81 MG PO SCH (19:41)
[2023-09-10] MEDS: ATORVASTATIN 10 MG TAB PO SCH (19:41)
[2023-09-10] MEDS ORDERED: QUEtiapine 25 MG TAB PO STA (21:13)
[2023-09-10] MEDS ORDERED: LORazepam 2 MG/ML INJ IV STA (22:28)
[2023-09-11] MEDS ORDERED: HALOPERIDOL LACTATE 5 MG/ML 1 ML VIAL IM STA (01:59)
[2023-09-11] MEDS: HEPARIN SODIUM,PORCINE 5,000 UNIT/ML 1 ML VIAL SQ SCH ×2 (09:12→20:03)
[2023-09-11] MEDS: MULTIVITAMINS, THERA 1 EACH TAB PO SCH (09:12)
[2023-09-11] MEDS: metFORMIN 500 MG TAB PO SCH (09:12)
[2023-09-11] MEDS: CARBIDOPA MISCELLANE SCH (09:12)
[2023-09-11] MEDS: LEVODOPA MISCELLANE SCH (09:12)
[2023-09-11] MEDS: glipiZIDE 5 MG TAB PO SCH (09:12)
[2023-09-11 09:45] LABS: Basophils # (A) 0.04 X 10*3/uL (0.00-0.10); Basophils % (A) 0.3 %; Eosinophils # (A) 0.05 X 10*3/uL (0.04-0.35); Eosinophils % (A) 0.4 %; HCT 40.4 % (39.6-50.0); HGB 13.1 g/dL (13.0-17.0); Lymphocytes # (A) 1.18 X 10*3/uL (0.90-5.00); Lymphocytes % (A) 9.8 %; MCH 30.8 pg (27.0-32.0); MCHC 32.4 g/dL (32.0-37.0); MCV 94.8 FL (80.0-97.0); Mean Platelet Volume 10.4 FL (9.5-12.2); Monocytes # (A) 0.69 X 10*3/uL (0.20-1.00); Monocytes % (A) 5.8 %; NRBC Per 100 WBC 0 X 10*3/uL (0.00-0.01); Neutrophils # (A) 9.99 X 10*3/uL (1.80-7.70); Neutrophils % (A) 83.3 %; Platelet Count 225 X 10*3/uL (140-440); RBC 4.26 X 10*6/uL (4.40-5.60); RDW 13.1 % (11.5-14.5)
[2023-09-11] MEDS: SODIUM CHLORIDE 0.9% 1,000 ML IV SCH (10:38)
[2023-09-11 10:47] LABS: ALT 6 U/L (10-49); AST 61 U/L (14-35); Albumin 4.2 g/dL (3.8-4.9); Alkaline Phosphatase 78 U/L (41-126); BUN/Creat Ratio 15.69 Ratio (12.00-20.00); Blood Urea Nitrogen 20.4 mg/dL (9.0-27.0); Calcium 10.1 mg/dL (8.7-10.3); Carbon Dioxide 25.6 mmol/L (21.6-31.8); Chloride 101 mmol/L (96-109); Glucose 114 mg/dL (70-110); Sodium 140 mmol/L (135-145); Total Bilirubin 0.5 mg/dL (0.3-1.2); Total Protein 6.2 g/dL (6.2-8.2)
--- NOTE | 2023-09-11 11:06 | P.PN ---
Subjective Progress Note Date: 09/11/23 I am seeing this patient in new consultation today 09/08/2023 in the emergency room after he presented with episodic shortness of breath and "anxiety attacks". Patient is a 78-year-old white male with past medical history significant for moderate to severe Parkinson's disease with Doupa pump, dysphagia, dementia, recent diagnosis of diabetes, obstructive sleep apnea with CPAP. His PCP is Dr. Burton, and does follow with Dr. Galdamez. Patient provides very limited information. He is confused and only oriented to self. He appears weak and deconditioned. He lives at home with his . I did speak to the patient's over the phone. She states that he has had intermittent episodic episodes of shortness of breath over the last 2 months, and over the last 2 weeks he has become more weak, more confused than baseline, and having what she feels are anxiety attacks. This occur even at rest. She denies any other observable symptoms while at home. No witnessed aspiration. Denies any history of pulmonary disease. Does not smoke. No reported heart palpitations, syncopal episodes, or chest pain. Patient is currently lying in bed, sleeping, on room air. SpO2 is 95%. Not in any respiratory distress. He does have a resting tremor. Chest x- ray on arrival did not demonstrate any cardiopulmonary disease process. CBC on arrival is unremarkable. BMP on arrival also unremarkable. Normal saline is infusing at 75 mL per hour. Urinalysis not concerning for UTI. Lactic acid level 0.9. Negative for influenza, RSV, COVID-19. Afebrile. Vital signs are stable. He is being admitted to the general medical floor. The patient is seen today 09/09/2023 in follow-up on the regular medical floor. He is currently sitting up in bed. Awake and alert in no acute distress. Maintaining good O2 saturations in the 90s on room air. No IV fluids. Echocardiogram revealed preserved left ventricle systolic function with ejection fraction 55-60%. White count 7.8. Hemoglobin 12.8. Platelets 246. Sodium 141. Potassium 4.5. Bicarb 23. BUN 22. Creatinine 1.4. Glucose 98. He is continued on heparin for DVT prophylaxis. The patient is seen today 09/10/2023 in follow-up on the regular medical floor. He is currently sitting up in bed. Awake and alert. Somewhat confused to time and place. He is maintaining O2 saturations in the 90s on 2 L/m per nasal cannula. He has normal saline at 75 ML's per hour. Carotid Dopplers did not reveal any significant carotid artery stenosis. He remains on Aricept, Duopa, and Requip. Heparin for DVT prophylaxis. The patient is seen today 09/11/2023 in follow-up on the regular medical floor. He is awake and alert in no acute distress. Maintaining O2 saturations in the 90s on room air. He's afebrile. Hemodynamically stable. White count 12.0. Hemoglobin 13.1. Platelets 225. Sodium 140. Potassium 4.0. Bicarb 26. BUN 20. Creatinine 1.3. Glucose 114. He remains on Aricept, Duopa, and Requip. Heparin for DVT prophylaxis. Objective - Vital Signs Vital signs: Vital Signs Temp 98.0 F 09/11/23 07:00 Pulse 63 09/11/23 07:00 Resp 18 09/11/23 07:00 BP 163/70 09/11/23 07:00 Pulse Ox 95 09/11/23 07:00 FiO2 21 09/09/23 21:39 Intake & Output 09/10/23 09/11/23 09/11/23 18:59 06:59 18:59 Intake Total 240 120 Balance 240 120 Intake: Oral 240 120 Other: Voiding Method Toilet Toilet Toilet Diaper Diaper Diaper # Voids 1 1 - Exam GENERAL EXAM: Alert, 78-year-old male with flat affect, on room air, comfortable in no apparent distress. HEAD: Normocephalic and atraumatic EYES: Normal reaction of pupils, equal size. NOSE: Clear with pink turbinates. THROAT: No erythema or exudates. NECK: No masses, no JVD. CHEST: No chest wall deformity. LUNGS: Equal air entry with no crackles, wheeze, rhonchi or dullness. No conversational dyspnea. CVS: S1 and S2 normal with no audible murmur, regular rhythm. No extra heart sounds ABDOMEN: No hepatosplenomegaly, active bowel sounds, no guarding or rigidity. Duo pump insertion site is clean and dry. SPINE: No scoliosis or deformity SKIN: No rashes CENTRAL NERVOUS SYSTEM: No focal deficits, tone is normal in all 4 extremities. Generalized resting tremor EXTREMITIES: Rigidity. There is no peripheral edema, clubbing, or cyanosis. Peripheral pulses are intact. - Labs CBC & Chem 7: 09/11/23 06:14 09/11/23 06:14 Labs: Abnormal Lab Results - Last 24 Hours (Table) 09/11/23 09/11/23 Range/Units 06:14 06:14 WBC 12.00 H (4.50-10.00) X 10*3/uL RBC 4.26 L (4.40-5.60) X 10*6/uL Neutrophils # 9.99 H (1.80-7.70) X 10*3/uL Anion Gap 13.40 H (4.00-12.00) mmol/L Est GFR (CKD-EPI) 57 L (>=60) Glucose 114 H (70-110) mg/dL AST 61 H (14-35) U/L ALT 6 L (10-49) U/L Assessment and Plan Assessment: Episodic dyspnea, under investigation. Chest x-ray did not show any acute cardiopulmonary process. No history of pulmonary disease. Negative for influenza, RSV, COVID-19 Moderate to severe progression of Parkinson's disease Dementia, on Aricept Possible anxiety Diabetes mellitus type 2, recently started on metformin outpatient Hyperlipidemia History of Mota Parkinson White, previous cardiac ablation Obstructive sleep apnea, on CPAP at home Plan: The patient was seen and evaluated Labs and medications reviewed Stable and on room air Discharge planning in place This patient was seen independently by the nurse practitioner I have personally seen and examined the patient, performed the documentation and the assessment and plan as written. Number of minutes spent on the visit: 20.
--- NOTE | 2023-09-11 11:34 | P.PN ---
Progress Note - Text Progress Note Date: 09/11/23 Subjective Progress Note Date: 09/11/23 Birgit Huff, is a 78-year-old male who presented to [facility] emergency room with multiple medical problems, per his at the bedside, patient was having episodes of shaking, episodes of shortness of breath, and generalized weakness, she was concerned that patient may have seizures so she called EMS. Patient has a known history of advanced Parkinson disease, he has a carbidopa/levodopa pump, he also has a known history of diabetes mellitus, Alzheimer disease with dementia, and hyperlipidemia. He was evaluated in the emergency room vital examination on presentation revealed a temperature of 98 pulse 72 respiration 20 blood pressure 161/80 pulse ox 96% on room air Laboratory data revealed a white blood count of 8.0 hemoglobin 13.2 platelet count 223 sodium 135 potassium 4.5 chloride 99 CO2 26 BUN 28 creatinine 1.08 Testing in the emergency room revealed EKG revealed sinus rhythm normal EKG, chest x-ray revealed normal chest. Patient was admitted to medical floor for further evaluation and treatment On 09/09/2023 patient is alert and oriented 3. Awaiting neurology input 2-D echo completed awaiting reading. Patient reports improvement with shortness of breath. Vital signs temp 97.7, heart rate 71, respiratory rate 16, blood pressure 158/65 with pulse ox of 94%. Patient denies chest pain or shortness breath. Patient denies nausea vomiting or diarrhea. Patient denies any urinary burning or frequency. On 09/10/2023 patient was seen and examined on the medical floor he is alert and oriented 3 in no apparent distress, patient is complaining of extreme weakness with inability to stand or walk, there is no fever or chills no headache or dizziness no chest pain no shortness of breath no cough no nausea or vomiting no abdominal pain no diarrhea and no urinary symptoms. Physical therapy and occupational therapy consult requested.. Possibility of going home discussed with patient and in details, patient is having significant weakness and is stating that she is not able to take care for him at home , they are requesting evaluation by physical therapy, will follow closely on 09/11/2023 patient had increased agitation throughout night and was comba tive with staff. Patient required Ativan and Haldol and Seroquel. Will schedule routine Seroquel per night and Ativan when necessary patient appears to have returned to baseline this a.m. Likely sundowners. Patient will likely need rehab upon discharge. Current vital signs temp 98.0, heart rate 63, respiratory rate 18, blood pressure 163/70 with pulse ox of 95% on room air Objective - Vital Signs Vital signs: Vital Signs Temp 98.0 F 09/11/23 07:00 Pulse 63 09/11/23 07:00 Resp 18 09/11/23 07:00 BP 163/70 09/11/23 07:00 Pulse Ox 95 09/11/23 07:00 FiO2 21 09/09/23 21:39 Intake & Output 09/10/23 09/11/23 09/11/23 18:59 06:59 18:59 Intake Total 240 120 Balance 240 120 Intake: Oral 240 120 Other: Voiding Method Toilet Toilet Toilet Diaper Diaper Diaper # Voids 1 1 - Exam In general patient is alert and oriented x 3 in no distress HEENT head normocephalic and atraumatic Neck is supple no JVD no goiter no lymphadenopathy no carotid bruit Chest examination is clear to auscultation no crackles no wheezing Cardiac exam reveals regular heart sounds S1 and S2 no gallops no murmurs Abdomen is soft nontender no organomegaly with normal bowel sounds Extremity exam reveals no edema no cyanosis or clubbing Neurological examination reveals no gross focal deficit - Labs CBC & Chem 7: 09/11/23 06:14 09/11/23 06:14 Labs: Abnormal Lab Results - Last 24 Hours (Table) 09/11/23 09/11/23 Range/Units 06:14 06:14 WBC 12.00 H (4.50-10.00) X 10*3/uL RBC 4.26 L (4.40-5.60) X 10*6/uL Neutrophils # 9.99 H (1.80-7.70) X 10*3/uL Anion Gap 13.40 H (4.00-12.00) mmol/L Est GFR (CKD-EPI) 57 L (>=60) Glucose 114 H (70-110) mg/dL AST 61 H (14-35) U/L ALT 6 L (10-49) U/L Assessment and Plan Assessment: Generalized weakness Episodes of shaking rule out seizure activity Episodes of shortness of breath Underlying history of Parkinson disease maintained on Levodopa/carbidopa pump Underlying history of Alzheimer's disease with dementia maintained on Aricept Underlying history of hyperlipidemia maintained on Lipitor Increased confusion at night. Seroquel added At this time patient was seen and examined on the medical floor Home medications reviewed and reordered For DVT prophylaxis subcu Lovenox Pulmonary consultation and neurology consultation requested Will follow closel
[2023-09-11] MEDS: DONEPEZIL 10 MG TAB PO SCH (20:02)
[2023-09-11] MEDS: QUEtiapine 25 MG TAB PO SCH (20:02)
[2023-09-11] MEDS: ASPIRIN 81 MG PO SCH (20:02)
[2023-09-11] MEDS: FLUoxetine HCL 20 MG CAP PO SCH (20:03)
[2023-09-11] MEDS: ATORVASTATIN 10 MG TAB PO SCH (20:03)
[2023-09-11] MEDS: LORazepam 2 MG/ML INJ IV PRN (22:04)
[2023-09-12] MEDS: LORazepam 2 MG/ML INJ IV PRN ×2 (03:17→14:47)
--- NOTE | 2023-09-12 08:37 | XR ---
EXAMINATION TYPE: XR chest 1V portable DATE OF EXAM: 09/12/2023 COMPARISON: 09/08/2023 HISTORY: Shortness of breath TECHNIQUE: Single frontal view of the chest is obtained. FINDINGS: A limited inspiration with bilateral consolidation. No pneumothorax. No overt failure. Dif fuse osteopenia. IMPRESSION: Basilar atelectasis versus early infiltrate.
[2023-09-12] MEDS: HEPARIN SODIUM,PORCINE 5,000 UNIT/ML 1 ML VIAL SQ SCH ×2 (10:15→20:50)
[2023-09-12] MEDS: MULTIVITAMINS, THERA 1 EACH TAB PO SCH (10:15)
[2023-09-12] MEDS: metFORMIN 500 MG TAB PO SCH (10:15)
[2023-09-12] MEDS: LEVODOPA MISCELLANE SCH (10:17)
[2023-09-12] MEDS: CARBIDOPA MISCELLANE SCH (10:17)
[2023-09-12] MEDS: glipiZIDE 5 MG TAB PO SCH (10:20)
[2023-09-12 10:42] LABS: Basophils # (A) 0.04 X 10*3/uL (0.00-0.10); Basophils % (A) 0.5 %; Eosinophils # (A) 0.11 X 10*3/uL (0.04-0.35); Eosinophils % (A) 1.3 %; HCT 40.9 % (39.6-50.0); HGB 13.2 g/dL (13.0-17.0); Lymphocytes # (A) 1.51 X 10*3/uL (0.90-5.00); Lymphocytes % (A) 18.4 %; MCHC 32.3 g/dL (32.0-37.0); Mean Platelet Volume 10.1 FL (9.5-12.2); Monocytes # (A) 0.65 X 10*3/uL (0.20-1.00); Monocytes % (A) 7.9 %; NRBC Per 100 WBC 0 X 10*3/uL (0.00-0.01); Neutrophils # (A) 5.86 X 10*3/uL (1.80-7.70); Neutrophils % (A) 71.4 %; Platelet Count 213 X 10*3/uL (140-440); RBC 4.26 X 10*6/uL (4.40-5.60); RDW 13.2 % (11.5-14.5); WBC 8.21 X 10*3/uL (4.50-10.00)
[2023-09-12 11:02] LABS: ALT 8 U/L (10-49); AST 52 U/L (14-35); Albumin 4.1 g/dL (3.8-4.9); Albumin/Globulin Ratio 2.28 Ratio (1.60-3.17); Alkaline Phosphatase 72 U/L (41-126); Blood Urea Nitrogen 24.7 mg/dL (9.0-27.0); Calcium 9.8 mg/dL (8.7-10.3); Carbon Dioxide 26.6 mmol/L (21.6-31.8); Chloride 104 mmol/L (96-109); Globulin 1.8 g/dL (1.6-3.3); Glucose 91 mg/dL (70-110); Sodium 141 mmol/L (135-145); Total Bilirubin 0.5 mg/dL (0.3-1.2); Total Protein 5.9 g/dL (6.2-8.2)
--- NOTE | 2023-09-12 16:05 | P.PN ---
Subjective Progress Note Date: 09/12/23 I am seeing this patient in new consultation today 09/08/2023 in the emergency room after he presented with episodic shortness of breath and "anxiety attacks". Patient is a 78--old white male with past medical history significant for moderate to severe Parkinson's disease with Doupa pump, dysphagia, dementia, recent diagnosis of diabetes, obstructive sleep apnea with CPAP. His PCP is Dr. Burton, and does follow with Dr. Galdamez. Patient provides very limited information. He is confused and only oriented to self. He appears weak and deconditioned. He lives at home with his . I did speak to the patient's over the phone. She states that he has had intermittent episodic episodes of shortness of breath over the last 2 months, and over the last 2 weeks he has become more weak, more confused than baseline, and having what she feels are anxiety attacks. This occur even at rest. She denies any other observable symptoms while at home. No witnessed aspiration. Denies any history of pulmonary disease. Does not smoke. No reported heart palpitations, syncopal episodes, or chest pain. Patient is currently lying in bed, sleeping, on room air. SpO2 is 95%. Not in any respiratory distress. He does have a resting tremor. Chest x- ray on arrival did not demonstrate any cardiopulmonary disease process. CBC on arrival is unremarkable. BMP on arrival also unremarkable. Normal saline is infusing at 75 mL per hour. Urinalysis not concerning for UTI. Lactic acid level 0.9. Negative for influenza, RSV, COVID-19. Afebrile. Vital signs are stable. He is being admitted to the general medical floor. The patient is seen today 09/09/2023 in follow-up on the regular medical floor. He is currently sitting up in bed. Awake and alert in no acute distress. Maintaining good O2 saturations in the 90s on room air. No IV fluids. Echocardiogram revealed preserved left ventricle systolic function with ejection fraction 55-60%. White count 7.8. Hemoglobin 12.8. Platelets 246. Sodium 141. Potassium 4.5. Bicarb 23. BUN 22. Creatinine 1.4. Glucose 98. He is continued on heparin for DVT prophylaxis. The patient is seen today 09/10/2023 in follow-up on the regular medical floor. He is currently sitting up in bed. Awake and alert. Somewhat confused to time and place. He is maintaining O2 saturations in the 90s on 2 L/m per nasal cannula. He has normal saline at 75 ML's per hour. Carotid Dopplers did not reveal any significant carotid artery stenosis. He remains on Aricept, Duopa, and Requip. Heparin for DVT prophylaxis. The patient is seen today 09/11/2023 in follow-up on the regular medical floor. He is awake and alert in no acute distress. Maintaining O2 saturations in the 90s on room air. He's afebrile. Hemodynamically stable. White count 12.0. Hemoglobin 13.1. Platelets 225. Sodium 140. Potassium 4.0. Bicarb 26. BUN 20. Creatinine 1.3. Glucose 114. He remains on Aricept, Duopa, and Requip. Heparin for DVT prophylaxis. On 09/12/2023, no new complaints and the patient is delirious and confused. He does have underlying dementia. He also has moderate severe Parkinson's disease. He is on room air oxygen. Family is at the bedside. Present LV function based on the recent echocardiogram. Chest x-ray showed some atelectatic changes in the lung bases bilaterally. WBC count is at 8.2 with a hemoglobin of 13.2. BUN is at 24 with a creatinine of 1.3 and sodium levels of 141. LFTs are slightly elevated with an AST of 52, ALT of 8 and bilirubin level of 0.5. The viral screening was negative. No reported aspiration. The patient is on Aricept. The patient is also on several 25 mg at bedtime. Objective - Vital Signs Vital signs: Vital Signs Temp 97.6 F 09/12/23 15:00 Pulse 58 L 09/12/23 15:00 Resp 15 09/12/23 15:00 BP 126/60 09/12/23 15:00 Pulse Ox 97 09/12/23 15:00 FiO2 21 09/09/23 21:39 Intake & Output 09/11/23 09/12/23 09/12/23 18:59 06:59 18:59 Intake Total 240 358 Output Total 0 Balance 240 0 358 Intake: Oral 240 358 Output: Urine 0 Other: Voiding Method Toilet Toilet Toilet Diaper Diaper Diaper # Voids 2 1 1 # Bowel Movements 0 0 - Exam GENERAL EXAM: Alert, 78-year-old male with flat affect, on room air, comfortable in no apparent distress. The patient is being sent confused HEAD: Normocephalic and atraumatic EYES: Normal reaction of pupils, equal size. NOSE: Clear with pink turbinates. THROAT: No erythema or exudates. NECK: No masses, no JVD. CHEST: No chest wall deformity. LUNGS: Equal air entry with no crackles, wheeze, rhonchi or dullness. No conversational dyspnea. CVS: S1 and S2 normal with no audible murmur, regular rhythm. No extra heart sounds ABDOMEN: No hepatosplenomegaly, active bowel sounds, no guarding or rigidity. Duo pump insertion site is clean and dry. SPINE: No scoliosis or deformity SKIN: No rashes CENTRAL NERVOUS SYSTEM: No focal deficits, tone is normal in all 4 extremities. Generalized resting tremor EXTREMITIES: Rigidity. There is no peripheral edema, clubbing, or cyanosis. Peripheral pulses are intact. - Labs CBC & Chem 7: 09/12/23 06:55 09/12/23 06:55 Labs: Abnormal Lab Results - Last 24 Hours (Table) 09/12/23 09/12/23 Range/Units 06:55 06:55 RBC 4.26 L (4.40-5.60) X 10*6/uL Est GFR (CKD-EPI) 57 L (>=60) AST 52 H (14-35) U/L ALT 8 L (10-49) U/L Total Protein 5.9 L (6.2-8.2) g/dL Assessment and Plan Plan: Episodic dyspnea, under investigation. Chest x-ray did not show any acute cardiopulmonary process. No history of pulmonary disease. Negative for influenza, RSV, COVID-19, agreed to the fact that there is no active pulmonary pathology at this point in time Delirium with underlying dementia Moderate to severe progression of Parkinson's disease Dementia, on Aricept Possible anxiety Diabetes mellitus type 2, recently started on metformin outpatient Hyperlipidemia History of Mota Parkinson White, previous cardiac ablation Obstructive sleep apnea, on CPAP at home Plan: Difficult for this patient to utilize CPAP in the hospital Labs are adequate Chest x-rays adequate and the patient is on room air oxygen Stable and on room air Discharge planning in place
--- NOTE | 2023-09-12 18:00 | P.PN ---
Subjective Progress Note Date: 09/12/23 Birgit Huff, is a 78-year-old male who presented to [facility] emergency room with multiple medical problems, per his at the bedside, patient was having episodes of shaking, episodes of shortness of breath, and generalized weakness, she was concerned that patient may have seizures so she called EMS. Patient has a known history of advanced Parkinson disease, he has a carbidopa/levodopa pump, he also has a known history of diabetes mellitus, Alzheimer disease with dementia, and hyperlipidemia. He was evaluated in the emergency room vital examination on presentation revealed a temperature of 98 pulse 72 respiration 20 blood pressure 161/80 pulse ox 96% on room air Laboratory data revealed a white blood count of 8.0 hemoglobin 13.2 platelet count 223 sodium 135 potassium 4.5 chloride 99 CO2 26 BUN 28 creatinine 1.08 Testing in the emergency room revealed EKG revealed sinus rhythm normal EKG, chest x-ray revealed normal chest. Patient was admitted to medical floor for further evaluation and treatment On 09/09/2023 patient is alert and oriented 3. Awaiting neurology input 2-D echo completed awaiting reading. Patient reports improvement with shortness of breath. Vital signs temp 97.7, heart rate 71, respiratory rate 16, blood pressure 158/65 with pulse ox of 94%. Patient denies chest pain or shortness breath. Patient denies nausea vomiting or diarrhea. Patient denies any urinary burning or frequency. On 09/10/2023 patient was seen and examined on the medical floor he is alert and oriented 3 in no apparent distress, patient is complaining of extreme weakness with inability to stand or walk, there is no fever or chills no headache or dizziness no chest pain no shortness of breath no cough no nausea or vomiting no abdominal pain no diarrhea and no urinary symptoms. Physical therapy and occupational therapy consult requested.. Possibility of going home discussed with patient and in details, patient is having significant weakness and is stating that she is not able to take care for him at home , they are requesting evaluation by physical therapy, will follow closely. on 09/11/2023 patient had increased agitation throughout night and was combative with staff. Patient required Ativan and Haldol and Seroquel. Will schedule routine Seroquel per night and Ativan when necessary patient appears to have returned to baseline this a.m. Likely . Patient will likely need rehab upon discharge. Current vital signs temp 98.0, heart rate 63, respiratory rate 18, blood pressure 163/70 with pulse ox of 95% on room air On 09/12/2023 patient was seen and examined on the medical floor he is alert slightly confused in no apparent distress he is receiving Seroquel at bedtime and when necessary Ativan EEG was done today results are still pending physical therapy and occupational therapy are consulted will assess if patient can go back home or need to go to a correction for rehab. Objective - Vital Signs Vital signs: Vital Signs Temp 97.6 F 09/12/23 15:00 Pulse 58 L 09/12/23 15:00 Resp 15 09/12/23 15:00 BP 126/60 09/12/23 15:00 Pulse Ox 97 09/12/23 15:00 FiO2 21 09/09/23 21:39 Intake & Output 09/11/23 09/12/23 09/12/23 18:59 06:59 18:59 Intake Total 240 358 Output Total 0 Balance 240 0 358 Intake: Oral 240 358 Output: Urine 0 Other: Voiding Method Toilet Toilet Toilet Diaper Diaper Diaper # Voids 2 1 1 # Bowel Movements 0 0 - Exam In general patient is alert and oriented x 3 in no distress HEENT head normocephalic and atraumatic Neck is supple no JVD no goiter no lymphadenopathy no carotid bruit Chest examination is clear to auscultation no crackles no wheezing Cardiac exam reveals regular heart sounds S1 and S2 no gallops no murmurs Abdomen is soft nontender no organomegaly with normal bowel sounds Extremity exam reveals no edema no cyanosis or clubbing Neurological examination reveals no gross focal deficits - Labs CBC & Chem 7: 09/12/23 06:55 09/12/23 06:55 Labs: Abnormal Lab Results - Last 24 Hours (Table) 09/12/23 09/12/23 Range/Units 06:55 06:55 RBC 4.26 L (4.40-5.60) X 10*6/uL Est GFR (CKD-EPI) 57 L (>=60) AST 52 H (14-35) U/L ALT 8 L (10-49) U/L Total Protein 5.9 L (6.2-8.2) g/dL Assessment and Plan Plan: Generalized weakness Episodes of shaking rule out seizure activity Episodes of shortness of breath Underlying history of Parkinson disease maintained on Levodopa/carbidopa pump Underlying history of Alzheimer's disease with dementia maintained on Aricept Underlying history of hyperlipidemia maintained on Lipitor At this time patient was seen and examined on the medical floor Home medications reviewed and reordered For DVT prophylaxis subcu Lovenox Pulmonary consultation and neurology consultation requested Will follow closely
[2023-09-12] MEDS: FLUoxetine HCL 20 MG CAP PO SCH (20:49)
[2023-09-12] MEDS: ATORVASTATIN 10 MG TAB PO SCH (20:49)
[2023-09-12] MEDS: ASPIRIN 81 MG PO SCH (20:49)
[2023-09-12] MEDS: QUEtiapine 25 MG TAB PO SCH (20:49)
[2023-09-12] MEDS: DONEPEZIL 10 MG TAB PO SCH (20:49)
[2023-09-13] MEDS: LORazepam 2 MG/ML INJ IV PRN (00:28)
--- NOTE | 2023-09-13 01:35 | EEG ---
ELECTROENCEPHALOGRAM REPORT CLINICAL HISTORY: This is a 78-year-old gentleman with near syncope. The video EEG is obtained to evaluate for seizure epileptiform activity. RELEVANT MEDICATION: Ativan. EEG TYPE: This is a routine 21-channel EEG using the 10/20 electrode placement system. DESCRIPTION: Wakefulness and drowsiness are obtained. During awake state, the posterior- dominant rhythm consists of [id number] voltage of 6.5 to 7.5 hertz activity. There is no physiological stage 2 sleep architecture. There is no focal slowing. Interictal and ictal is none. ACTIVATION PROCEDURE: Photic stimulation and hyperventilation is not performed. CLINICAL INTERPRETATION: This is an abnormal routine EEG. The background slowing is suggestive of mild encephalopathy. Otherwise, there is no focal slowing, epileptiform discharges, or seizure on the EEG. Clinical correlation is recommended. JOVI / JADE: [id number] / MTDD
[2023-09-13 09:27] VITALS: BP 164/87; PULSE 69; RESP 14; TEMP 97.7
--- NOTE | 2023-09-13 10:11 | P.PN ---
Subjective Progress Note Date: 09/13/23 Birgit Huff, is a 78-year-old male who presented to [facility] emergency room with multiple medical problems, per his at the bedside, patient was having episodes of shaking, episodes of shortness of breath, and generalized weakness, she was concerned that patient may have seizures so she called EMS. Patient has a known history of advanced Parkinson disease, he has a carbidopa/levodopa pump, he also has a known history of diabetes mellitus, Alzheimer disease with dementia, and hyperlipidemia. He was evaluated in the emergency room vital examination on presentation revealed a temperature of 98 pulse 72 respiration 20 blood pressure 161/80 pulse ox 96% on room air Laboratory data revealed a white blood count of 8.0 hemoglobin 13.2 platelet count 223 sodium 135 potassium 4.5 chloride 99 CO2 26 BUN 28 creatinine 1.08 Testing in the emergency room revealed EKG revealed sinus rhythm normal EKG, chest x-ray revealed normal chest. Patient was admitted to medical floor for further evaluation and treatment On 09/09/2023 patient is alert and oriented 3. Awaiting neurology input 2-D echo completed awaiting reading. Patient reports improvement with shortness of breath. Vital signs temp 97.7, heart rate 71, respiratory rate 16, blood pressure 158/65 with pulse ox of 94%. Patient denies chest pain or shortness breath. Patient denies nausea vomiting or diarrhea. Patient denies any urinary burning or frequency. On 09/10/2023 patient was seen and examined on the medical floor he is alert and oriented 3 in no apparent distress, patient is complaining of extreme weakness with inability to stand or walk, there is no fever or chills no headache or dizziness no chest pain no shortness of breath no cough no nausea or vomiting no abdominal pain no diarrhea and no urinary symptoms. Physical therapy and occupational therapy consult requested.. Possibility of going home discussed with patient and in details, patient is having significant weakness and is stating that she is not able to take care for him at home , they are requesting evaluation by physical therapy, will follow closely. on 09/11/2023 patient had increased agitation throughout night and was combative with staff. Patient required Ativan and Haldol and Seroquel. Will schedule routine Seroquel per night and Ativan when necessary patient appears to have returned to baseline this a.m. Likely . Patient will likely need rehab upon discharge. Current vital signs temp 98.0, heart rate 63, respiratory rate 18, blood pressure 163/70 with pulse ox of 95% on room air On 09/12/2023 patient was seen and examined on the medical floor he is alert slightly confused in no apparent distress he is receiving Seroquel at bedtime and when necessary Ativan EEG was done today results are still pending physical therapy and occupational therapy are consulted will assess if patient can go back home or need to go to a correction for rehab. On 09/13/2023 patient is currently resting in bed remains slightly confused. Discussed with case management rehab versus home. EEG was completed. Awaiting neurology input. Patient denies chest pain or shortness of breath. Patient denies nausea vomiting or diarrhea. Patient denies any urinary burning or frequency Objective - Vital Signs Vital signs: Vital Signs Temp 97.7 F 09/13/23 07:00 Pulse 69 09/13/23 07:00 Resp 14 09/13/23 07:00 BP 164/87 09/13/23 07:00 Pulse Ox 96 09/13/23 07:00 FiO2 21 09/09/23 21:39 Intake & Output 09/12/23 09/13/23 09/13/23 18:59 06:59 18:59 Intake Total 598 Balance 598 Intake: Oral 598 Other: Voiding Method Toilet Toilet Diaper Diaper # Voids 1 3 - Exam In general patient is alert and oriented x 3 in no distress HEENT head normocephalic and atraumatic Neck is supple no JVD no goiter no lymphadenopathy no carotid bruit Chest examination is clear to auscultation no crackles no wheezing Cardiac exam reveals regular heart sounds S1 and S2 no gallops no murmurs Abdomen is soft nontender no organomegaly with normal bowel sounds Extremity exam reveals no edema no cyanosis or clubbing Neurological examination reveals no gross focal deficits - Labs CBC & Chem 7: 09/12/23 06:55 09/12/23 06:55 Labs: Abnormal Lab Results - Last 24 Hours (Table) 09/12/23 12 Range/Units 06:55 06:55 RBC 4.26 L (4.40-5.60) X 10*6/uL Est GFR (CKD-EPI) 57 L (>=60) AST 52 H (14-35) U/L ALT 8 L (10-49) U/L Total Protein 5.9 L (6.2-8.2) g/dL Assessment and Plan Plan: Generalized weakness Episodes of shaking rule out seizure activity Episodes of shortness of breath Underlying history of Parkinson disease maintained on Levodopa/carbidopa pump Underlying history of Alzheimer's disease with dementia maintained on Aricept Underlying history of hyperlipidemia maintained on Lipitor At this time patient was seen and examined on the medical floor Home medications reviewed and reordered For DVT prophylaxis subcu Lovenox Pulmonary consultation and neurology consultation requested Will follow closely
[2023-09-13] MEDS: HEPARIN SODIUM,PORCINE 5,000 UNIT/ML 1 ML VIAL SQ SCH (10:44)
[2023-09-13] MEDS: LEVODOPA MISCELLANE SCH (10:44)
[2023-09-13] MEDS: glipiZIDE 5 MG TAB PO SCH (10:44)
[2023-09-13] MEDS: CARBIDOPA MISCELLANE SCH (10:44)
[2023-09-13] MEDS: MULTIVITAMINS, THERA 1 EACH TAB PO SCH (10:45)
[2023-09-13] MEDS: metFORMIN 500 MG TAB PO SCH (10:45)
--- NOTE | 2023-09-13 13:21 | P.PN ---
Subjective Progress Note Date: 09/13/23 I am seeing this patient in new consultation today 09/08/2023 in the emergency room after he presented with episodic shortness of breath and "anxiety attacks". Patient is a 78--old white male with past medical history significant for moderate to severe Parkinson's disease with Doupa pump, dysphagia, dementia, recent diagnosis of diabetes, obstructive sleep apnea with CPAP. His PCP is Dr. Burton, and does follow with Dr. Galdamez. Patient provides very limited information. He is confused and only oriented to self. He appears weak and deconditioned. He lives at home with his . I did speak to the patient's over the phone. She states that he has had intermittent episodic episodes of shortness of breath over the last 2 months, and over the last 2 weeks he has become more weak, more confused than baseline, and having what she feels are anxiety attacks. This occur even at rest. She denies any other observable symptoms while at home. No witnessed aspiration. Denies any history of pulmonary disease. Does not smoke. No reported heart palpitations, syncopal episodes, or chest pain. Patient is currently lying in bed, sleeping, on room air. SpO2 is 95%. Not in any respiratory distress. He does have a resting tremor. Chest x- ray on arrival did not demonstrate any cardiopulmonary disease process. CBC on arrival is unremarkable. BMP on arrival also unremarkable. Normal saline is infusing at 75 mL per hour. Urinalysis not concerning for UTI. Lactic acid level 0.9. Negative for influenza, RSV, COVID-19. Afebrile. Vital signs are stable. He is being admitted to the general medical floor. The patient is seen today 09/09/2023 in follow-up on the regular medical floor. He is currently sitting up in bed. Awake and alert in no acute distress. Maintaining good O2 saturations in the 90s on room air. No IV fluids. Echocardiogram revealed preserved left ventricle systolic function with ejection fraction 55-60%. White count 7.8. Hemoglobin 12.8. Platelets 246. Sodium 141. Potassium 4.5. Bicarb 23. BUN 22. Creatinine 1.4. Glucose 98. He is continued on heparin for DVT prophylaxis. The patient is seen today 09/10/2023 in follow-up on the regular medical floor. He is currently sitting up in bed. Awake and alert. Somewhat confused to time and place. He is maintaining O2 saturations in the 90s on 2 L/m per nasal cannula. He has normal saline at 75 ML's per hour. Carotid Dopplers did not reveal any significant carotid artery stenosis. He remains on Aricept, Duopa, and Requip. Heparin for DVT prophylaxis. The patient is seen today 09/11/2023 in follow-up on the regular medical floor. He is awake and alert in no acute distress. Maintaining O2 saturations in the 90s on room air. He's afebrile. Hemodynamically stable. White count 12.0. Hemoglobin 13.1. Platelets 225. Sodium 140. Potassium 4.0. Bicarb 26. BUN 20. Creatinine 1.3. Glucose 114. He remains on Aricept, Duopa, and Requip. Heparin for DVT prophylaxis. On 09/12/2023, no new complaints and the patient is delirious and confused. He does have underlying dementia. He also has moderate severe Parkinson's disease. He is on room air oxygen. Family is at the bedside. Present LV function based on the recent echocardiogram. Chest x-ray showed some atelectatic changes in the lung bases bilaterally. WBC count is at 8.2 with a hemoglobin of 13.2. BUN is at 24 with a creatinine of 1.3 and sodium levels of 141. LFTs are slightly elevated with an AST of 52, ALT of 8 and bilirubin level of 0.5. The viral screening was negative. No reported aspiration. The patient is on Aricept. The patient is also on several 25 mg at bedtime. On today's evaluation of 09/13/2023, no new complaints. The patient has no respiratory difficulties. Patient remains on room air oxygen. He remains confused. is at the bedside. He does have adequate 25 mg at bedtime. He is also on Aricept. No new labs from today. Labs from yesterday were noted. The cultures are all negative. Objective - Vital Signs Vital signs: Vital Signs Temp 97.7 F 09/13/23 07:00 Pulse 69 09/13/23 07:00 Resp 14 09/13/23 07:00 BP 164/87 09/13/23 07:00 Pulse Ox 96 09/13/23 07:00 FiO2 21 09/09/23 21:39 Intake & Output 12/01/3009/13/23 09/13/23 18:59 06:59 18:59 Intake Total 598 Balance 598 Intake: Oral 598 Other: Voiding Method Toilet Toilet Diaper Diaper # Voids 1 3 - Exam GENERAL EXAM: Alert, 78-year-old male with flat affect, on room air, comfortable in no apparent distress. The patient is being sent confused HEAD: Normocephalic and atraumatic EYES: Normal reaction of pupils, equal size. NOSE: Clear with pink turbinates. THROAT: No erythema or exudates. NECK: No masses, no JVD. CHEST: No chest wall deformity. LUNGS: Equal air entry with no crackles, wheeze, rhonchi or dullness. No conversational dyspnea. CVS: S1 and S2 normal with no audible murmur, regular rhythm. No extra heart sounds ABDOMEN: No hepatosplenomegaly, active bowel sounds, no guarding or rigidity. Duo pump insertion site is clean and dry. SPINE: No scoliosis or deformity SKIN: No rashes CENTRAL NERVOUS SYSTEM: No focal deficits, tone is normal in all 4 extremities. Generalized resting tremor EXTREMITIES: Rigidity. There is no peripheral edema, clubbing, or cyanosis. Peripheral pulses are intact. - Labs CBC & Chem 7: 09/12/23 06:55 09/12/23 06:55 Assessment and Plan Plan: Episodic dyspnea, under investigation. Chest x-ray did not show any acute cardiopulmonary process. No history of pulmonary disease. Negative for influen za, RSV, COVID-19, agreed to the fact that there is no active pulmonary pathology at this point in time Delirium with underlying dementia Moderate to severe progression of Parkinson's disease Dementia, on Aricept Possible anxiety Diabetes mellitus type 2, recently started on metformin outpatient Hyperlipidemia History of Mota Parkinson White, previous cardiac ablation Obstructive sleep apnea, on CPAP at home Plan: Stable respiratory status No active issues other than some confusion and delirium Maintained on Seroquel Difficult for this patient to utilize CPAP in the hospital Labs are adequate Chest x-rays adequate and the patient is on room air oxygen Stable and on room air Discharge planning in place
--- NOTE | 2023-09-13 13:27 | P.DS ---
Providers Date of admission: 09/08/23 01:19 Expected date of discharge: 09/13/23 Attending physician: Stalin Levy Consults: 09/08/23 01:17 Consult Physician Routine Consulting Provider: Dev Garber Consult Reason/Comments: JAMEY, intermittent chronic dyspnea Do you want consulting provider notified?: Yes 09/08/23 12:56 Consult Physician Routine Consulting Provider: Hilario Smith Consult Reason/Comments: weakness, parkinson disease Do you want consulting provider notified?: Yes Primary care physician: Angeli Burton [facility] Course: Diagnosis on discharge: Generalized weakness Episodes of shaking rule out seizure activity, EEG done, no evidence of seizure activity, patient evaluated by neurology. Episodes of shortness of breath Underlying history of Parkinson disease maintained on Levodopa/carbidopa pump Underlying history of Alzheimer's disease with dementia maintained on Aricept Underlying history of hyperlipidemia maintained on Lipitor Hospital course: Birgit Huff, is a 78-year-old male who presented to [facility] emergency room with multiple medical problems, per his at the bedside, patient was having episodes of shaking, episodes of shortness of breath, and generalized weakness, she was concerned that patient may have seizures so she called EMS. Patient has a known history of advanced Parkinson disease, he has a carbidopa/levodopa pump, he also has a known history of diabetes mellitus, Alzheimer disease with dementia, and hyperlipidemia. He was evaluated in the emergency room vital examination on presentation revealed a temperature of 98 pulse 72 respiration 20 blood pressure 161/80 pulse ox 96% on room air Laboratory data revealed a white blood count of 8.0 hemoglobin 13.2 platelet count 223 sodium 135 potassium 4.5 chloride 99 CO2 26 BUN 28 creatinine 1.08 Testing in the emergency room revealed EKG revealed sinus rhythm normal EKG, chest x-ray revealed normal chest. Patient was admitted to medical floor for further evaluation and treatment On 09/09/2023 patient is alert and oriented 3. Awaiting neurology input 2-D echo completed awaiting reading. Patient reports improvement with shortness of breath. Vital signs temp 97.7, heart rate 71, respiratory rate 16, blood pressure 158/65 with pulse ox of 94%. Patient denies chest pain or shortness breath. Patient denies nausea vomiting or diarrhea. Patient denies any urinary burning or frequency. On 09/10/2023 patient was seen and examined on the medical floor he is alert and oriented 3 in no apparent distress, patient is complaining of extreme weakness with inability to stand or walk, there is no fever or chills no headache or dizziness no chest pain no shortness of breath no cough no nausea or vomiting no abdominal pain no diarrhea and no urinary symptoms. Physical therapy and occupational therapy consult requested.. Possibility of going home discussed with patient and in details, patient is having significant weakness and is stating that she is not able to take care for him at home , they are requesting evaluation by physical therapy, will follow closely. on 09/11/2023 patient had increased agitation throughout night and was combative with staff. Patient required Ativan and Haldol and Seroquel. Will schedule routine Seroquel per night and Ativan when necessary patient appears to have returned to baseline this a.m. Likely . Patient will likely need rehab upon discharge. Current vital signs temp 98.0, heart rate 63, respiratory rate 18, blood pressure 163/70 with pulse ox of 95% on room air On 09/12/2023 patient was seen and examined on the medical floor he is alert slightly confused in no apparent distress he is receiving Seroquel at bedtime and when necessary Ativan EEG was done today results are still pending physical therapy and occupational therapy are consulted will assess if patient can go back home or need to go [facility] a [facility] for [facility]. On 09/13/2023 patient is currently resting in bed remains slightly confused. Discussed with case management rehab versus home. EEG was completed. Awaiting neurology input. Patient denies chest pain or shortness of breath. Patient denies nausea vomiting or diarrhea. Patient denies any urinary burning or frequency Patient Condition at Discharge: Stable Plan - Discharge Summary Discharge Rx Participant: No New Discharge Prescriptions: New QUEtiapine [SEROquel] 25 mg PO HS 30 Days #30 tab Continue Simvastatin [Zocor] 10 mg PO HS Aspirin [Adult Low Dose Aspirin EC] 81 mg PO HS rOPINIRole HCL [Requip] 0.25 mg PO TID Donepezil HCl [Aricept] 10 mg PO HS glipiZIDE/METFORMIN HCL [glipiZIDE/METFORMIN HCL 5-500 mg] 1 tab PO DAILY Temazepam [Restoril] 15 mg PO HS PRN PRN Reason: Insomnia FLUoxetine HCL [PROzac] 20 mg PO HS Carbidopa/Levodopa [Duopa 4.63 mg-20 mg/ml Susp] 1 dose MISCELLANE DIRECTED Mv-Min/Folic/K1/Lycopen/Lutein [Centrum Silver Men Tablet] 1 tab PO DAILY Discharge Medication List Simvastatin [Zocor] 10 mg PO HS 10/21/16 [History] Aspirin [Adult Low Dose Aspirin EC] 81 mg PO HS 06/30/17 [History] Donepezil HCl [Aricept] 10 mg PO HS 03/09/22 [History] FLUoxetine HCL [PROzac] 20 mg PO HS 03/09/22 [History] Temazepam [Restoril] 15 mg PO HS PRN 03/09/22 [History] rOPINIRole HCL [Requip] 0.25 mg PO TID 03/09/22 [History] Carbidopa/Levodopa [Duopa 4.63 mg-20 mg/ml Susp] 1 dose MISCELLANE DIRECTED 09/08/23 [History] Mv-Min/Folic/K1/Lycopen/Lutein [Centrum Silver Men Tablet] 1 tab PO DAILY 09/08/23 [History] glipiZIDE/METFORMIN HCL [glipiZIDE/METFORMIN HCL 5-500 mg] 1 tab PO DAILY 09/08/23 [History] QUEtiapine [SEROquel] 25 mg PO HS 30 Days #30 tab 09/13/23 [Rx] Follow up Appointment(s)/Referral(s): [facility], [NON-STAFF] - 1-2 Days ([facility] will call you to schedule your in home nursing, physical therapy, and occupational therapy visits. ) Angeli Burton MD [Primary Care Provider] - 1-2 days Activity/Diet/Wound Care/Special Instructions: Remi Pace: #[phone] Discharge/Stand Alone Forms: Who Do I Call?, Community Resources, Help In The Home
--- NOTE | 2023-09-13 15:12 | P.PN ---
Subjective Progress Note Date: 09/13/23 I'm seeing the patient for the first on the during this admission. Patient is accompanied with his . It seems the patient has underlying history of Parkinson's disease and he follows up with Dr. Maciel. Seems the patient had her syncope episode. On the EEG there is no seizure. Objective - Vital Signs Vital signs: Vital Signs Temp 97.7 F 09/13/23 07:00 Pulse 69 09/13/23 07:00 Resp 14 09/13/23 07:00 BP 164/87 09/13/23 07:00 Pulse Ox 96 09/13/23 07:00 FiO2 21 09/09/23 21:39 Intake & Output 09/12/23 09/13/23 09/13/23 18:59 06:59 18:59 Intake Total 598 Output Total 200 Balance 598 -200 Intake: Oral 598 Output: Urine 200 Other: Voiding Method Toilet Toilet Diaper Diaper # Voids 1 3 - Exam General: Lying in bed and is not in acute distress. Neuro: Limited. Patient was sleeping but he was awake able to voice. He is oriented to self. He correctly stated he is in the hospital. He is able to follow simple commands. No facial weakness. No dysarthria from limited language. Motor he was able to lift up bilateral upper above gravity but seems very weak in the lowers. - Labs CBC & Chem 7: 09/12/23 06:55 09/12/23 06:55 Assessment and Plan Assessment: * Near syncope. This is likely triggered from viral syndrome. No seizure on the EEG. * Parkinson's disease * Mild dementia * Presence of Duopa pump * Diabetes * Hypertension * Hyperlipidemia * Sleep apnea, on CPAP machine Plan: * It appears patient's Parkinson's gets worse in the evening at night, daily for "months". Dr. Smith discussed with his about adding either Sinemet at night, but she believes it did not help and she declined. Recommended increase dose of Requip, but she declined, as the dose was just increased 0.25 mg 3 times a day to 4 times a day. She can increase the rate of Duopa pump, but she does not have instructions how to do it. Patient's wanted him to stay on the same medication regimen, and did not seem to accept any changes in his regimen. * Recommend patient follow up with neurologist Dr. Maciel as outpatient for management of Parkinson's disease. Has an appointment in end of October 2023. * 2-D echo revealed normal left ventricular size and systolic function with EF 55-60%. Left atrial size is normal. Aortic valve sclerosis. * Carotid Doppler revealed atheromatous plaquing without significant flow limiting stenosis. Antegrade flow in both vertebral arteries. * EEG: Is abnormal. The background slowing suggestive of mild encephalopathy. Otherwise there is no focal slowing, epileptiform discharges or seizure on the EEG. * Continue donepezil 10 mg for cognitive impairment * B12: 819, folate: 19.4 * Continue Requip 0.25 mg 4 times a day. * I spoke with the patient's and I notified her that I feel seems possibly it's too much work for this to take care of him at home and I would recommend nursing facility in the meantime. We'll have the telephonic nurse case manager to discuss with the patient's options about placement. The plan was discussed with the patient's and his nurse. Time with Patient: Less than 30
== END 2023-09-13 15:27 | disposition home or self-care (01) ==
LOC: EC 22:29 → 6NMEDSUR 09-08 01:19
PROVIDERS: ADMIT Internal Medicine; ATTEND Internal Medicine
DX: R53.1 Weakness (principal); G20.A1 Parkinson's disease without dyskinesia, without mention of fluctuations; G30.9 Alzheimer's disease, unspecified; F02.A11 Dementia in other diseases classified elsewhere, mild, with agitation; E86.0 Dehydration; R06.02 Shortness of breath; R55 Syncope and collapse; R13.10 Dysphagia, unspecified; G47.33 Obstructive sleep apnea (adult) (pediatric); I10 Essential (primary) hypertension; E11.9 Type 2 diabetes mellitus without complications; I35.8 Other nonrheumatic aortic valve disorders; E78.5 Hyperlipidemia, unspecified; I45.6 Pre-excitation syndrome; K44.9 Diaphragmatic hernia without obstruction or gangrene; M19.041 Primary osteoarthritis, right hand; Z11.52 Encounter for screening for COVID-19; Z79.82 Long term (current) use of aspirin; Z79.899 Other long term (current) drug therapy; Z97.8 Presence of other specified devices; Z85.828 Personal history of other malignant neoplasm of skin; Z89.022 Acquired absence of left finger(s); Z80.3 Family history of malignant neoplasm of breast; Z80.42 Family history of malignant neoplasm of prostate; Z80.0 Family history of malignant neoplasm of digestive organs; Z80.41 Family history of malignant neoplasm of ovary
CPT/HCPCS: 96376 ×4; 96361 ×5; 96372 ×7; 96374; 99285; 36415; 94760; 95816; 93005; 93306; 97162; 97167; 80053 ×4; 82607; 82746; 83605; 83735; 85025 ×4; 85610; 85730; 81003; 87636; 71045; 71046; 93880; G0378 ×6; J2060 ×4; J1630; J1644 ×6; J2405

== ENCOUNTER 2023-09-20 05:44 | Observation (INO) | payer MEDICARE ==
[2023-09-20 05:58] LABS: Glucose,Whole Blood 115 mg/dL (70-110)
[2023-09-20] MEDS ORDERED: SODIUM CHLORIDE 0.9% 500 ML 500 ML IV ONE (06:25)
--- NOTE | 2023-09-20 06:29 | ED ---
Altered Mental Status HPI - General Chief Complaint: Altered Mental Status Stated Complaint: Alt Mental Status Time Seen by Provider: 09/20/23 06:03 Source: family, EMS, RN notes reviewed, old records reviewed Mode of arrival: EMS Limitations: altered mental status - History of Present Illness Initial Comments: 78-year-old male presents emergency department via EMS with for increasing weakness, altered mental status. Patient was recently hospitalized for syncopal episode and full evaluation and discharged on week ago. Per patient has started to climb or last few days he is minimally responsive and has not been eating or drinking. Patient does have underlying diabetes and Parkinson's disease. Patient is followed by Dr. Maciel. Patient is unable to provide any significant information at this time is been no reports of chest pain shortness of breath fevers chills headache or dizziness. When he states he did complain of some abdominal discomfort but more of an upset stomach. She does report that he was started on new medication for nighttime. - Related Data Home Medications Medication Instructions Recorded Confirmed Simvastatin [Zocor] 10 mg PO HS 10/21/16 09/20/23 Aspirin [Adult Low Dose Aspirin EC] 81 mg PO HS 06/30/17 09/20/23 Donepezil HCl [Aricept] 10 mg PO HS 03/09/22 09/20/23 FLUoxetine HCL [PROzac] 20 mg PO HS 03/09/22 09/20/23 Temazepam [Restoril] 15 mg PO HS PRN 03/09/22 09/20/23 rOPINIRole HCL [Requip] 0.25 mg PO TID 03/09/22 09/20/23 Carbidopa/Levodopa [Duopa 4.63 1 dose MISCELLANE DIRECTED 09/08/23 09/20/23 mg-20 mg/ml Susp] Mv-Min/Folic/K1/Lycopen/Lutein 1 tab PO DAILY 09/08/23 09/20/23 [Centrum Silver Men Tablet] glipiZIDE/METFORMIN HCL 1 tab PO DAILY 09/08/23 09/20/23 [glipiZIDE/METFORMIN HCL 5-500 mg] Previous Rx's Medication Instructions Recorded QUEtiapine [SEROquel] 25 mg PO HS 30 Days #30 tab 09/13/23 Allergies Allergy/AdvReac Type Severity Reaction Status Date / Time No Known Allergies Allergy Verified 09/20/23 06:54 Review of Systems ROS Statement: Those systems with pertinent positive or pertinent negative responses have been documented in the HPI. ROS Other: All systems not noted in ROS Statement are negative. Past Medical History Past Medical History: Cancer, Diabetes Mellitus, Hyperlipidemia, Musculoskeletal Disorder, Osteoarthritis (OA), Sleep Apnea/CPAP/BIPAP Additional Past Medical History / Comment(s): hx Ohycp-Yraxfnvka-Tmhhl, Skin CA. small hiatal hernia, diff swallowing, arthritis rt hand, Parkinson History of Any Multi-Drug Resistant Organisms: None Reported Past Surgical History: Cardiac Ablation, Orthopedic Surgery Additional Past Surgical History / Comment(s): skin cancer removed from forehead, .Lt ring finger amputation. arthroscopic surgery on left hip and left knee Past Anesthesia/Blood Transfusion Reactions: No Reported Reaction Past Psychological History: No Psychological Hx Reported Smoking Status: Never smoker Past Alcohol Use History: Rare Past Drug Use History: None Reported - Past Family History Mother Family Medical History: Cancer Additional Family Medical History / Comment(s): Breast CA. Father Family Medical History: Cancer Additional Family Medical History / Comment(s): Prostate CA with mets to liver and colon Sister(s) Family Medical History: Cancer Additional Family Medical History / Comment(s): Ovarian CA. General Exam Limitations: altered mental status General appearance: alert, in no apparent distress Head exam: Present: atraumatic, normocephalic, normal inspection Eye exam: Present: normal appearance, PERRL, EOMI. Absent: scleral icterus, conjunctival injection, periorbital swelling ENT exam: Present: mucous membranes dry. Absent: normal exam, mucous membranes moist Neck exam: Present: normal inspection, full ROM. Absent: tenderness, meningismus, lymphadenopathy Respiratory exam: Present: normal lung sounds bilaterally. Absent: respiratory distress, wheezes, rales, rhonchi, stridor Cardiovascular Exam: Present: regular rate, normal rhythm, normal heart sounds. Absent: systolic murmur, diastolic murmur, rubs, gallop, clicks GI/Abdominal exam: Present: soft, normal bowel sounds. Absent: distended, tenderness, guarding, rebound, rigid Neurological exam: Present: altered. Absent: oriented X3 Skin exam: Present: warm, dry, intact, normal color. Absent: rash Course Vital Signs 09/20/23 09/20/23 05:46 06:07 Temperature 96.9 F L Pulse Rate 74 Respiratory 16 Rate Blood Pressure 152/86 O2 Sat by Pulse 96 Oximetry Medical Decision Making - Medical Decision Making Was pt. sent in by a medical professional or institution (MELIDA Sargent, NETTING INSPECTOR, urgent care, hospital, or [facility]...) When possible be specific @ -No Did you speak to anyone other than the patient for history (EMS, parent, family, police, friend...)? What history was obtained from this source @ - providing all history Did you review nursing and triage notes (agree or disagree)? Why? @ -I reviewed and agree with nursing and triage notes Were old charts reviewed (outside hosp., previous admission, EMS record, old EKG, old radiological studies, urgent care reports/EKG's, [facility] records)? Report findings @ -Reviewed recent admission, limited studies, neurology evaluation Differential Diagnosis (chest pain, altered mental status, abdominal pain women, abdominal pain men, vaginal bleeding, weakness, fever, dyspnea, syncope, headache, dizziness, GI bleed, back pain, seizure, CVA, palpatations, mental health, musculoskeletal)? @ -nDifferential Altered Mental Status: Hypoglycemia, DKA, hypercapnia, ETOH, overdose, CO poisoning, trauma, myxedema coma, HTN encephalopathy, infection, encephalitis, psychosis, intercranial hemorrhage, hepatic encephalopathy, meningitis, CVA, this is not meant to be an all-inclusive listle EKG interpreted by me (3pts min.). @ -As above X-rays interpreted by me (1pt min.). @ -Chest x-ray shows no acute cardio pulmonary process CT interpreted by me (1pt min.). @ -CT brain showing no acute intracranial hemorrhage, mass effect or acute changes U/S interpreted by me (1pt. min.). @ -None done What testing was considered but not performed or refused? (CT, X-rays, U/S, labs)? Why? @ -None What meds were considered but not given or refused? Why? @ -None Did you discuss the management of the patient with other professionals (professionals i.e. MELIDA Sargent, NETTING INSPECTOR, lab, RT, psych nurse, clinical social worker, brewing technician, teacher, precinct commanding officer, rn case management)? Give summary @ -Dr. Levy for admission secondary to increasing weakness, altered mental status Was smoking cessation discussed for >3mins.? @ -No Was critical care preformed (if so, how long)? @ -No Were there social determinants of health that impacted care today? How? (Homelessness, low income, unemployed, alcoholism, drug addiction, transportation, low edu. Level, literacy, decrease access to med. care, care home, rehab)? @ -No Was there de-escalation of care discussed even if they declined (Discuss DNR or withdrawal of care, Hospice)? DNR status @ -No What co-morbidities impacted this encounter? (DM, HTN, Smoking, COPD, CAD, Cancer, CVA, ARF, Chemo, Hep., AIDS, mental health diagnosis, sleep apnea, morbid obesity)? @ -Parkinson's, diabetes Was patient admitted / discharged? Hospital course, mention meds given and route, prescriptions, significant lab abnormalities, going to OR and other pertinent info. @ -Admitted patient having acute altered mental status, increasing weakness p atient is not stable for discharge patient does have moderate dehydration will continue gentle hydration and will have neurology consult. Undiagnosed new problem with uncertain prognosis? @ -Yes Drug Therapy requiring intensive monitoring for toxicity (Heparin, Nitro, Insulin, Cardizem)? @ -No Were any procedures done? @ -No Diagnosis/symptom? @ -[Altered mental status, weakness, dehydration Acute, or Chronic, or Acute on Chronic? @ -[Acute Uncomplicated (without systemic symptoms) or Complicated (systemic symptoms)? @ -Complicated Side effects of treatment? @ -No Exacerbation, Progression, or Severe Exacerbation? @ -No Poses a threat to life or bodily function? How? (Chest pain, [place], [place], pneumonia, PE, COPD, DKA, ARF, appy, cholecystitis, CVA, Diverticulitis, Homicidal, Suicidal, threat to staff... and all critical care pts) @ -No - Lab Data Result diagrams: 09/20/23 06:27 09/20/23 06:27 Lab Results 09/20/23 09/20/23 09/20/23 Range/Units 05:56 06:27 06:27 WBC 9.1 (3.8-10.6) k/uL RBC 4.29 L (4.30-5.90) m/uL Hgb 13.7 (13.0-17.5) gm/dL Hct 41.6 (39.0-53.0) % MCV 96.9 (80.0-100.0) fL MCH 31.9 (25.0-35.0) pg MCHC 32.9 (31.0-37.0) g/dL RDW 13.1 (11.5-15.5) % Plt Count 238 (150-450) k/uL MPV 8.2 Neutrophils % 82 % Lymphocytes % 11 % Monocytes % 5 % Eosinophils % 1 % Basophils % 0 % Neutrophils # 7.5 (1.3-7.7) k/uL Lymphocytes # 1.0 (1.0-4.8) k/uL Monocytes # 0.5 (0-1.0) k/uL Eosinophils # 0.1 (0-0.7) k/uL Basophils # 0.0 (0-0.2) k/uL PT 10.1 (10.0-12.5) sec INR 0.9 (<1.2) APTT 23.8 (22.0-30.0) sec Sodium (137-145) mmol/L Potassium (3.5-5.1) mmol/L Chloride (98-107) mmol/L Carbon Dioxide (22-30) mmol/L Anion Gap mmol/L BUN (9-20) mg/dL Creatinine (0.66-1.25) mg/dL Est GFR (CKD-EPI)AfAm (>60 ml/min/1.73 sqM) Est GFR (CKD-EPI)NonAf (>60 ml/min/1.73 sqM) Glucose (74-99) mg/dL POC Glucose (mg/dL) 115 H (70-110) mg/dL POC Glu Strap Folding Machine Operator ID Esparza, Nika Calcium (8.4-10.2) mg/dL Magnesium (1.6-2.3) mg/dL Total Bilirubin (0.2-1.3) mg/dL AST (17-59) U/L ALT (4-49) U/L Alkaline Phosphatase (38-126) U/L Ammonia (<30) umol/L Troponin I (0.000-0.034) ng/mL Total Protein (6.3-8.2) g/dL Albumin (3.5-5.0) g/dL Urine Color Urine Appearance (Clear) Urine pH (5.0-8.0) Ur Specific [place] (1.001-1.035) Urine Protein (Negative) Urine Glucose (UA) (Negative) Urine Ketones (Negative) Urine Blood (Negative) Urine Nitrite (Negative) Urine Bilirubin (Negative) Urine Urobilinogen (<2.0) mg/dL Ur Leukocyte Esterase (Negative) 09/20/23 09/20/23 09/20/23 Range/Units 06:27 06:27 06:27 WBC (3.8-10.6) k/uL RBC (4.30-5.90) m/uL Hgb (13.0-17.5) gm/dL Hct (39.0-53.0) % MCV (80.0-100.0) fL MCH (25.0-35.0) pg MCHC (31.0-37.0) g/dL RDW (11.5-15.5) % Plt Count (150-450) k/uL MPV Neutrophils % % Lymphocytes % % Monocytes % % Eosinophils % % Basophils % % Neutrophils # (1.3-7.7) k/uL Lymphocytes # (1.0-4.8) k/uL Monocytes # (0-1.0) k/uL Eosinophils # (0-0.7) k/uL Basophils # (0-0.2) k/uL PT (10.0-12.5) sec INR (<1.2) APTT (22.0-30.0) sec Sodium 140 (137-145) mmol/L Potassium 5.2 H (3.5-5.1) mmol/L Chloride 102 (98-107) mmol/L Carbon Dioxide 25 (22-30) mmol/L Anion Gap 13 mmol/L BUN 35 H (9-20) mg/dL Creatinine 1.15 (0.66-1.25) mg/dL Est GFR (CKD-EPI)AfAm 71 (>60 ml/min/1.73 sqM) Est GFR (CKD-EPI)NonAf 61 (>60 ml/min/1.73 sqM) Glucose 113 H (74-99) mg/dL POC Glucose (mg/dL) (70-110) mg/dL POC Glu Strap Folding Machine Operator ID Calcium 9.9 (8.4-10.2) mg/dL Magnesium 2.4 H (1.6-2.3) mg/dL Total Bilirubin 1.2 (0.2-1.3) mg/dL AST 49 (17-59) U/L ALT 6 (4-49) U/L Alkaline Phosphatase 70 (38-126) U/L Ammonia (<30) umol/L Troponin I 0.030 (0.000-0.034) ng/mL Total Protein 7.5 (6.3-8.2) g/dL Albumin 4.7 (3.5-5.0) g/dL Urine Color Dark Yellow Urine Appearance Clear (Clear) Urine pH 6.0 (5.0-8.0) Ur Specific [place] 1.030 (1.001-1.035) Urine Protein Trace H (Negative) Urine Glucose (UA) Negative (Negative) Urine Ketones 3+ H (Negative) Urine Blood Trace H (Negative) Urine Nitrite Negative (Negative) Urine Bilirubin Negative (Negative) Urine Urobilinogen 0.2 (<2.0) mg/dL Ur Leukocyte Esterase Negative (Negative) 09/20/23 Range/Units 07:00 WBC (3.8-10.6) k/uL RBC (4.30-5.90) m/uL Hgb (13.0-17.5) gm/dL Hct (39.0-53.0) % MCV (80.0-100.0) fL MCH (25.0-35.0) pg MCHC (31.0-37.0) g/dL RDW (11.5-15.5) % Plt Count (150-450) k/uL MPV Neutrophils % % Lymphocytes % % Monocytes % % Eosinophils % % Basophils % % Neutrophils # (1.3-7.7) k/uL Lymphocytes # (1.0-4.8) k/uL Monocytes # (0-1.0) k/uL Eosinophils # (0-0.7) k/uL Basophils # (0-0.2) k/uL PT (10.0-12.5) sec INR (<1.2) APTT (22.0-30.0) sec Sodium (137-145) mmol/L Potassium (3.5-5.1) mmol/L Chloride (98-107) mmol/L Carbon Dioxide (22-30) mmol/L Anion Gap mmol/L BUN (9-20) mg/dL Creatinine (0.66-1.25) mg/dL Est GFR (CKD-EPI)AfAm (>60 ml/min/1.73 sqM) Est GFR (CKD-EPI)NonAf (>60 ml/min/1.73 sqM) Glucose (74-99) mg/dL POC Glucose (mg/dL) (70-110) mg/dL POC Glu Strap Folding Machine Operator ID Calcium (8.4-10.2) mg/dL Magnesium (1.6-2.3) mg/dL Total Bilirubin (0.2-1.3) mg/dL AST (17-59) U/L ALT (4-49) U/L Alkaline Phosphatase (38-126) U/L Ammonia <9 (<30) umol/L Troponin I (0.000-0.034) ng/mL Total Protein (6.3-8.2) g/dL Albumin (3.5-5.0) g/dL Urine Color Urine Appearance (Clear) Urine pH (5.0-8.0) Ur Specific [place] (1.001-1.035) Urine Protein (Negative) Urine Glucose (UA) (Negative) Urine Ketones (Negative) Urine Blood (Negative) Urine Nitrite (Negative) Urine Bilirubin (Negative) Urine Urobilinogen (<2.0) mg/dL Ur Leukocyte Esterase (Negative) - EKG Data -: EKG Interpreted by Ia EKG Comments: EKG performed and charcoal 50 sinus rhythm with a rate of 71 NC 172 QRS 97 QT/QTC 392/415 Disposition Clinical Impression: Weakness, Dehydration, Altered mental status Disposition: ADMITTED IP TO THIS HOSP Condition: Fair Referrals: Angeli Burton MD [Primary Care Provider] - 1-2 days Time of Disposition: 08:37
--- NOTE | 2023-09-20 06:44 | XR ---
EXAMINATION TYPE: XR chest 1V DATE OF EXAM: 09/20/2023 COMPARISON: 09/12/2023 INDICATION: Altered mental status TECHNIQUE: Single frontal view of the chest is obtained. FINDINGS: The heart size is normal. The pulmonary vasculature is normal. The lungs are clear. Previous right lower lobe infiltrate has resolved IMPRESSION: 1. No acute pulmonary process.
[2023-09-20 06:48] LABS: Basophils % (A) 0 %; Eosinophils # (A) 0.1 k/uL (0-0.7); Eosinophils % (A) 1 %; HCT 41.6 % (39.0-53.0); HGB 13.7 gm/dL (13.0-17.5); Lymphocytes % (A) 11 %; MCH 31.9 pg (25.0-35.0); MCHC 32.9 g/dL (31.0-37.0); MCV 96.9 fL (80.0-100.0); Mean Platelet Volume 8.2; Monocytes # (A) 0.5 k/uL (0-1.0); Monocytes % (A) 5 %; Neutrophils # (A) 7.5 k/uL (1.3-7.7); Neutrophils % (A) 82 %; Platelet Count 238 k/uL (150-450); RBC 4.29 m/uL (4.30-5.90); RDW 13.1 % (11.5-15.5); WBC 9.1 k/uL (3.8-10.6)
--- NOTE | 2023-09-20 06:55 | CT ---
EXAMINATION TYPE: CT brain wo con DATE OF EXAM: 09/20/2023 COMPARISON: 12/21/2020 INDICATION: ams DLP: 1167.4 mGycm, Automated exposure control for dose reduction was used. CONTRAST: None CT of the brain is performed utilizing 3 mm thick sections through the posterior fossa and 3 mm thick sections through the remaining calvarium. Study is performed within 24 hours of arrival to the hosp ital. No abnormal hyperdensity is present to suggest an acute intracranial hemorrhage. No mass lesion is evident. No acute infarcts are evident. Minimal periventricular white matter hypodensity is present, likely on the basis of chronic white matter ischemic changes. Ventricles and sulci are prominent for the patient age. Some mild mucosal thickening is within ethmoid air cells. Remaining paranasal sinuses and mastoid air cells are clear IMPRESSION: 1. Stable chronic appearing periventricular white matter ischemic type change with atrophy. 2. No acute intracranial process radiographically apparent. Follow-up MRI can be performed as clinica lly indicated.0
[2023-09-20 06:58] LABS: ALT 6 U/L (4-49); African American GFR (CKD) 71 (>60 ml/min/1.73 sqM); Anion Gap 13 mmol/L; Blood Urea Nitrogen 35 mg/dL (9-20); Calcium 9.9 mg/dL (8.4-10.2); Carbon Dioxide 25 mmol/L (22-30); Chloride 102 mmol/L (98-107); Glucose 113 mg/dL (74-99); Non-African American GFR(CKD) 61 (>60 ml/min/1.73 sqM); Sodium 140 mmol/L (137-145)
[2023-09-20 07:03] LABS: INR 0.9 (<1.2); Partial Thromboplastin Time 23.8 sec (22.0-30.0); Prothrombin Time 10.1 sec (10.0-12.5)
[2023-09-20 07:36] LABS: Albumin 4.7 g/dL (3.5-5.0); Magnesium 2.4 mg/dL (1.6-2.3); Total Protein 7.5 g/dL (6.3-8.2)
[2023-09-20 07:37] LABS: AST 49 U/L (17-59); Alkaline Phosphatase 70 U/L (38-126)
[2023-09-20 07:38] LABS: Potassium 5.2 mmol/L (3.5-5.1); Total Bilirubin 1.2 mg/dL (0.2-1.3)
[2023-09-20 08:51] LABS: Appearance,Urine Clear (Clear); Color,Urine Dark Yellow; Glucose,Urine (UA) Negative (Negative); Ketones,Urine 3+ (Negative); Protein,Urine Trace (Negative)
[2023-09-20 08:52] LABS: Bilirubin,Urine Negative (Negative); Blood,Urine Trace (Negative); Leukocyte Esterase,Urine Negative (Negative); Nitrite,Urine Negative (Negative); Urobilinogen,Urine 0.2 mg/dL (<2.0)
[2023-09-20] MEDS ORDERED: NALOXONE 0.4 MG/ML 1 ML VIAL IV PRN (09:02)
[2023-09-20] MEDS ORDERED: ACETAMINOPHEN TAB 325 MG TAB PO PRN (09:02)
[2023-09-20 09:04] LABS: Bacteria,Urine Rare /hpf; Mucus,Urine Rare /hpf; RBC,Urine 4 /hpf (0-5); WBC,Urine 3 /hpf (0-5)
[2023-09-20] MEDS: SODIUM CHLORIDE 0.9% 1,000 ML IV SCH (10:32)
[2023-09-20 13:31] LABS: Glucose,Whole Blood 128 mg/dL (70-110)
[2023-09-20] MEDS ORDERED: RIVASTIGMINE 4.6MG/24HR PATCH TRANSDERM SCH (16:30)
[2023-09-20] MEDS ORDERED: TEMAZEPAM 15 MG CAP PO PRN (17:03)
[2023-09-20 17:04] LABS: Glucose,Whole Blood 178 mg/dL (70-110)
[2023-09-20] MEDS: CARBIDOPA MISCELLANE SCH (17:59)
[2023-09-20] MEDS: LEVODOPA MISCELLANE SCH (17:59)
[2023-09-20] MEDS: DONEPEZIL 10 MG TAB PO SCH (22:09)
[2023-09-20] MEDS: ASPIRIN 81 MG PO SCH (22:09)
[2023-09-20] MEDS: ATORVASTATIN 10 MG TAB PO SCH (22:09)
[2023-09-20] MEDS: MEMANTINE 5 MG TAB PO SCH (22:09)
[2023-09-20] MEDS: FLUoxetine HCL 20 MG CAP PO SCH (22:09)
[2023-09-21] MEDS: SODIUM CHLORIDE 0.9% 1,000 ML IV SCH ×3 (02:43→23:57)
[2023-09-21] MEDS ORDERED: NON FORMULARY DRUG (Glipizide/Metformin Hcl [Glipizide/Metformin Hcl 5-500 Mg] 1 EACH Tabl PO SCH (09:00)
--- NOTE | 2023-09-21 09:13 | P.HPIM ---
History of Present Illness H&P Date: 09/20/23 Birgit Huff, is a 78-year-old male who presented to [facility] emergency room with a chief complaint of altered mental status, per patient's patient has been declining, he is minimally responsive and not eating or drinking for the last few days. Patient was recently admitted to [facility] with syncopal episode, he has known history of Parkinson disease, diabetes mellitus, hyperlipidemia, depression and dementia. During the last admission patient was having episodes of agitation and a low-dose of Seroquel was added to his medication regimen. He was evaluated in the emergency room vital examination on presentation revealed a temperature of 96.9 pulse 74 respiration 16 and blood pressure 152/86 pulse ox 96% on room air Laboratory data revealed a white blood count of 9.1 hemoglobin 13.7 platelet count 238 sodium 140 potassium 5.2 chloride 102 CO2 25 BUN 35 creatinine 1.15 Testing in the emergency room revealed computed tomography scan of the brain revealed stable chronic appearing periventricular white matter ischemic changes with atrophy, no acute intracranial process. Patient was admitted to medical floor for further evaluation and treatment Past Medical History Past Medical History: Cancer, Diabetes Mellitus, Hyperlipidemia, Musculoskeletal Disorder, Osteoarthritis (OA), Sleep Apnea/CPAP/BIPAP Additional Past Medical History / Comment(s): hx Ovwlw-Tspqjlutt-Gvudh, Skin CA. small hiatal hernia, diff swallowing, arthritis rt hand, Parkinson History of Any Multi-Drug Resistant Organisms: None Reported Past Surgical History: Cardiac Ablation, Orthopedic Surgery Additional Past Surgical History / Comment(s): skin cancer removed from forehead, .Lt ring finger amputation. arthroscopic surgery on left hip and left knee Past Anesthesia/Blood Transfusion Reactions: No Reported Reaction Past Psychological History: No Psychological Hx Reported Smoking Status: Never smoker Past Alcohol Use History: Rare Past Drug Use History: None Reported - Past Family History Mother Family Medical History: Cancer Additional Family Medical History / Comment(s): Breast CA. Father Family Medical History: Cancer Additional Family Medical History / Comment(s): Prostate CA with mets to liver and colon Sister(s) Family Medical History: Cancer Additional Family Medical History / Comment(s): Ovarian CA. Medications and Allergies Home Medications Medication Instructions Recorded Confirmed Type Simvastatin [Zocor] 10 mg PO HS 10/21/16 09/20/23 History Aspirin [Adult Low Dose Aspirin EC] 81 mg PO HS 06/30/17 09/20/23 History Donepezil HCl [Aricept] 10 mg PO HS 03/09/22 09/20/23 History FLUoxetine HCL [PROzac] 20 mg PO HS 03/09/22 09/20/23 History Temazepam [Restoril] 15 mg PO HS PRN 03/09/22 09/20/23 History rOPINIRole HCL [Requip] 0.25 mg PO TID 03/09/22 09/20/23 History Carbidopa/Levodopa [Duopa 4.63 1 dose MISCELLANE DIRECTED 09/08/23 09/20/23 History mg-20 mg/ml Susp] Mv-Min/Folic/K1/Lycopen/Lutein 1 tab PO DAILY 09/08/23 09/20/23 History [Centrum Silver Men Tablet] glipiZIDE/METFORMIN HCL 1 tab PO DAILY 09/08/23 09/20/23 History [glipiZIDE/METFORMIN HCL 5-500 mg] QUEtiapine [SEROquel] 25 mg PO HS 30 Days #30 tab 09/13/23 09/20/23 Rx Allergies Allergy/AdvReac Type Severity Reaction Status Date / Time No Known Allergies Allergy Verified 09/20/23 06:54 Physical Exam Vitals: Vital Signs Temp Pulse Resp BP Pulse Ox 09/20/23 13:03 69 18 144/83 98 09/20/23 10:00 68 18 153/76 99 09/20/23 06:07 152/86 09/20/23 05:46 96.9 F L 74 16 96 Intake and Output 09/19/23 09/20/23 09/20/23 22:59 06:59 14:59 Other: Weight 54.431 kg In general patient is somnolent, responsive in no distress HEENT head normocephalic and atraumatic Neck is supple no JVD no goiter no lymphadenopathy no carotid bruit Chest examination is clear to auscultation no crackles no wheezing Cardiac exam reveals regular heart sounds S1 and S2 no gallops no murmurs Abdomen is soft nontender no organomegaly with normal bowel sounds Extremity exam reveals no edema no cyanosis or clubbing Neurological examination reveals no gross focal deficits Results CBC & Chem 7: 09/20/23 06:27 12/12/23 06:27 Labs: Abnormal Lab Results - Last 24 Hours (Table) 09/20/23 09/20/23 09/20/23 Range/Units 05:56 06:27 06:27 RBC 4.29 L (4.30-5.90) m/uL Potassium (3.5-5.1) mmol/L BUN (9-20) mg/dL Glucose (74-99) mg/dL POC Glucose (mg/dL) 115 H (70-110) mg/dL Magnesium (1.6-2.3) mg/dL Urine Protein Trace H (Negative) Urine Ketones 3+ H (Negative) Urine Blood Trace H (Negative) Urine Bacteria Rare H (None) /hpf Urine Mucus Rare H (None) /hpf 09/20/23 09/20/23 Range/Units 06:27 13:30 RBC (4.30-5.90) m/uL Potassium 5.2 H (3.5-5.1) mmol/L BUN 35 H (9-20) mg/dL Glucose 113 H (74-99) mg/dL POC Glucose (mg/dL) 128 H (70-110) mg/dL Magnesium 2.4 H (1.6-2.3) mg/dL Urine Protein (Negative) Urine Ketones (Negative) Urine Blood (Negative) Urine Bacteria (None) /hpf Urine Mucus (None) /hpf Assessment and Plan Plan: Acute mental status changes Recent admission with syncope Underlying history of Parkinson's disease Underlying history of diabetes mellitus Underlying history of hyperlipidemia Underlying history of depression maintained on Prozac Underlying history of dementia At this time patient is admitted to telemetry floor, neurology consultation was requested Home medications reviewed and reordered Will withhold Seroquel at this time For DVT prophylaxis subcu Lovenox Will monitor progress
--- NOTE | 2023-09-21 09:16 | P.PN ---
Subjective Progress Note Date: 09/21/23 Birgit Huff, is a 78-year-old male who presented to [facility] emergency room with a chief complaint of altered mental status, per patient's patient has been declining, he is minimally responsive and not eating or drinking for the last few days. Patient was recently admitted to [facility] with syncopal episode, he has known history of Parkinson disease, diabetes mellitus, hyperlipidemia, depression and dementia. During the last admission patient was having episodes of agitation and a low-dose of Seroquel was added to his medication regimen. He was evaluated in the emergency room vital examination on presentation revealed a temperature of 96.9 pulse 74 respiration 16 and blood pressure 152/86 pulse ox 96% on room air Laboratory data revealed a white blood count of 9.1 hemoglobin 13.7 platelet count 238 sodium 140 potassium 5.2 chloride 102 CO2 25 BUN 35 creatinine 1.15 Testing in the emergency room revealed computed tomography scan of the brain revealed stable chronic appearing periventricular white matter ischemic changes with atrophy, no acute intracranial process. Patient was admitted to medical floor for further evaluation and treatment On 09/21/2023 patient is resting comfortably in bed confused. Neurology services have been consulted. Consult also placed for hospice per family requested. Current vital signs temp 97.7, heart rate 89, respiratory rate 16, blood pressure 163/82 with pulse ox 90% on room air Objective - Vital Signs Vital signs: Vital Signs Temp 97.7 F 09/21/23 08:00 Pulse 89 09/21/23 08:00 Resp 16 09/21/23 08:00 BP 163/82 09/21/23 08:00 Pulse Ox 98 09/21/23 08:00 FiO2 Intake & Output 09/20/23 09/21/23 09/21/23 18:59 06:59 18:59 Other: # Voids 0 - Exam In general patient is somnolent, responsive in no distress HEENT head normocephalic and atraumatic Neck is supple no JVD no goiter no lymphadenopathy no carotid bruit Chest examination is clear to auscultation no crackles no wheezing Cardiac exam reveals regular heart sounds S1 and S2 no gallops no murmurs Abdomen is soft nontender no organomegaly with normal bowel sounds Extremity exam reveals no edema no cyanosis or clubbing Neurological examination reveals no gross focal deficits - Labs CBC & Chem 7: 09/20/23 06:27 09/20/23 06:27 Labs: Abnormal Lab Results - Last 24 Hours (Table) 09/20/23 09/20/23 Range/Units 13:30 17:02 POC Glucose (mg/dL) 128 H 178 H (70-110) mg/dL Assessment and Plan Plan: Acute mental status changes Recent admission with syncope Underlying history of Parkinson's disease Underlying history of diabetes mellitus Underlying history of hyperlipidemia Underlying history of depression maintained on Prozac Underlying history of dementia At this time patient is admitted to telemetry floor, neurology consultation was requested Home medications reviewed and reordered Will withhold Seroquel at this time Hospice consult ordered per family request For DVT prophylaxis subcu Lovenox Will monitor progress
--- NOTE | 2023-09-21 09:46 | P.CNNES ---
History of Present Illness Consult date: 09/20/23 Requesting physician: Herbert Poole Reason for Consult: Altered mental status History of Present Illness: Patient is a 78-year-old male with history of Parkinson's disease and dementia, recently seen in hospital consultation just on 09/09/2023 for worsening parkinsonism, and dementia, was discharged home on 09/13/2023 now came to the hospital because of an episode of unresponsiveness. Patient has not seen a neurologist since discharge from the hospital. Patient's was present, who provided the history. She mentions that at 4:30 AM, she heard the Duopa pump alarm went off. She saw him that he was half in the bed, half out of the bed and the pump tubing was kinked. She tried to talk to him, and there was no response. She somehow managed to get him back to the bed and he groaned. She called their son who tried to wake him up and he did not respond. When she called his name loudly, he did say "yeah yeah" they called the ambulance and he was brought to the hospital. Patient has been diagnosed with Parkinson's disease about 4 years ago, and he follows up with Dr. Bernard Bernardo and his next appointment is in October 2023. Patient's mentions that his Parkinson's gets worse in the evening. He gets more dependent on her and his legs bother him. This is going on for months. Patient has a Duopa pump, and the last follow-up, the dose was increased to double and is getting the medication 24 hours a day. They have tried evening Sinemet dose, which did not help. Patient's believes that he has mild dementia, getting worse. Patient also has sleep apnea, uses CPAP machine. She believes that when he uses CPAP, in the morning, it loosens up the mucous, and he coughs it up. Patient's also mentions that he has developed hallucinations for the last 1 year. She states that hallucinations are getting bad, he sees people on the couch or on the chair. He thinks that his is partying, although she is not. Patient's also mentions that a nursing services manager comes and also physical therapist. She was planning for him to be seen by palliative care to talk about long-term care and the appointment was today but he ended up in the hospital. She also mentions that last night both of them fell, as patient was trying to walk, and he started tilting back. She helped him from the back, but but patient started taking steps forward, and she also lost balance and both of them fell on the ground where a rug was present. None of them got significantly hurt. EMS flow sheet not available in the chart. Vital signs on arrival, blood pressure 161/80, pulse rate 72 temperature 98.0. EKG shows sinus rhythm. Chest x-ray is normal. 2-D echo revealed normal left ventricle systolic function. Left atrial size is normal. MRI of the brain performed 12/07/2022 revealed mild to moderate diffuse cerebral atrophy, greatest over the bilateral frontal and temporal lobes. Moderate to severe probable chronic small vessel ischemic change. Moderate chronic ethmoid sinus disease. There is no history of tobacco or alcohol use. He has been recently diagnosed with diabetes. Medications include simvastatin 10 mg, aspirin 81 mg, ropinirole 0.25 mg 3 times a day, donepezil 10 mg at bedtime, fluoxetine 20 mg at bedtime, glipizide/metformin, Duopa 4.63 mg-20 mg/mL suspension, 100 mL as directed. Review of Systems Constitutional: Denies chills, Denies fever Eyes: denies blurred vision, denies pain Ears: deny: decreased hearing, ear discharge Ears, nose, mouth and throat: Denies headache, Denies sore throat Cardiovascular: Reports shortness of breath, Denies chest pain Respiratory: Reports excessive sputum, Denies cough Gastrointestinal: Reports constipation, Denies abdominal pain, Denies diarrhea, Denies nausea, Denies vomiting Genitourinary: Denies dysuria, Denies incontinence Musculoskeletal: Denies low back pain, Denies myalgias, Denies neck pain Integumentary: Denies pruritus, Denies rash Neurological: Reports as per HPI Psychiatric: Reports anxiety, Reports depression, Reports memory loss Past Medical History Past Medical History: Cancer, Diabetes Mellitus, Hyperlipidemia, Musculoskeletal Disorder, Osteoarthritis (OA), Sleep Apnea/CPAP/BIPAP Additional Past Medical History / Comment(s): hx [id number], Skin CA. small hiatal hernia, diff swallowing, arthritis rt hand, Parkinson History of Any Multi-Drug Resistant Organisms: None Reported Past Surgical History: Cardiac Ablation, Orthopedic Surgery Additional Past Surgical History / Comment(s): skin cancer removed from forehead, .Lt ring finger amputation. arthroscopic surgery on left hip and left knee Past Anesthesia/Blood Transfusion Reactions: No Reported Reaction Past Psychological History: No Psychological Hx Reported Smoking Status: Never smoker Past Alcohol Use History: Rare Past Drug Use History: None Reported - Past Family History Mother Family Medical History: Cancer Additional Family Medical History / Comment(s): Breast CA. Father Family Medical History: Cancer Additional Family Medical History / Comment(s): Prostate CA with mets to liver and colon Sister(s) Family Medical History: Cancer Additional Family Medical History / Comment(s): Ovarian CA. Medications and Allergies Home Medications Medication Instructions Recorded Confirmed Type Simvastatin [Zocor] 10 mg PO HS 10/21/16 09/20/23 History Aspirin [Adult Low Dose Aspirin EC] 81 mg PO HS 06/30/17 09/20/23 History Donepezil HCl [Aricept] 10 mg PO HS 03/09/22 09/20/23 History FLUoxetine HCL [PROzac] 20 mg PO HS 03/09/22 09/20/23 History Temazepam [Restoril] 15 mg PO HS PRN 03/09/22 09/20/23 History rOPINIRole HCL [Requip] 0.25 mg PO TID 03/09/22 09/20/23 History Carbidopa/Levodopa [Duopa 4.63 1 dose MISCELLANE DIRECTED 09/08/23 09/20/23 History mg-20 mg/ml Susp] Mv-Min/Folic/K1/Lycopen/Lutein 1 tab PO DAILY 09/08/23 09/20/23 History [Centrum Silver Men Tablet] glipiZIDE/METFORMIN HCL 1 tab PO DAILY 09/08/23 09/20/23 History [glipiZIDE/METFORMIN HCL 5-500 mg] QUEtiapine [SEROquel] 25 mg PO HS 30 Days #30 tab 09/13/23 09/20/23 Rx Allergies Allergy/AdvReac Type Severity Reaction Status Date / Time No Known Allergies Allergy Verified 09/20/23 06:54 Physical Examination - Vital Signs Vital Signs: Vital Signs Temp Pulse Resp BP Pulse Ox 09/20/23 15:00 71 18 161/81 100 09/20/23 14:30 77 18 161/81 99 09/20/23 14:00 70 18 144/82 100 09/20/23 13:30 72 18 144/83 09/20/23 13:03 69 18 144/83 98 09/20/23 13:00 70 18 09/20/23 12:30 62 18 09/20/23 12:00 61 14 110/66 09/20/23 11:30 63 17 110/66 98 09/20/23 11:09 68 19 110/66 98 09/20/23 10:00 68 18 153/76 99 09/20/23 06:07 152/86 09/20/23 05:46 96.9 F L 74 16 96 Intake and Output 09/20/23 09/20/23 09/20/23 06:59 14:59 22:59 Other: Weight 54.431 kg Patient is an elderly male, in no acute distress. Patient is slow mentation, appears slightly encephalopathic, but does wake up and becomes more alert. Patient states it is March, then said was August and then said September and the year is 2003. He believes that he is in a senior living. He knows that he lives in [facility]. Patient has positive palmomental reflex bilaterally and also significant visuospatial apraxia. Patient has some hypophonia. Speech and language functions are normal. Patient can name and repeat very well. No aphasia or dysarthria. Attention, concentration is slightly impaired and fund of knowledge is limited. On cranial nerve examination, pupils are equal, round and reacting to light, visual enciso are full on confrontation, with no neglect on double simultaneous stimulation. Extraocular muscles are intact with no nystagmus. Face is symmetric, tongue protrudes to the midline. Palatal elevation and sensation normal, hearing and shoulder shrug normal, facial sensation normal. On muscle strength testing, there is no pronator drift and the strength is normal in arms and legs distally and proximally, except hip flexion which is 5- bilaterally. Deep tendon reflexes are symmetric but overall hypoactive and plantars downgoing bilaterally. Sensory to touch is equal with no neglect on double simultaneous stimulation. Cerebellar function showed no ataxia for [id number] testing. No dysdiadochokinesia. No ataxia for [id number]-yj-sakw testing on either side. Tone is increased mild to moderately with evidence of cogwheeling. Patient has obvious tremors at rest of the right arm. Patient has significant bradykinesia. His bulk of muscles normal. Gait deferred.. On general examination, there is no carotid bruit or murmur, S1-S2 audible. Chest is clear on consultation. Abdomen is soft nontender. No organomegaly, bowel sounds present. Peripheral pulses are present. No peripheral edema. Results - Laboratory Findings CBC and BMP: 09/20/23 06:27 09/20/23 06:27 Abnormal Lab Findings: Abnormal Labs 09/20/23 09/20/23 09/20/23 05:56 06:27 06:27 RBC 4.29 L Potassium BUN Glucose POC Glucose (mg/dL) 115 H Magnesium Urine Protein Trace H Urine Ketones 3+ H Urine Blood Trace H Urine Bacteria Rare H Urine Mucus Rare H 09/20/23 09/20/23 06:27 13:30 RBC Potassium 5.2 H BUN 35 H Glucose 113 H POC Glucose (mg/dL) 128 H Magnesium 2.4 H Urine Protein Urine Ketones Urine Blood Urine Bacteria Urine Mucus Assessment and Plan Assessment: * Episode of unresponsiveness, unclear cause. Possible syncope, less likely seizure. * Advanced Parkinson's disease * Dementia, appears at least moderate degree. * Presence of Duopa pump * Diabetes * Hypertension * Hyperlipidemia * Sleep apnea, on CPAP machine Plan: * Patient's is interested in palliative care. We will consult palliative care. * Continue same dose of his parkinsonian medication. Resume all medications. * Patient's dementia is progressing. He is already on donepezil 10 mg at bedtime. We will add Namenda 5 mg twice a day. * Patient has Duopa pump, which is functioning well. * Patient had a carotid Doppler performed last admission which revealed atheromatous plaquing without significant flow limiting stenosis. Antegrade flow in both vertebral arteries. * B12 819, folate 19.40. * Discussed with patient's in detail. * Neurology will follow. Thank you for the consult.
[2023-09-21] MEDS: MEMANTINE 5 MG TAB PO SCH ×2 (10:02→21:36)
[2023-09-21] MEDS: MULTIVITAMINS, THERA 1 EACH TAB PO SCH (10:02)
[2023-09-21] MEDS: metFORMIN 500 MG TAB PO SCH (10:02)
[2023-09-21] MEDS: glipiZIDE 5 MG TAB PO SCH (10:03)
[2023-09-21] MEDS: ENOXAPARIN 40 MG/0.4 ML SYRINGE SQ SCH (10:03)
[2023-09-21 12:18] LABS: Glucose,Whole Blood 131 mg/dL (70-110)
--- NOTE | 2023-09-21 15:19 | P.PN ---
Subjective Progress Note Date: 09/21/23 Patient was seen for a follow-up. Patient is laying comfortably in the bed. Offers no new complaints. Patient continues to be pleasantly confused. Patient's was also present today. She has decided for hospice consult. Objective - Vital Signs Vital signs: Vital Signs Temp 97.7 F 09/21/23 08:00 Pulse 89 09/21/23 08:00 Resp 16 09/21/23 08:00 BP 163/82 09/21/23 08:00 Pulse Ox 98 09/21/23 08:00 FiO2 Intake & Output 09/20/23 09/21/23 09/21/23 18:59 06:59 18:59 Weight 54.431 kg Other: Voiding Method Diaper Incontinent # Voids 1 - Exam Patient is alert and awake. He states it is March and the year is 1944. He was told that this is his birthday. However he keeps on repeating the current year as 1944. Then he said it was June and the year is 2003. Patient could not tell what building he is in. He says that it is a building where people get help, gets hair-cut. He believes that he is in [facility]. Rest of the examination is unchanged. Patient has slow mentation. - Labs CBC & Chem 7: 09/20/23 06:27 09/20/23 06:27 Labs: Abnormal Lab Results - Last 24 Hours (Table) 09/20/23 09/20/23 Range/Units 13:30 17:02 POC Glucose (mg/dL) 128 H 178 H (70-110) mg/dL Assessment and Plan Assessment: * Episode of unresponsiveness, unclear cause. Possible syncope, less likely seizure. * Advanced Parkinson's disease * Dementia, appears at least moderate degree. * Presence of Duopa pump * Diabetes * Hypertension * Hyperlipidemia * Sleep apnea, on CPAP machine Plan: * Patient's request hospice consult, which has been initiated. * Continue same dose of his parkinsonian medication. Resume all medications. * Patient's dementia is progressing. He is already on donepezil 10 mg at bedtime. We will add Namenda 5 mg twice a day. * Patient has Duopa pump, which is functioning well. * Patient had a carotid Doppler performed last admission which revealed atheromatous plaquing without significant flow limiting stenosis. Antegrade flow in both vertebral arteries. * B12 819, folate 19.40. * Neurologically no other workup indicated. Discussed with patient's .
--- NOTE | 2023-09-21 16:56 | P.PN ---
Progress Note - Text Progress Note Date: 09/21/23 Records of family meeting: On 09/21/2023 I had a meeting with patient's Vidya Huff was inquiring regarding palliative care and hospice services Different CODE STATUS and services provided discussed in detail At this time CODE STATUS will be changed to DO NOT RESUSCITATE per request Plan is to discharge patient to home with hospice tomorrow.
[2023-09-21] MEDS: CARBIDOPA MISCELLANE SCH (17:13)
[2023-09-21] MEDS: LEVODOPA MISCELLANE SCH (17:13)
[2023-09-21 17:38] LABS: Glucose,Whole Blood 125 mg/dL (70-110)
[2023-09-21 21:08] LABS: Glucose,Whole Blood 149 mg/dL (70-110)
[2023-09-21] MEDS: ASPIRIN 81 MG PO SCH (21:35)
[2023-09-21] MEDS: DONEPEZIL 10 MG TAB PO SCH (21:36)
[2023-09-21] MEDS: FLUoxetine HCL 20 MG CAP PO SCH (21:36)
[2023-09-21] MEDS: ATORVASTATIN 10 MG TAB PO SCH (21:36)
[2023-09-22] MEDS: MEMANTINE 5 MG TAB PO SCH (09:07)
[2023-09-22] MEDS: ENOXAPARIN 40 MG/0.4 ML SYRINGE SQ SCH (09:07)
[2023-09-22] MEDS: metFORMIN 500 MG TAB PO SCH (09:08)
[2023-09-22] MEDS: MULTIVITAMINS, THERA 1 EACH TAB PO SCH (09:08)
[2023-09-22] MEDS: glipiZIDE 5 MG TAB PO SCH (09:09)
[2023-09-22 09:37] VITALS: BP 176/86; PULSE 75; RESP 24; TEMP 98.1
== END 2023-09-22 13:30 | disposition hospice, home (50) ==
LOC: EC 05:44 → 6NMEDSUR 09:06
PROVIDERS: ADMIT Internal Medicine; ATTEND Internal Medicine
DX: R41.82 Altered mental status, unspecified (principal); R55 Syncope and collapse; E86.0 Dehydration; R53.1 Weakness; G20.A1 Parkinson's disease without dyskinesia, without mention of fluctuations; F02.82 Dementia in other diseases classified elsewhere, unspecified severity, with psychotic disturbance; E11.9 Type 2 diabetes mellitus without complications; E78.5 Hyperlipidemia, unspecified; I10 Essential (primary) hypertension; G47.30 Sleep apnea, unspecified; F32.A Depression, unspecified; Z85.828 Personal history of other malignant neoplasm of skin; Z79.82 Long term (current) use of aspirin; Z79.84 Long term (current) use of oral hypoglycemic drugs; Z79.899 Other long term (current) drug therapy; Z66 Do not resuscitate
CPT/HCPCS: 96361 ×4; 96372 ×2; 96360; 99285; 36415; 93005; 80053; 82140; 83735; 84484; 85025; 85610; 85730; 81001; 71045; 70450; G0378 ×3; J1650 ×2